=== PATIENT | female | born 1950 | race Caucasian/White ===

== ENCOUNTER → 2018-09-06 10:42 | Outpatient (CLI) | payer MEDICARE, SELFPAY ==
--- NOTE | 2018-09-06 10:50 | BI_ITS ---
MAMMOGRAPHY - BILATERAL SCREENING REASON FOR EXAM: Female, 67 years old. Routine annual screening examination. PERTINENT HISTORY: Aunt with breast cancer. TECHNIQUE: Digital bilateral breast jacoby (3D mammographic acquisition) in the CC and MLO projections. 2-D mediolateral oblique (MLO) and craniocaudad (CC) views of both breasts were obtained. CAD: Full Field Digital Mammography with Computer Added Detection was performed. COMPARISON: Comparison is made with prior study dated June 30, 2017 and June 26, 2016. FINDINGS: Breast Composition: There are scattered areas of fibroglandular density. There are no dominant masses or suspicious calcifications. Stable small bilateral axillary lymph nodes. No other significant abnormalities are identified. There has been no significant change since the prior study. BI/SCREENING MAMM (CAD), BILAT IMPRESSION: Stable bilateral screening mammogram. Yearly follow-up mammogram recommended. (A) ASSESSMENT CATEGORY: BIRADS Category 2: Benign. A letter regarding these results will be sent to the patient by the facility within 30 days. Approximately 10% of breast cancers are not detected by mammography. A normal mammogram should not delay biopsy of a clinically suspicious abnormality. [id number] Electronically Signed: Niko Gama MD at 12:34 EST , Service support ,
--- NOTE | 2018-09-06 10:50 | BD_ITS ---
STUDY: DUAL ENERGY X-RAY ABSORPTIOMETRY / DXA REASON FOR EXAM: Female, 67 years old. The patient is postmenopausal. Loss of height. TECHNIQUE: Bone Mineral Density (BMD) measurements of lumbar spine and bilateral hips were obtained. COMPARISON: Comparison is made with prior study dated December 10, 2010. FINDINGS: Lumbar Spine (L1-L4): g/cm2 (0.979) / T-score (-1.7) / Z-score (0.0) Findings are suggestive of osteopenia with a moderate fracture risk. Increased thoracic kyphosis. Left Femur Total: g/cm2 (0.788) / T-score (-1.7) / Z-score (-0.4) Left Femoral Neck: g/cm2 (0.745) / T-score (-2.1) / Z-score (-0.5) Right Femur Total: g/cm2 (0.762) / T-score (-1.9) / Z-score (-0.6) Right Femoral Neck: g/cm2 (0.963) / T-score (0.5) / Z-score (1.0) The T-Scores on the most recent prior examination were: Lumbar Spine (L1-L4): There has been improvement of bone density since the previous examination. Left Femur Total: which represents a worsening of 0.5%. Right Femur Total: which represents an improvement of 2.7%. BD/Dexa Bone Density Study IMPRESSION: The patient is considered osteopenic as outlined below according to World Lex Organization (WHO) criteria with a moderate fracture risk. There has been improvement of bone density since the previous examination. Reference Information: The T-score is the number of standard deviations above or below the standard which is normal for young adults at their peak bone mineral density. The World Health Organization (WHO) interprets the T-scores as follows: Above -1 Normal bone density Between -1 and -2.5 Osteopenia Equal to / or below -2.5 Osteoporosis As a practical clinical guideline, osteopenia may be graded as follows: Mild -1 through -1.5 Moderate -1.6 through -2.0 Severe -2.1 through -2.4 The Z-score is the number of standard deviations above or below age-matched controls. A Z-score of less than -1.5 would be considered abnormal. References: 1. NIH Osteoporosis and Related Bone Diseases http://www.osteo.org 2. International Society for Clinical Densitometry http://www.iscd.org 3. National Osteoporosis Foundation http://www.nof.org Electronically Signed: Niko Gama MD at 11:00 EST , Service support ,
== END ==
PROVIDERS: Family Provider Family Medicine; PCP Family Medicine; Referring Provider Family Medicine; Visit Provider Family Medicine
DX: Z12.31 Encounter for screening mammogram for malignant neoplasm of breast (principal); M81.0 Age-related osteoporosis without current pathological fracture; M85.80 Other specified disorders of bone density and structure, unspecified site
CPT/HCPCS: 77063; 77067; 77080

== ENCOUNTER → 2019-09-17 10:48 | Outpatient (CLI) | payer MEDICARE, SELFPAY ==
--- NOTE | 2019-09-17 10:50 | US_ITS ---
STUDY: THYROID ULTRASOUND REASON FOR EXAM: Female, 68 years old. Goiter, partial left thyroidectomy. TECHNIQUE: Ultrasound evaluation of the thyroid was performed with real-time and static walker-scale imaging. COMPARISON: May 03, 2013. FINDINGS: RIGHT LOBE: The right lobe of the thyroid gland measures 5.6 x 2.2 x 2.5 cm. There is a homogeneous echotexture. 2 complex cystic nodules, midpole measuring 1.1 x 0.9 x 0.6 cm and inferior pole measuring 0.8 x 0.8 x 0.6 cm. LEFT LOBE: The left lobe of the thyroid gland measures 6.1 x 2.5 x 2.3 cm cm. There is a homogeneous echotexture. Multiple nodules, inferior pole complex solid nodule measuring 1.6 x 1.2 x 1.2 cm, pole complex solid measuring 1.1 x 0.8 x 0.7 cm and cystic mid pole measuring 0.6 x 0.6 x 0.4 cm. ISTHMUS: The isthmus measures 5 mm which is mildly enlarged. . The regional lymph nodes are normal. US/Thyroid IMPRESSION: Enlarged thyroid gland, with both lobes not significantly changed in size since the prior study. Multiple nodules right lobe not significantly changed in size. Multiple nodules left lobe the largest of which has slightly increased in size since prior study. Electronically Signed: Robert Julien MD at 5:12 EST , Service support ,
== END ==
PROVIDERS: PCP Student in an Organized Health Care Education/Training Program; Referring Provider Student in an Organized Health Care Education/Training Program; Visit Provider Student in an Organized Health Care Education/Training Program
DX: E04.9 Nontoxic goiter, unspecified (principal)
CPT/HCPCS: 76536

== ENCOUNTER → 2019-09-24 11:54 | Outpatient (CLI) | payer MEDICARE, SELFPAY ==
--- NOTE | 2019-09-24 11:56 | BI_ITS ---
MAMMOGRAPHY - BILATERAL SCREENING REASON FOR EXAM: Female, 68 years old. Routine annual screening examination. PERTINENT HISTORY: Aunt with breast cancer. TECHNIQUE: Digital bilateral breast josé luis (3D mammographic acquisition) in the CC and MLO projections. 2-D mediolateral oblique (MLO) and craniocaudad (CC) views of both breasts were obtained. CAD: Full Field Digital Mammography with Computer Added Detection was performed. COMPARISON: Comparison is made with prior examination dated September 06, 2018 and June 30, 2017. FINDINGS: Breast Composition: There are scattered areas of fibroglandular density. There are no dominant masses or suspicious calcifications. Stable benign-appearing bilateral axillary lymph nodes. No other significant abnormalities are identified. There has been no significant change since the prior study. BI/SCREEN MAMM (CAD) W/JOSÉ LUIS BILAT IMPRESSION: Stable bilateral screening mammogram. Yearly follow-up mammogram recommended. (A) ASSESSMENT CATEGORY: BIRADS Category 2: Benign. A letter regarding these results will be sent to the patient by the facility within 30 days. Approximately 10% of breast cancers are not detected by mammography. A normal mammogram should not delay biopsy of a clinically suspicious abnormality. [id number] Electronically Signed: Niko Gama, at 13:05 EST , Service support ,
== END ==
PROVIDERS: PCP Student in an Organized Health Care Education/Training Program; Referring Provider Student in an Organized Health Care Education/Training Program; Visit Provider Student in an Organized Health Care Education/Training Program
DX: Z12.31 Encounter for screening mammogram for malignant neoplasm of breast (principal); M85.80 Other specified disorders of bone density and structure, unspecified site; Z00.00 Encounter for general adult medical examination without abnormal findings; Z80.3 Family history of malignant neoplasm of breast
CPT/HCPCS: 77063; 77067

== ENCOUNTER → 2021-03-27 12:09 | Outpatient (CLI) | payer MEDICARE, SELFPAY ==
--- NOTE | 2021-03-27 12:12 | BI_ITS ---
MAMMOGRAPHY - BILATERAL SCREENING 3-D TOMOSYNTHESIS REASON FOR EXAM: Female, 70 years old. SCREENING PERTINENT HISTORY: No significant family history. TECHNIQUE: 2-D mammograms and 3-D Tomosynthesis of the breast (s) were performed. CAD was performed. COMPARISON: 09/24/2019 FINDINGS: The breast composition is composed of scattered fibroglandular density. Scattered benign calcifications are seen. No dense spiculated masses or suspicious microcalcifications are identified. No architectural distortion is identified. There is no skin thickening or retraction. There has been no significant change since the prior study. BI/SCRN MAMM (CAD)W/JOSÉ LUIS BILAT IMPRESSION: No mammographic signs of malignancy. Routine yearly mammograms recommended. ASSESSMENT CATEGORY: BIRADS Category 1: Negative. A letter regarding these results will be sent to the patient by the facility within 30 days. FOLLOW UP RECOMMENDATION: Yearly follow up mammogram recommended. (A) Approximately 10% of breast cancers are not detected by mammography. A normal mammogram should not delay biopsy of a clinically suspicious abnormality. Electronically Signed: Koko Perdomo MD at 13:35 EDT Tel , Service support ,
== END ==
PROVIDERS: PCP Student in an Organized Health Care Education/Training Program; Referring Provider Student in an Organized Health Care Education/Training Program; Visit Provider Student in an Organized Health Care Education/Training Program
DX: Z12.31 Encounter for screening mammogram for malignant neoplasm of breast (principal)
CPT/HCPCS: 77063; 77067

== ENCOUNTER → 2021-11-18 | Outpatient (CLI) | payer MEDICARE, SELFPAY ==
--- NOTE | 2021-11-18 15:10 | US_ITS ---
STUDY: THYROID ULTRASOUND REASON FOR EXAM: Female, 70 years old. NODULES TECHNIQUE: Ultrasound evaluation of the thyroid was performed with real-time and static walker-scale imaging. COMPARISON: 09/17/2019 FINDINGS: RIGHT LOBE: The right lobe of the thyroid gland measures 5.8 x 2.6 x 1.9 cm. There is a homogeneous echotexture. Mixed solid and cystic nodules (up to TiRads 3) of the right thyroid lobe measuring up to 11 x 8 x 8 mm (stable). No new or enlarging thyroid nodule. LEFT LOBE: The left lobe of the thyroid gland measures 6.2 x 2.7 x 2.2 cm. There is a homogeneous echotexture. Mixed solid and cystic nodules (up to TiRads 3) of the right thyroid lobe measuring up to 14 x 10 x 7 mm (slightly smaller, measured up to 16 mm previously). No new or enlarging thyroid nodule. ISTHMUS: The isthmus measures 5 mm. The regional lymph nodes are normal. US/Thyroid IMPRESSION: Stable to slightly smaller thyroid nodules (up to TiRads 3). No new or enlarging thyroid nodules. Electronically Signed: Dann Cisneros MD ([place]) at 8:22 EDT ,
== END | disposition home or self-care (01) ==
PROVIDERS: PCP Student in an Organized Health Care Education/Training Program; Referring Provider Student in an Organized Health Care Education/Training Program; Visit Provider Student in an Organized Health Care Education/Training Program
DX: E04.2 Nontoxic multinodular goiter (principal)
CPT/HCPCS: 76536

== ENCOUNTER → 2022-04-23 | Outpatient (CLI) | payer MEDICARE, SELFPAY ==
--- NOTE | 2022-04-23 08:09 | BI_ITS ---
MAMMOGRAPHY - BILATERAL SCREENING REASON FOR EXAM: Female, 71 years old. Routine annual screening examination. PERTINENT HISTORY: Aunt with breast cancer. TECHNIQUE: Digital bilateral breast josé luis (3D mammographic acquisition) in the CC and MLO projections. 2-D mediolateral oblique (MLO) and craniocaudad (CC) views of both breasts were obtained. CAD: Full Field Digital Mammography with Computer Added Detection was performed. COMPARISON: Comparison is made with prior study dated 03/27/2021 and 09/24/2019. FINDINGS: Breast Composition: There are scattered areas of fibroglandular density. There are no dominant masses or suspicious calcifications. Stable small benign-appearing bilateral axillary No other significant abnormalities are identified. There has been no significant change since the prior study. BI/SCRN MAMM (CAD)W/JOSÉ LUIS BILAT IMPRESSION: Stable bilateral screening mammogram. Yearly follow-up mammogram recommended. (A) ASSESSMENT CATEGORY: BIRADS Category 2: Benign. A letter regarding these results will be sent to the patient by the facility within 30 days. Approximately 10% of breast cancers are not detected by mammography. A normal mammogram should not delay biopsy of a clinically suspicious abnormality. [id number] Electronically Signed: Niok Gama MD at 10:01 EDT ,
== END | disposition home or self-care (01) ==
LOC: OPBI 08:08
PROVIDERS: PCP Student in an Organized Health Care Education/Training Program; Visit Provider Student in an Organized Health Care Education/Training Program
DX: Z12.31 Encounter for screening mammogram for malignant neoplasm of breast (principal)
CPT/HCPCS: 77063; 77067

== ENCOUNTER → 2022-06-23 | Outpatient (CLI) | payer MEDICARE, SELFPAY ==
--- NOTE | 2022-06-23 09:23 | BD_ITS ---
STUDY: DUAL ENERGY X-RAY ABSORPTIOMETRY / DXA REASON FOR EXAM: Female, 71 years old. Osteopenia TECHNIQUE: Bone Mineral Density (BMD) measurements of lumbar spine and right hip were obtained. COMPARISON: Comparison is made with prior study dated 09/06/2018. FINDINGS: Lumbar Spine (L1-L4): g/cm2 (0.866) / T-score (-1.6) / Z-score (0.6) Findings are suggestive of osteopenia with a moderate fracture risk. Right Femur Total: g/cm2 (0.703) / T-score (-2.0) / Z-score (-0.4) Right Femoral Neck: g/cm2 (0.835) / T-score (-0.1) / Z-score (1.8) The T-Scores on the most recent prior examination were: Lumbar Spine (L1-L4): There has been improvement of bone density since the previous examination. Right Femur Total: which represents a worsening of 0.1%. BD/Dexa Bone Density Study IMPRESSION: The patient is considered osteopenic as outlined below according to World Lex Organization (WHO) criteria with a moderate fracture risk. There has been improvement of bone density since the previous examination. Reference Information: The T-score is the number of standard deviations above or below the standard which is normal for young adults at their peak bone mineral density. The World Health Organization (WHO) interprets the T-scores as follows: Above -1 Normal bone density Between -1 and -2.5 Osteopenia Equal to / or below -2.5 Osteoporosis As a practical clinical guideline, osteopenia may be graded as follows: Mild -1 through -1.5 Moderate -1.6 through -2.0 Severe -2.1 through -2.4 The Z-score is the number of standard deviations above or below age-matched controls. A Z-score of less than -1.5 would be considered abnormal. References: 1. NIH Osteoporosis and Related Bone Diseases www osteo.org 2. International Society for Clinical Densitometry www iscd.org 3. National Osteoporosis Foundation www nof.org Electronically Signed: Niko Gama MD at 10:29 EST ,
== END | disposition home or self-care (01) ==
LOC: OPBD 09:14
PROVIDERS: PCP Student in an Organized Health Care Education/Training Program; Visit Provider Internal Medicine Endocrinology, Diabetes & Metabolism
DX: N95.9 Unspecified menopausal and perimenopausal disorder (principal); Z78.0 Asymptomatic menopausal state
CPT/HCPCS: 77080

== ENCOUNTER 2023-02-10 04:26 | Emergency (ER) | payer MEDICARE, SELFPAY ==
[2023-02-10 04:28] VITALS: BP 115/86; PULSE 170; RESP 16; TEMP 36.8; O2SAT 100; BMI 29.5
[2023-02-10] MEDS: Adenosine 6 MG/2 ML Syringe IV (04:34)
[2023-02-10] MEDS: Adenosine 6 MG/2 ML Syringe 12 MG IV (04:39)
--- NOTE | 2023-02-10 04:39 | EDS_ITS ---
HPI History of Present Illness Chief Complaint: Palpitations Informant: patient Narrative Narrative: Patient presents with racing heartbeat that woke her up about an hour ago at about 3 AM. Maybe she has had this once before but it was brief, she followed up with her doctor and was put on medication for high blood pressure, that was several months ago. No known history of heart problems otherwise. She denies any chest discomfort tonight, dyspnea, syncope or near syncope. No other systemic symptoms. No recent illness, no long travel or immobilization/hospitalization recently, no history of leg pain or swelling, no history of venous thromboembolic disease. States that she usually does not drink caffeine, yesterday she did have a couple caffeinated beverages. No ngjt-ibs-inpijpn medications recently. No drug use. [facility] Medical History Arthritis Atrophy of vagina Goiter History of blood clots History of blood transfusion History of bone fractures History of cyst of breast mitral valve prolaspe Osteopenia Weight loss Home Medications aspirin 81 mg tablet,delayed release 81 mg PO DAILY@0800 06/11/13 [History Last Taken Unknown] calcium carbonate 600 mg-vitamin D3 20 mcg (800 unit) tablet 1 tab PO DAILY@0800 06/11/13 [History Last Taken Unknown] crbpsbwq-ljd-twiua acid 0.4 mg-lycopene 300 mcg-lutein 250 mcg tablet 1 ea PO DAILY 06/11/13 [History Last Taken Unknown] lisinopril 10 mg tablet 10 mg PO DAILY 02/10/23 [History Last Taken Unknown] Allergy/AdvReac Type Severity Reaction Status Date / Time chlorhexidine [From Aaliyah-Hex] Allergy Intermediate Hives Verified 02/10/23 04:42 minocycline Allergy unknown Verified 02/10/23 04:42 pneumococcal vaccine Allergy unknown Verified 02/10/23 04:42 [From Prevnar 13 (PF)] loratadine [From Claritin] AdvReac Other Verified 02/10/23 04:42 Family History Father Heart disease Kidney disease Mother Heart disease Uncle Heart disease Sister Hypertension Surgical History H/O thyroidectomy Social History Smoking Status: Never smoker alcohol intake: current alcohol intake frequency: holidays/special occasions only Alcohol type: wine substance use type: does not use what type of physical activity do you participate in: walking frequency: 3-4 times per week ROS ROS ED Constitutional Constitutional ED: Denies chills or fever(s) Eyes Eyes: Denies change in vision or diplopia ENT ENT ED: Denies rhinorrhea or sore throat Cardiovascular Cardiovascular: Reports palpitations and racing heartbeat; Denies chest pain Respiratory/Chest Respiratory/Chest: Denies cough or dyspnea Gastrointestinal Gastrointestinal: Denies abdominal pain, diarrhea, nausea or vomiting Genitourinary Genitourinary ED: Denies dysuria or hematuria Musculoskeletal Musculoskeletal: Denies back pain or neck pain Integumentary Denies abscess or rash Neurologic Neurologic: Denies headache(s), paresthesias or weakness Psychiatric Psychiatric: Denies anxiety or suicidal thoughts EXAM Physical Exam Const Vital Signs: 02/10/23 04:28 02/10/23 04:30 02/10/23 04:39 Temperature 98.2 F Temperature Source Temporal Pulse Rate 170 H Respiratory Rate 16 Respiratory Effort Normal Blood Pressure 115/86 H Blood Pressure Mean 95 Pulse Ox 100 Oxygen Delivery Method Room Air Room Air 02/10/23 04:52 02/10/23 05:35 Temperature Temperature Source Pulse Rate 88 85 Respiratory Rate 18 15 Respiratory Effort Blood Pressure 117/68 119/75 Blood Pressure Mean 84 89 Pulse Ox 100 95 Oxygen Delivery Method Room Air Room Air Positive well nourished and well developed General Appearance ED: well developed and NAD HEENT Reports moist mucous membranes normocephalic and atraumatic Eyes PERRL and EOMs intact bilaterally Neck full ROM and supple Resp normal respiratory effort and clear to auscultation bilaterally Cardio regular rate, regular rhythm and no murmurs Rate: tachycardic GI non-tender and non-distended Auscultation: normoactive bowel sounds Palpation: soft Back/Spine no CVA tenderness General Back: other FROM Extremity normal to inspection General Extremety ED: Negative for edema, pulses abnormal or tenderness General Extremity: Negative for edema or pulses abnormal Neuro oriented x3, CN's II-XII intact bilaterally and no sensory deficits noted Sensorium / Orientation: awake and alert Motor Exam: strength 5/5 throughout Psych mental status grossly normal Mood & Affect: anxious Skin no rashes or lesions noted and no wounds MDM MDM MDM Narrative Medical decision making narrative: Patient appears to be in SVT. It is faster than a flutter typically is, so she was given adenosine 6 mg IV push, this did not result in any change in her rhythm or ectopy/pauses, so this was repeated with 12 mg which resulted in breaking the rhythm to sinus tachycardia, the patient did feel better with resolution of symptoms. She had no recurrence of SVT or other dysrhythmias while being monitored. Blood work unremarkable, including troponin. With 1 episode I do not think we need to change any of her medications right now, and I do not think we need any other emergent studies or admission since she had no symptoms of angina. I advised close outpatient follow-up with cardiology return to the ER if she has recurrent symptoms/episodes. She is comfortable with that plan. Lab Data Attestation: I reviewed the patient's lab results. Labs: Laboratory Results - last 24 hr 02/10/23 04:30 WBC 10.1 RBC 4.55 Hgb 12.7 Hct 40.5 MCV 89.0 MCH 27.9 MCHC 31.4 L RDW Std Deviation 46.1 H RDW Coeff of Stephenie 14.0 Plt Count 440 MPV 9.3 Immature Gran % (Auto) 0.300 Neut % (Auto) 40.5 L Lymph % (Auto) 43.6 H [place] % (Auto) 9.8 Eos % (Auto) 5.1 H Baso % (Auto) 0.7 Absolute Neuts (auto) 4.1 Absolute Lymphs (auto) 4.42 Nucleated RBC % 0 Sodium 140 Potassium 3.6 Chloride 104 Carbon Dioxide 29.0 Anion Gap 7 BUN 9 Creatinine 0.79 Estim Creat Clear Calc 36.53 Est GFR (MDRD) Af Amer 92 Est GFR (MDRD) Non-Af 76 BUN/Creatinine Ratio 11.3 Glucose 132 H Calcium 8.9 Troponin I High Sens 6 Rhythm Strip Rhythm Strip: SVT Rate: 175 Ectopy: None EKG Initial EKG: Attestation: I personally reviewed and interpreted this EKG as follows: Interpretation: No Acute Injury Pattern, Non-Specific ST Changes and - (Narrow complex supraventricular tachycardia) Prior: Changed (rhythm) Follow-up EKG: Attestation: I personally reviewed and interpreted this EKG as follows: Interpretation: Sinus Rhythm and No Acute Injury Pattern Prior EKG tracings: available for review (old, 101) Prior: Changed Procedures Other Procedures Procedure(s): Pharmacologic cardioversion with IV adenosine Critical Care Time Critical Care Time: Yes Critical care time (excluding procedures): 30-74 minutes (33 min, not including procedure time), Including time spent:, Discussing w/Patient &/or Family/Stereotype Molder, Discussing w/Consultants, Arranging Admission or Transfer and Performing Direct Patient Care at Bedside Discharge Plan Triage Chief Complaint: Palpitations ED Provider: Андрей Chang Dx/Rx/DC Orders Clinical Impression: Supraventricular tachycardia Instructions: ED Understanding Supraventricular Tachycardia (SVT) Prescriptions: No Action aspirin 81 MG tablet 81 mg PO DAILY@0800 cuuzpyja-aou-VW-lycopen-lutein 1 EACH tablet 1 ea PO DAILY calcium carbonate-vitamin D3 1 TAB tablet 1 tab PO DAILY@0800 lisinopril 10 mg tablet 10 mg PO DAILY Patient Comments: TAKE 1 TABLET BY MOUTH EVERY DAY Primary Care Provider: Yaakov Morris Referrals: Jaleel Wolfe MD [Med Staff - Active Staff] - As soon as possible Yaakov Morris DO [Primary Care Provider] - Disposition Disposition: Home, Self Care
[2023-02-10 04:45] LABS: Absolute Lymphocyte Count 4.42 X10^3/uL (0.83-4.51); Absolute Neutrophil Count 4.1 X10^3/uL (2.0-7.7); Basophil# 0.07 X10^3/uL; Basophil% 0.7 % (0-1); Eosinophil# 0.52 X10^3/uL; Eosinophils% 5.1 % (0-5); Hematocrit 40.5 % (37-47); Hemoglobin 12.7 g/dL (12.0-15.0); Lymphocyte # 4.42 X10^3/ul (0.83-4.51); Lymphocyte % 43.6 % (19-41); Mean Corp Hgb Conc 31.4 g/dL (32-36); Mean Corpuscular Hgb 27.9 pg (27.0-32.0); Mean Platelet Vol. 9.3 fl (6.2-12.0); Monocyte# 0.99 X10^3/uL; Monocyte% 9.8 % (0-10); NRBC Flagged by Analyzer 0 % (0-5); Neutrophil % 40.5 % (47-70); Platelet Count 440 K/mm3 (150-450); RBC Distribution Width SD 46.1 fl (35.1-43.9); Red Blood Count 4.55 M/mm3 (4.2-5.4); White Blood Count 10.1 K/mm3 (4.4-11.0)
[2023-02-10 04:52] VITALS: BP 117/68; PULSE 88; RESP 18; O2SAT 100
[2023-02-10 05:03] LABS: Anion Gap 7 (5-15); BUN 9 mg/dL (7-18); BUN/Creat Ratio 11.3 RATIO (10-20); Calcium,Total 8.9 mg/dL (8.5-10.1); Chloride 104 mmol/L (98-107); Creatinine, Serum 0.79 mg/dL (0.55-1.02); EST Glomerular Filtration Rate 76 mL/min (>60); Est Glom Filt Rate - Afr Amer 92 mL/min (>60); Estimated Creatinine Clearance 36.53 ml/min; Glucose 132 mg/dL (74-106); Potassium 3.6 mmol/L (3.5-5.1); Sodium Level 140 mmol/L (136-145); Troponin-I HS (w/2H Reflex) 6 pg/mL (3.0-54.0)
[2023-02-10 05:35] VITALS: BP 119/75; PULSE 85; RESP 15; O2SAT 95
[2023-02-10 05:57] VITALS: BP 120/75; PULSE 98; RESP 17; O2SAT 100
[2023-02-10 06:38] LABS: Reflex Troponin-HS? (from REC) Y
== END 2023-02-10 05:57 | disposition home or self-care (01) ==
PROVIDERS: Emergency Provider Emergency Medicine; PCP Student in an Organized Health Care Education/Training Program; Visit Provider Emergency Medicine
DX: I47.1 Supraventricular tachycardia (principal); I10 Essential (primary) hypertension; Z79.82 Long term (current) use of aspirin; Z79.899 Other long term (current) drug therapy
CPT/HCPCS: 80048; 84484; 85025; 93005; 96374; 99284; A4216; J0153

== ENCOUNTER 2023-02-25 10:45 | Emergency (ER) | payer MEDICARE, SELFPAY ==
[2023-02-25 10:46] VITALS: BP 185/100; PULSE 104; RESP 14; TEMP 36; O2SAT 99; BMI 28.3
--- NOTE | 2023-02-25 10:58 | EKG12_ITS ---
Test Reason : PALP Blood Pressure : / mmHG Vent. Rate : 084 BPM Atrial Rate : 084 BPM P-R Int : 162 ms QRS Dur : 076 ms QT Int : 362 ms P-R-T Axes : 074 003 047 degrees QTc Int : 427 ms Normal sinus rhythm Normal ECG Confirmed by ARTUR PEACOCK, VERENICE ([id number]), photograph editor RICKI LEPE ([id number]) on 02/28/2023 1:08:33 PM Referred By: Confirmed By:VERENICE SIDDIQUI MD
[2023-02-25] MEDS: Aspirin 81 MG TAB.CHEW 324 MG PO (11:10)
[2023-02-25 11:11] VITALS: BP 151/84; PULSE 81; RESP 21; O2SAT 100
[2023-02-25 11:19] LABS: Absolute Lymphocyte Count 1.76 X10^3/uL (0.83-4.51); Absolute Neutrophil Count 3.6 X10^3/uL (2.0-7.7); Basophil# 0.02 X10^3/uL; Basophil% 0.3 % (0-1); Eosinophil# 0.07 X10^3/uL; Eosinophils% 1.2 % (0-5); Hematocrit 38.9 % (37-47); Hemoglobin 12.9 g/dL (12.0-15.0); Lymphocyte # 1.76 X10^3/ul (0.83-4.51); Lymphocyte % 29.5 % (19-41); Mean Corp Hgb Conc 33.2 g/dL (32-36); Mean Corpuscular Hgb 28.2 pg (27.0-32.0); Mean Corpuscular Volume 85.1 fL (81-99); Mean Platelet Vol. 8.7 fl (6.2-12.0); Monocyte# 0.48 X10^3/uL; NRBC Flagged by Analyzer 0 % (0-5); Neutrophil # 3.63 X10^3/uL (2.7-7.7); Neutrophil % 60.8 % (47-70); Platelet Count 401 K/mm3 (150-450); RBC Distribution Width CV 13.7 % (11.6-14.6); RBC Distribution Width SD 42.5 fl (35.1-43.9); Red Blood Count 4.57 M/mm3 (4.2-5.4)
--- NOTE | 2023-02-25 11:25 | EX.ED.DYSGE1 ---
HPI History of Present Illness Chief Complaint: Palpitations Narrative Narrative: 72-year-old female presenting with palpitations. She states that last evening she started to worry about things and she felt her heart rate go up. Since he has a history of SVT she is concerned she might be in SVT. She states that she woke up this morning and was wearing again and started to have palpitations again. She states that she was driving after this. While she was sitting in a light she felt a moment of weakness and then she felt normal again. Patient has not had any chest pain and does not feel short of breath. No nausea or vomiting. No dizziness. Patient was seen recently for SVT and she is not on any rate control. She made a follow-up appoint with Dr. Reid later in February. [facility] Medical History Arthritis Atrophy of vagina Goiter History of blood clots History of blood transfusion History of bone fractures History of cyst of breast mitral valve prolaspe Osteopenia Weight loss Home Medications aspirin 81 mg tablet,delayed release 81 mg PO DAILY@0800 06/11/13 [History Last Taken Unknown] calcium carbonate 600 mg-vitamin D3 20 mcg (800 unit) tablet 1 tab PO DAILY@0800 06/11/13 [History Last Taken Unknown] gygkqdts-yvd-adxxe acid 0.4 mg-lycopene 300 mcg-lutein 250 mcg tablet 1 ea PO DAILY 06/11/13 [History Last Taken Unknown] lisinopril 10 mg tablet 10 mg PO DAILY 02/10/23 [History Last Taken Unknown] metoprolol tartrate 25 mg tablet 25 mg PO BID #60 tabs 02/25/23 [Rx Last Taken Unknown] Allergy/AdvReac Type Severity Reaction Status Date / Time chlorhexidine [From Aaliyah-Hex] Allergy Intermediate Hives Verified 02/25/23 10:45 minocycline Allergy unknown Verified 02/25/23 10:45 pneumococcal vaccine Allergy unknown Verified 02/25/23 10:45 [From Prevnar 13 (PF)] loratadine [From Claritin] AdvReac Other Verified 02/25/23 10:45 Family History Father Heart disease Kidney disease Mother Heart disease Uncle Heart disease Sister Hypertension Surgical History H/O thyroidectomy Social History Smoking Status: Never smoker alcohol intake: current alcohol intake frequency: holidays/special occasions only Alcohol type: wine substance use type: does not use what type of physical activity do you participate in: walking frequency: 3-4 times per week ROS ROS ED Constitutional Constitutional ED: Denies chills, fever(s) or sweats Eyes Eyes: Denies blurry vision or change in vision ENT ENT ED: Denies ear pain or sore throat Cardiovascular Cardiovascular: Reports palpitations and racing heartbeat; Denies chest pain Respiratory/Chest Respiratory/Chest: Denies cough, dyspnea or sputum Gastrointestinal Gastrointestinal: Denies abdominal pain, constipation, diarrhea, nausea or vomiting Genitourinary Genitourinary ED: Denies dysuria, hematuria or urinary frequency Musculoskeletal Musculoskeletal: Denies arthralgias, myalgias or neck pain Integumentary Denies abscess, Abrasions or rash Neurologic Neurologic: Denies headache(s), paresthesias or weakness Psychiatric Psychiatric: Reports anxiety; Denies depression, suicidal ideation or suicidal thoughts Endocrine Endocrinology: Denies polydipsia or polyuria EXAM Physical Exam Const Vital Signs: 02/25/23 10:46 02/25/23 11:11 02/25/23 11:11 Temperature 96.8 F L Temperature Source Temporal Pulse Rate 104 H 81 Respiratory Rate 14 21 H Respiratory Effort Blood Pressure 185/100 H 151/84 H Blood Pressure Mean 128 106 Pulse Ox 99 100 Oxygen Delivery Method Room Air Room Air Room Air 02/25/23 11:11 02/25/23 13:10 Temperature Temperature Source Pulse Rate 77 Respiratory Rate 17 Respiratory Effort Normal Non-Labored Blood Pressure 160/107 H Blood Pressure Mean 124 Pulse Ox Oxygen Delivery Method Positive well nourished General Appearance ED: NAD HEENT Reports moist mucous membranes Eyes PERRL and EOMs intact bilaterally Resp normal respiratory effort and clear to auscultation bilaterally Cardio regular rate and regular rhythm Neuro oriented x3 and CN's II-XII intact bilaterally Skin no rashes or lesions noted MDM MDM MDM Narrative Medical decision making narrative: Patient presenting with palpitations. She is concerned she was in SVT. It does sound as if she converted while she was sitting at the stoplight. She is not reporting any chest pain. Her EKG was a normal sinus rhythm with a ventricular rate of 84 bpm without sign of ischemic change or ectopy. I did obtain a CBC and CMP to check her white blood cell count, hemoglobin, electrolytes, renal function, liver function. These were all within normal limits. High-sensitivity troponin and EKG were checked for transfer ischemia. High-sensitivity troponin is 4. Since she had the symptoms since last night I do not believe she needs a delta troponin. Chest x-ray my interpretation shows no acute process. Radiologist services and agrees. Discussed the case with Dr. Troncoso he has the patient is supposed to follow-up with Dr. Reid this month. We will start her on metoprolol tartrate 25 mg p.o. twice daily to keep her out of SVT. She is amenable to this. She is discharged home in stable condition. Impression: 1. Palpitations 2. History of SVT Lab Data Attestation: I reviewed the patient's lab results. Labs: Laboratory Results - last 24 hr 02/25/23 11:00 WBC 6.0 RBC 4.57 Hgb 12.9 Hct 38.9 MCV 85.1 MCH 28.2 MCHC 33.2 RDW Std Deviation 42.5 RDW Coeff of Stephenie 13.7 Plt Count 401 MPV 8.7 Immature Gran % (Auto) 0.200 Neut % (Auto) 60.8 Lymph % (Auto) 29.5 Robertson % (Auto) 8.0 Eos % (Auto) 1.2 Baso % (Auto) 0.3 Absolute Neuts (auto) 3.6 Absolute Lymphs (auto) 1.76 Nucleated RBC % 0 Sodium 140 Potassium 3.7 Chloride 106 Carbon Dioxide 29.0 Anion Gap 5 BUN 9 Creatinine 0.69 Estim Creat Clear Calc 36.53 Est GFR (MDRD) Af Amer 107 Est GFR (MDRD) Non-Af 89 BUN/Creatinine Ratio 13.0 Glucose 107 H Calcium 9.0 Total Bilirubin 0.40 AST 19 ALT 24 Alkaline Phosphatase 101 Troponin I High Sens 4 Total Protein 7.6 Albumin 3.7 Globulin 3.9 Albumin/Globulin Ratio 0.9 Radiography Diagnostic Testing: Clinical Impression(s) from Imaging Studies Chest X-Ray 02/25/23 11:54 IMPRESSION: No acute abnormality is seen. Electronically Signed: Niko Gama MD at 12:36 EDT , Discharge Plan Triage Chief Complaint: Palpitations ED Provider: Tevin Vargas Dx/Rx/DC Orders Instructions: ED Understanding Supraventricular Tachycardia (SVT) Prescriptions: New metoprolol tartrate 25 mg tablet 25 mg PO BID Qty: 60 0RF No Action aspirin 81 MG tablet 81 mg PO DAILY@0800 pzajzcas-pkr-DM-lycopen-lutein 1 EACH tablet 1 ea PO DAILY calcium carbonate-vitamin D3 1 TAB tablet 1 tab PO DAILY@0800 lisinopril 10 mg tablet 10 mg PO DAILY Patient Comments: TAKE 1 TABLET BY MOUTH EVERY DAY Primary Care Provider: Yaakov Morris Referrals: Jorgito Reid MD [Med Staff - Active Staff] - 3-5 Days Yaakov Mroris DO [Primary Care Provider] - Disposition Disposition: Home, Self Care Discharge Date/Time: 02/25/23 13:17
[2023-02-25 11:37] LABS: ALB/GLOB Ratio 0.9 RATIO (0.9-2.4); AST(SGOT) 19 U/L (15-37); Alanine Aminotransfer ALT/SGPT 24 U/L (13-56); Albumin, Serum 3.7 g/dL (3.2-5.0); Alkaline Phosphatase 101 U/L (45-117); Anion Gap 5 (5-15); BUN 9 mg/dL (7-18); Chloride 106 mmol/L (98-107); Creatinine, Serum 0.69 mg/dL (0.55-1.02); EST Glomerular Filtration Rate 89 mL/min (>60); Est Glom Filt Rate - Afr Amer 107 mL/min (>60); Estimated Creatinine Clearance 36.53 ml/min; Globulin 3.9 g/dL (2.2-4.2); Glucose 107 mg/dL (74-106); Potassium 3.7 mmol/L (3.5-5.1); Protein, Total 7.6 g/dL (6.4-8.2); Sodium Level 140 mmol/L (136-145); Troponin-I HS 4 pg/mL (3.0-54.0)
--- NOTE | 2023-02-25 11:54 | RAD_ITS ---
STUDY: X-RAY CHEST REASON FOR EXAM: Female, 72 years old. chest pain TECHNIQUE: Single AP portable view of the chest. COMPARISON: None. FINDINGS: EKG electrodes are seen. Scattered calcified granulomas. Lungs are clear. There is no demonstrated pleural abnormality. Normal size heart. Calcified right hilar lymph nodes. Normal visualized pulmonary arteries. There is atherosclerotic calcification of the aortic arch with tortuosity. Normal visualized thoracic spine. Normal visualized ribs, clavicles, and shoulders. There is no demonstrated abnormality of the visualized soft tissue structures of the upper abdomen. RAD/Chest 1 View (Portable) IMPRESSION: No acute abnormality is seen. Electronically Signed: Niko Gama MD at 12:36 EDT ,
[2023-02-25 13:10] VITALS: BP 160/107; PULSE 77; RESP 17
== END 2023-02-25 13:17 | disposition home or self-care (01) ==
PROVIDERS: Emergency Provider Student in an Organized Health Care Education/Training Program; PCP Student in an Organized Health Care Education/Training Program; Visit Provider Student in an Organized Health Care Education/Training Program
DX: R00.2 Palpitations (principal); E89.0 Postprocedural hypothyroidism; Z79.82 Long term (current) use of aspirin; Z79.899 Other long term (current) drug therapy
CPT/HCPCS: 71045; 80053; 84484; 85025; 93005; 99283

== ENCOUNTER → 2023-03-09 | Outpatient (CLI) | payer MEDICARE, SELFPAY ==
[2023-03-09 12:02] LABS: Thyroid Stim Hormone (TSH) 0.19 uIU/mL (0.358-3.74)
== END | disposition home or self-care (01) ==
LOC: LAB 10:59
PROVIDERS: PCP Student in an Organized Health Care Education/Training Program; Referring Provider Internal Medicine Cardiovascular Disease; Visit Provider Internal Medicine Cardiovascular Disease
DX: E04.2 Nontoxic multinodular goiter (principal); I10 Essential (primary) hypertension; R00.2 Palpitations; Z86.79 Personal history of other diseases of the circulatory system
CPT/HCPCS: 36415; 84443

== ENCOUNTER → 2023-04-06 | Outpatient (CLI) | payer MEDICARE, SELFPAY ==
--- NOTE | 2023-04-06 06:57 | ECHOD_ITS ---
Reason For Study: Chest Pain Procedure This was a 2D Doppler, Color Flow transthoracic echocardiogram. Exam performed in department. Left Ventricle Normal size and thickness. The left ventricular ejection fraction is 65 %. Normal diastology for age. Right Ventricle Normal right ventricle. Atria The left and right atria are normal. Mitral Valve Mild (1+) mitral valve insufficiency. Tricuspid Valve Mild tricuspid valve insufficiency. Normal pulmonary artery pressure. Aortic Valve Normal aortic valve. Pulmonic Valve Mild (1+) pulmonic valve insufficiency. Great Vessels Normal sized aortic root. Pericardium/Pleural No pericardial effusion. MMode/2D Measurements & Calculations LVIDd: 4.4 cm IVSd: 0.97 cm Ao root diam: 3.1 cm LVIDs: 2.2 cm LVPWd: 1.0 cm RVDd: 3.0 cm FS: 50.1 % LAV(MOD-bp): 33.8 ml LVAd ap4: 19.3 cm2 SV(MOD-sp4): 28.9 ml LAV(MOD-bp) Indexed: 20.9 ml/m2 LVLd ap4: 6.8 cm LAV(MOD-sp2): 33.9 ml EDV(MOD-sp4): 45.0 ml LAV(MOD-sp4): 29.9 ml EDV(sp4-el): 46.5 ml LVAs ap4: 9.7 cm2 LVLs ap4: 5.1 cm ESV(MOD-sp4): 16.0 ml ESV(sp4-el): 15.8 ml EF(MOD-sp4): 64.3 % EF(sp4-el): 66.1 % SV(sp4-el): 30.8 ml LA A4 area: 13.8 cm2 LA dimension(2D): 3.8 cm RA A4 area: 10.9 cm2 TAPSE: 2.5 cm Time Measurements MV dec time: 0.21 sec Doppler Measurements & Calculations MV E max zaheer: 96.1 cm/sec Lat Peak E' Zaheer: 9.1 cm/sec Med Peak E' Zaheer: 7.9 cm/sec MV A max zaheer: 107.9 cm/sec E/E' lat: 10.6 E/E' med: 12.2 MV E/A: 0.89 Ao V2 max: 147.2 cm/sec LV V1 max: 128.0 cm/sec MV dec slope: 447.6 cm/sec2 Ao max P.7 mmHg LV V1 max P.6 mmHg Ao V2 mean: 111.4 cm/sec LV V1 mean P.3 mmHg Ao mean P.3 mmHg LV V1 mean: 84.1 cm/sec Ao V2 VTI: 31.0 cm LV V1 VTI: 26.7 cm AV (velocity ratio): 0.86 PA V2 max: 104.0 cm/sec PI end-d zaheer: 110.5 cm/sec TR max zaheer: 257.2 cm/sec TR max P.5 mmHg ECHO/Echo Complete Interpretation Summary The left ventricular ejection fraction is 65 %. Mild (1+) mitral valve insufficiency. Mild tricuspid valve insufficiency. Mild (1+) pulmonic valve insufficiency. Ordering Physician: Jorgito Reid Referring Physician: Yaakov Morris Performed By: Amaya Garcia, RDCS, RVT
--- NOTE | 2023-04-06 13:04 | STRESSREP ---
Stress Test Report Date: 04/06/2023 Procedure: Pharmacologic stress nuclear imaging study Indications: Arrhythmia Consent: Per the patient Procedure: The patient underwent pharmacologic (Regadenoson 0.4mg ) evaluation with a peak heart rate of 106 beats per minute (71%predicted maximal heart rate) and a peak blood pressure of 136/70 mmHg. The baseline ECG demonstrated sinus rhythm. The peak pharmacologic ECG demonstrated no ischemic changes. There were no cardiac dysrhythmias pretest, during pharmacologic infusion, or recovery. There was no complaint of chest discomfort during pharmacologic infusion or recovery. The patient was injected with 11.1 millicuries of technetium 99m Cardiolite and subsequently rest SPECT Cardiolite nuclear imaging was obtained in the horizontal long, vertical long, and short axis views. The patient underwent pharmacologic (Regadenoson) evaluation. The patient was injected with 33.2 millicuries of technetium 99m Cardiolite and subsequently stress SPECT Cardiolite nuclear imaging was obtained in the horizontal long, vertical long, and short axis views. A gated Cardiolite study at peak stress was obtained. The examination was stopped secondary to completion of protocol. Rest and stress SPECT Cardiolite nuclear imaging status post realignment, normalization, and attenuation correction demonstrate no fixed or reversible perfusion defects. There is end systolic thickening and brightening. The gated Cardiolite study demonstrates myocardial thickening and inward wall motion. The reported LVEF is 79%. Impression: 1. Pharmacologic (Regadenoson) evaluation 2. Peak pharmacologic ECG with with no ischemic changes. 3. There were no cardiac dysrhythmias pretest, during pharmacologic infusion, or recovery. 5. Rest and stress SPECT Cardiolite nuclear imaging demonstrate relative uniform tracer uptake and myocardial perfusion appearing within normal limits. 6. The gated Cardiolite study reports an LVEF of 79%. This note was generated with [email or web address] software. It may contain incorrect words, spelling, and punctuation that were not noted in checking the note before signing.
== END | disposition home or self-care (01) ==
LOC: CVS 06:53
PROVIDERS: PCP Student in an Organized Health Care Education/Training Program; Referring Provider Internal Medicine Cardiovascular Disease; Visit Provider Internal Medicine Cardiovascular Disease
DX: R00.2 Palpitations (principal); I10 Essential (primary) hypertension; Z86.79 Personal history of other diseases of the circulatory system; R07.9 Chest pain, unspecified
CPT/HCPCS: 78452; 93017; 93306; A9500; A4216; J2785

== ENCOUNTER → 2023-05-12 | Outpatient (CLI) | payer MEDICARE, SELFPAY ==
--- NOTE | 2023-05-12 13:42 | BI_ITS ---
MAMMOGRAPHY - BILATERAL SCREENING REASON FOR EXAM: Female, 72 years old. Routine annual screening examination. PERTINENT HISTORY: Aunt with breast cancer. TECHNIQUE: Digital bilateral breast josé luis (3D mammographic acquisition) in the CC and MLO projections. 2-D mediolateral oblique (MLO) and craniocaudad (CC) views of both breasts were obtained. CAD: Full Field Digital Mammography with Computer Added Detection was performed. COMPARISON: Comparison is made with prior study April 23, 2022 and March 27, 2021. FINDINGS: Breast Composition: There are scattered areas of fibroglandular density. There are no dominant masses or suspicious calcifications. Stable small benign-appearing bilateral axillary lymph nodes. No other significant abnormalities are identified. There has been no significant change since the prior study. BI/SCRN MAMM (CAD)W/JOSÉ LUIS BILAT IMPRESSION: Stable bilateral screening mammogram. Yearly follow-up mammogram recommended. (A) ASSESSMENT CATEGORY: BIRADS Category 2: Benign. A letter regarding these results will be sent to the patient by the facility within 30 days. Approximately 10% of breast cancers are not detected by mammography. A normal mammogram should not delay biopsy of a clinically suspicious abnormality. [id number] Electronically Signed: Niko Gama MD at 15:23 EDT ,
== END | disposition home or self-care (01) ==
LOC: OPBI 13:41
PROVIDERS: PCP Student in an Organized Health Care Education/Training Program; Referring Provider Student in an Organized Health Care Education/Training Program; Visit Provider Student in an Organized Health Care Education/Training Program
DX: Z12.31 Encounter for screening mammogram for malignant neoplasm of breast (principal)
CPT/HCPCS: 77063; 77067

== ENCOUNTER 2023-06-25 03:02 | Emergency (ER) | payer MEDICARE, SELFPAY ==
[2023-06-25 03:03] VITALS: BP 168/94; PULSE 93; RESP 13; TEMP 36.6; O2SAT 95; BMI 29.3
--- NOTE | 2023-06-25 03:29 | EKG12_ITS ---
Test Reason : PALPITATIONS Blood Pressure : / mmHG Vent. Rate : 086 BPM Atrial Rate : 086 BPM P-R Int : 214 ms QRS Dur : 082 ms QT Int : 364 ms P-R-T Axes : 053 008 025 degrees QTc Int : 435 ms Sinus rhythm with 1st degree A-V block Otherwise normal ECG Confirmed by ARTUR PEACOCK, VERENICE ([id number]), material expeditor MONICA MORENO ([id number]) on 06/27/2023 10:51:07 AM Referred By: MUNA Confirmed By:VERENICE SIDDIQUI MD
--- NOTE | 2023-06-25 03:29 | EX.ED.DYSGE1 ---
HPI History of Present Illness Chief Complaint: Palpitations Informant: patient Narrative Narrative: Patient presents by EMS after waking up suddenly with racing heartbeat. She felt like she was in SVT, given prior episodes of this. She has had to come to the ED to be cardioverted from it in the past. Patient states maybe this lasted between 30 and 45 minutes today, by the time EMS arrived her symptoms were gone and she felt better. Their EKG was normal, and her heart rate was 90. She states she clocked her heart rate at home prior to them arriving and it was 180, and her blood pressure was high. She denies any chest pain, dyspnea, lightheadedness, syncope, or any other symptoms. Now she is asymptomatic except for the diarrhea she has been having. She states she has had diarrhea for about 2-1/2 weeks. She has been following with her doctor for this, it is for the most part between 5 and 10 bouts of watery nonbloody diarrhea per day. No abdominal pain. No nausea or vomiting. She thinks it may be related to sertraline she started 2 months ago. She has had stool studies that were negative, no recent antibiotics. [facility] Medical History Arthritis Atrophy of vagina Axillary lymphadenopathy Essential hypertension Family history of ischemic heart disease Goiter History of blood clots History of blood transfusion History of bone fractures History of cyst of breast History of paroxysmal supraventricular tachycardia Hyperlipidemia Hypertriglyceridemia Inguinal lymphadenopathy Iron deficiency anemia Low TSH level Mild mitral valve prolapse mitral valve prolaspe Multinodular goiter (nontoxic) Multiple thyroid nodules Osteopenia Osteopenia determined by x-ray Osteoporosis Palpitations Thrombocytosis Toxic nodular goiter Vitamin D deficiency Weight loss Home Medications aspirin 81 mg tablet,delayed release 81 mg PO DAILY@0800 06/11/13 [History Last Taken Unknown] lisinopril 10 mg tablet 10 mg PO DAILY 02/10/23 [History Last Taken Unknown] calcium carbonate 600 mg-vitamin D3 20 mcg (800 unit) tablet 1 tab PO DAILY 03/09/23 [History Last Taken Unknown] ferrous sulfate 325 mg (65 mg iron) tablet 325 mg PO .TT 03/09/23 [History Last Taken Unknown] wgetkuaj-sbw-svzjs acid 0.4 mg-lycopene 300 mcg-lutein 250 mcg tablet 1 tab PO DAILY 03/09/23 [History Last Taken Unknown] acetaminophen 325 mg tablet (Tylenol) 325 mg PO Q6H PRN pain 06/06/23 [History Last Taken Unknown] melatonin 10 mg tablet 10 mg PO HS 06/06/23 [History Last Taken Unknown] methimazole 5 mg tablet 2.5 mg (1/2 x 5 mg) PO .Mon,Wed,Fri only #20 tabs 06/06/23 [Rx Last Taken Unknown] sertraline 25 mg tablet 25 mg PO DAILY 06/06/23 [History Last Taken Unknown] metoprolol tartrate 50 mg tablet 50 mg PO BID #180 tabs 06/07/23 [Rx Last Taken Unknown] diphenoxylate-atropine 2.5 mg-0.025 mg tablet (Lomotil) 1 tab PO Q6H PRN PRN diarrhea #12 tabs 06/25/23 [Rx Last Taken Unknown] Allergy/AdvReac Type Severity Reaction Status Date / Time chlorhexidine [From Aaliyah-Hex] Allergy Intermediate Hives Verified 06/07/23 13:34 minocycline Allergy unknown Verified 06/07/23 13:34 pneumococcal vaccine Allergy unknown Verified 06/07/23 13:34 [From Prevnar 13 (PF)] loratadine [From Claritin] AdvReac Other Verified 06/07/23 13:34 Family History Father Heart disease Kidney disease Myocardial infarction Mother Heart disease Uncle Heart disease Sister Hypertension CAD (coronary artery disease) Brother CAD (coronary artery disease) Hypertension Surgical History H/O thyroidectomy Hx of dilation and curettage Hx of fracture of femur S/P multiple system trauma surgery Social History Smoking Status: Never smoker alcohol intake: current alcohol intake frequency: holidays/special occasions only Alcohol type: wine substance use type: does not use caffeine: No what type of physical activity do you participate in: walking frequency: 3-4 times per week ROS ROS ED Constitutional Constitutional ED: Denies chills or fever(s) Eyes Eyes: Denies change in vision or diplopia ENT ENT ED: Denies rhinorrhea or sore throat Cardiovascular Cardiovascular: Reports palpitations and racing heartbeat; Denies chest pain Respiratory/Chest Respiratory/Chest: Denies cough or dyspnea Gastrointestinal Gastrointestinal: Reports diarrhea; Denies abdominal pain, nausea or vomiting Genitourinary Genitourinary ED: Denies dysuria or hematuria Musculoskeletal Musculoskeletal: Denies back pain or neck pain Integumentary Denies abscess or rash Neurologic Neurologic: Denies headache(s), paresthesias or weakness Psychiatric Psychiatric: Denies anxiety or suicidal thoughts EXAM Physical Exam Const Vital Signs: 06/25/23 03:03 06/25/23 03:07 06/25/23 06:04 Temperature 98 F 98 F Temperature Source Oral Pulse Rate 93 89 Respiratory Rate 13 16 Respiratory Pattern Normal Blood Pressure 168/94 H Blood Pressure Mean 118 Pulse Ox 95 98 Oxygen Delivery Method Room Air Positive well nourished and well developed General Appearance ED: well developed and NAD HEENT Reports moist mucous membranes normocephalic and atraumatic Eyes PERRL and EOMs intact bilaterally Neck full ROM and supple Resp normal respiratory effort and clear to auscultation bilaterally Cardio regular rate, regular rhythm and no murmurs GI non-tender and non-distended Auscultation: normoactive bowel sounds Palpation: soft Back/Spine no CVA tenderness General Back: other FROM Extremity normal to inspection General Extremety ED: Negative for edema, pulses abnormal or tenderness General Extremity: Negative for edema or pulses abnormal Neuro oriented x3, CN's II-XII intact bilaterally and no sensory deficits noted Sensorium / Orientation: awake and alert Motor Exam: strength 5/5 throughout Skin no rashes or lesions noted and no wounds MDM MDM MDM Narrative Medical decision making narrative: Given her diarrhea, labs ordered to evaluate for electrolyte disturbance, it shows hypokalemia at 3.3, her calcium is a little low as well but not much and we did not check her albumin to see if when corrected it is in the normal range but I do not think we need to because it is 8.3. She was given IV and oral potassium replacement, plan will be to observe her until those are complete and allow her to go home assuming she does not go into SVT again. At the current time her vital signs are stable her blood pressure has been coming down gradually with observation, she was given some fluids as well to hydrate her, and her heart rate has been stable around 90. Will have her follow-up with her doctor. She would like something for the diarrhea, we discussed Imodium but she is concerned about the QT prolongation risk and her history of dysrhythmias. Given this, I gave her a short prescription for diphenoxylate/atropine to use as needed. She did not have stool here for us to send, she has no risk factors for C. difficile here and states she had negative stool studies when tested before. Lab Data Attestation: I reviewed the patient's lab results. Labs: Laboratory Results - last 24 hr 06/25/23 03:45 WBC 7.9 RBC 4.14 L Hgb 11.2 L Hct 37.0 MCV 89.4 MCH 27.1 MCHC 30.3 L RDW Std Deviation 45.3 H RDW Coeff of Stephenie 13.8 Plt Count 379 MPV 9.7 Immature Gran % (Auto) 0.400 Neut % (Auto) 55.6 Lymph % (Auto) 30.1 Dickenson % (Auto) 9.5 Eos % (Auto) 3.9 Baso % (Auto) 0.5 Absolute Neuts (auto) 4.4 Absolute Lymphs (auto) 2.39 Nucleated RBC % 0 Sodium 142 Potassium 3.3 L Chloride 106 Carbon Dioxide 27.0 Anion Gap 9 BUN 8 Creatinine 0.81 Estim Creat Clear Calc 45.09 Est GFR (MDRD) Af Amer 90 Est GFR (MDRD) Non-Af 74 BUN/Creatinine Ratio 9.9 L Glucose 105 Calcium 8.3 L Rhythm Strip Rhythm Strip: Sinus Rhythm Rate: 90 Ectopy: None EKG Initial EKG: Attestation: I personally reviewed and interpreted this EKG as follows: Interpretation: Sinus Rhythm, No Acute Injury Pattern and AV Block (1st deg) Prior EKG tracings: available for review Prior: Unchanged Discharge Plan Triage Chief Complaint: Palpitations ED Provider: Андрей Chang Dx/Rx/DC Orders Clinical Impression: Rapid palpitations, Acute diarrhea, Acute hypokalemia Instructions: Hypokalemia Dc Prescriptions: New diphenoxylate-atropine [Lomotil] 2.5-0.025 mg tablet 1 tab PO Q6H PRN PRN (Reason: diarrhea) Qty: 12 0RF Rx Instructions: max 8 tabs/day No Action ferrous sulfate 325 mg (65 mg iron) tablet 325 mg PO .TTHS acetaminophen [Tylenol] 325 mg tablet 325 mg PO Q6H PRN (Reason: pain) melatonin 10 mg tablet 10 mg PO HS sertraline 25 mg tablet 25 mg PO DAILY Patient Comments: TAKE 1 TABLET BY MOUTH EVERY DAY X60 DAYS methimazole 5 mg tablet 2.5 mg PO .Mon,Wed,Fri only Qty: 20 3RF metoprolol tartrate 50 mg tablet 50 mg PO BID Qty: 180 3RF aspirin 81 MG tablet 81 mg PO DAILY@0800 calcium carbonate-vitamin D3 600 mg-20 mcg (800 unit) tablet 1 tab PO DAILY tkgqhprq-ztb-OK-lycopen-lutein 0.4 mg-300 mcg- 250 mcg tablet 1 tab PO DAILY lisinopril 10 mg tablet 10 mg PO DAILY Patient Comments: TAKE 1 TABLET BY MOUTH EVERY DAY Primary Care Provider: Yaakov Morris Referrals: Yaakov Morris DO [Primary Care Provider] - As soon as possible Disposition Disposition: Home, Self Care Discharge Date/Time: 06/25/23 06:05
[2023-06-25] MEDS: 0.9% Normal Saline (500mL Bag) 500 ML 999 ML IV (04:04)
[2023-06-25 04:16] LABS: Anion Gap 9 (5-15); BUN 8 mg/dL (7-18); BUN/Creat Ratio 9.9 RATIO (10-20); Calcium,Total 8.3 mg/dL (8.5-10.1); Chloride 106 mmol/L (98-107); Creatinine, Serum 0.81 mg/dL (0.55-1.02); EST Glomerular Filtration Rate 74 mL/min (>60); Est Glom Filt Rate - Afr Amer 90 mL/min (>60); Estimated Creatinine Clearance 45.09 ml/min; Glucose 105 mg/dL (74-106); Potassium 3.3 mmol/L (3.5-5.1); Sodium Level 142 mmol/L (136-145)
[2023-06-25 04:18] LABS: Absolute Lymphocyte Count 2.39 X10^3/uL (0.83-4.51); Absolute Neutrophil Count 4.4 X10^3/uL (2.0-7.7); Basophil# 0.04 X10^3/uL; Basophil% 0.5 % (0-1); Eosinophil# 0.31 X10^3/uL; Eosinophils% 3.9 % (0-5); Hemoglobin 11.2 g/dL (12.0-15.0); Lymphocyte # 2.39 X10^3/ul (0.83-4.51); Lymphocyte % 30.1 % (19-41); Mean Corp Hgb Conc 30.3 g/dL (32-36); Mean Corpuscular Hgb 27.1 pg (27.0-32.0); Mean Corpuscular Volume 89.4 fL (81-99); Mean Platelet Vol. 9.7 fl (6.2-12.0); Monocyte# 0.75 X10^3/uL; Monocyte% 9.5 % (0-10); NRBC Flagged by Analyzer 0 % (0-5); Neutrophil # 4.41 X10^3/uL (2.7-7.7); Neutrophil % 55.6 % (47-70); Platelet Count 379 K/mm3 (150-450); RBC Distribution Width CV 13.8 % (11.6-14.6); RBC Distribution Width SD 45.3 fl (35.1-43.9); Red Blood Count 4.14 M/mm3 (4.2-5.4); White Blood Count 7.9 K/mm3 (4.4-11.0)
[2023-06-25] MEDS: Potassium Chloride Oral Tablet 20 MEQ PO (04:38)
[2023-06-25] MEDS: Potassium Chloride 10mEq/100mL 10 MEQ/100 ML IV.SOLN. 100 MEQ IV BOLUS (05:01)
[2023-06-25 06:04] VITALS: PULSE 89; RESP 16; TEMP 36.6; O2SAT 98
== END 2023-06-25 06:05 | disposition home or self-care (01) ==
PROVIDERS: Emergency Provider Emergency Medicine; PCP Student in an Organized Health Care Education/Training Program; Visit Provider Emergency Medicine
DX: R00.2 Palpitations (principal); E87.6 Hypokalemia; I10 Essential (primary) hypertension; R19.7 Diarrhea, unspecified; E78.5 Hyperlipidemia, unspecified; Z79.82 Long term (current) use of aspirin; Z79.899 Other long term (current) drug therapy
CPT/HCPCS: 80048; 85025; 93005; 96361; 96365; 99285; J7030

== ENCOUNTER → 2023-10-19 | Outpatient (CLI) | payer MEDICARE, SELFPAY ==
[2023-10-19 10:53] LABS: Free T3 2.3 pg/mL (2.18-3.98); T4 Free Direct 1.04 ng/dL (0.76-1.46); Thyroid Stim Hormone (TSH) 0.65 uIU/mL (0.358-3.74)
== END | disposition home or self-care (01) ==
PROVIDERS: PCP Student in an Organized Health Care Education/Training Program; Referring Provider Internal Medicine Endocrinology, Diabetes & Metabolism; Visit Provider Internal Medicine Endocrinology, Diabetes & Metabolism
DX: R00.2 Palpitations (principal); E05.20 Thyrotoxicosis with toxic multinodular goiter without thyrotoxic crisis or storm
CPT/HCPCS: 36415; 84439; 84443; 84481

== ENCOUNTER → 2023-12-13 | Outpatient (CLI) | payer MEDICARE, SELFPAY ==
--- NOTE | 2023-12-13 12:39 | US_ITS ---
STUDY: THYROID ULTRASOUND REASON FOR EXAM: Female, 73 years old. compare sizes TECHNIQUE: Ultrasound evaluation of the thyroid was performed with real-time and static walker-scale imaging. COMPARISON: 11/18/2021 FINDINGS: RIGHT LOBE: The right lobe of the thyroid gland measures 5.9 x 2.6 x 3.0 cm. There is a heterogeneous echotexture. Nodule 1: No change in the 10 x 7 x 8 mm mixed cystic and solid hypoechoic wider than tall ill-defined margin nodule with punctate echogenic foci (TR 4) in the mid right lobe and follow-up ultrasound is recommended in one year. Nodule 2: No change in the 11 x 6 x 8 mm solid hypoechoic wider than tall ill-defined margin nodule with no echogenic foci (TR 4) in the lateral right lobe and follow-up ultrasound is recommended in one year. LEFT LOBE: The left lobe of the thyroid gland measures 5.6 x 2.3 x 2.7 cm. There is a heterogeneous echotexture. Nodule 3: Enlarging (15 x 9 x 12 mm from 14 x 7 x 10 mm) mixed cystic and solid hypoechoic wider than tall smoothly marginated nodule with no echogenic foci (TR 3) in the medial left lobe near the isthmus and follow-up ultrasound is recommended in one year. Nodule 4: No change in the 13 x 13 x 13 mm solid hypoechoic wider than tall smoothly marginated nodule with no echogenic foci (TR 4) in the posterior left lobe and follow-up ultrasound is recommended in one year. ISTHMUS: The isthmus measures 3 mm thick. . The regional lymph nodes are normal. US/Thyroid IMPRESSION: No change in multiple nodules and follow-up ultrasound is recommended in one year. Electronically Signed: Koko Perdomo MD at 0:13 EDT ,
== END | disposition home or self-care (01) ==
LOC: US 12:38
PROVIDERS: PCP Student in an Organized Health Care Education/Training Program; Referring Provider Internal Medicine Endocrinology, Diabetes & Metabolism; Visit Provider Internal Medicine Endocrinology, Diabetes & Metabolism
DX: E05.20 Thyrotoxicosis with toxic multinodular goiter without thyrotoxic crisis or storm (principal)
CPT/HCPCS: 76536

== ENCOUNTER → 2024-01-31 | Outpatient (CLI) | payer MEDICARE, SELFPAY ==
[2024-01-31 11:33] LABS: Vitamin D,25 Hydroxy 28.9 ng/mL
[2024-01-31 11:44] LABS: ALB/GLOB Ratio 0.9 RATIO (0.9-2.4); AST(SGOT) 24 U/L (15-37); Alanine Aminotransfer ALT/SGPT 29 U/L (13-56); Albumin, Serum 3.5 g/dL (3.2-5.0); Alkaline Phosphatase 99 U/L (45-117); Anion Gap 2 (5-15); BUN 10 mg/dL (7-18); BUN/Creat Ratio 16.2 RATIO (10-20); Calcium,Total 9.2 mg/dL (8.5-10.1); Chloride 107 mmol/L (98-107); Creatinine, Serum 0.62 mg/dL (0.55-1.02); EST Glomerular Filtration Rate 100 mL/min (>60); Est Glom Filt Rate - Afr Amer 122 mL/min (>60); Free T3 2.5 pg/mL (2.18-3.98); Globulin 3.8 g/dL (2.2-4.2); Glucose 85 mg/dL (74-106); Potassium 4.7 mmol/L (3.5-5.1); Protein, Total 7.3 g/dL (6.4-8.2); Sodium Level 140 mmol/L (136-145); T4 Free Direct 0.78 ng/dL (0.76-1.46); Thyroid Stim Hormone (TSH) 0.49 uIU/mL (0.358-3.74)
== END | disposition home or self-care (01) ==
LOC: LAB 09:43
PROVIDERS: PCP Student in an Organized Health Care Education/Training Program; Referring Provider Internal Medicine Endocrinology, Diabetes & Metabolism; Visit Provider Internal Medicine Endocrinology, Diabetes & Metabolism
DX: R00.2 Palpitations (principal); E05.20 Thyrotoxicosis with toxic multinodular goiter without thyrotoxic crisis or storm; E55.9 Vitamin D deficiency, unspecified; M85.80 Other specified disorders of bone density and structure, unspecified site
CPT/HCPCS: 36415; 80053; 82306; 84439; 84443; 84481

== ENCOUNTER → 2024-05-10 | Outpatient (CLI) | payer MEDICARE, SELFPAY ==
[2024-05-10 10:05] LABS: T4 Free Direct 0.72 ng/dL (0.76-1.46)
== END | disposition home or self-care (01) ==
LOC: LAB 08:46
PROVIDERS: PCP Student in an Organized Health Care Education/Training Program; Referring Provider Internal Medicine Endocrinology, Diabetes & Metabolism; Visit Provider Internal Medicine Endocrinology, Diabetes & Metabolism
DX: E05.20 Thyrotoxicosis with toxic multinodular goiter without thyrotoxic crisis or storm (principal); R00.2 Palpitations
CPT/HCPCS: 36415; 84439

== ENCOUNTER → 2024-05-16 | Outpatient (CLI) | payer MEDICARE, SELFPAY ==
--- NOTE | 2024-05-16 08:20 | BI_ITS ---
MAMMOGRAPHY - BILATERAL SCREENING REASON FOR EXAM: Female, 73 years old. Routine annual screening examination. PERTINENT HISTORY: Aunt with breast cancer. History of prior right breast aspiration. TECHNIQUE: Digital bilateral breast josé luis (3D mammographic acquisition) in the CC and MLO projections. 2-D mediolateral oblique (MLO) and craniocaudad (CC) views of both breasts were obtained. CAD: Full Field Digital Mammography with Computer Added Detection was performed. COMPARISON: Comparison is made with prior examination dated May 12, 2023 and April 23, 2022. FINDINGS: Breast Composition: There are scattered areas of fibroglandular density. There are no dominant masses or suspicious calcifications. Stable bilateral small axillary lymph nodes. No other significant abnormalities are identified. There has been no significant change since the prior study. BI/SCRN MAMM (CAD)W/JOSÉ LUIS BILAT IMPRESSION: Stable bilateral screening mammogram. Yearly follow-up mammogram recommended. (A) ASSESSMENT CATEGORY: BIRADS Category 2: Benign. A letter regarding these results will be sent to the patient by the facility within 30 days. Approximately 10% of breast cancers are not detected by mammography. A normal mammogram should not delay biopsy of a clinically suspicious abnormality. [id number] Electronically Signed: Niko Gama MD at 10:29 EDT ,
== END | disposition home or self-care (01) ==
LOC: OPBI 08:18
PROVIDERS: PCP Student in an Organized Health Care Education/Training Program; Referring Provider Student in an Organized Health Care Education/Training Program; Visit Provider Student in an Organized Health Care Education/Training Program
DX: Z12.31 Encounter for screening mammogram for malignant neoplasm of breast (principal)
CPT/HCPCS: 77063; 77067

== ENCOUNTER → 2024-08-02 | Outpatient (CLI) | payer MEDICARE, SELFPAY ==
--- NOTE | 2024-08-02 08:02 | BD_ITS ---
STUDY: DUAL ENERGY X-RAY ABSORPTIOMETRY / DXA REASON FOR EXAM: Female, 73 years old. Compare 2021 TECHNIQUE: Bone Mineral Density (BMD) measurements of lumbar spine and right hip were obtained. COMPARISON: Comparison is made with prior study June 23, 2022. FINDINGS: Lumbar Spine (L1-L4): g/cm2 (0.905) / T-score (-1.3) / Z-score (1.0) Findings are suggestive of osteopenia with a low fracture risk. Right Femur Total: g/cm2 (0.671) / T-score (-2.2) / Z-score (-0.5) Right Femoral Neck: g/cm2 (0.693) / T-score (-1.4) / Z-score (0.6) The T-Scores on the most recent prior examination were: Lumbar Spine (L1-L4): There has been improvement of bone density since the previous examination. Right Femur Total: which represents a worsening of 4.5%. BD/Dexa Bone Density Study IMPRESSION: The patient is considered osteopenic as outlined below according to World Lex Organization (WHO) criteria with a moderate fracture risk. There has been worsening of bone density since the previous examination. Reference Information: The T-score is the number of standard deviations above or below the standard which is normal for young adults at their peak bone mineral density. The World Health Organization (WHO) interprets the T-scores as follows: Above -1 Normal bone density Between -1 and -2.5 Osteopenia Equal to / or below -2.5 Osteoporosis As a practical clinical guideline, osteopenia may be graded as follows: Mild -1 through -1.5 Moderate -1.6 through -2.0 Severe -2.1 through -2.4 The Z-score is the number of standard deviations above or below age-matched controls. A Z-score of less than -1.5 would be considered abnormal. References: 1. NIH Osteoporosis and Related Bone Diseases www osteo.org 2. International Society for Clinical Densitometry www iscd.org 3. National Osteoporosis Foundation www nof.org Electronically Signed: Niko Gama MD at 9:28 EST ,
== END | disposition home or self-care (01) ==
PROVIDERS: PCP Student in an Organized Health Care Education/Training Program; Referring Provider Internal Medicine Endocrinology, Diabetes & Metabolism; Visit Provider Internal Medicine Endocrinology, Diabetes & Metabolism
DX: M81.0 Age-related osteoporosis without current pathological fracture (principal); M85.80 Other specified disorders of bone density and structure, unspecified site; E05.20 Thyrotoxicosis with toxic multinodular goiter without thyrotoxic crisis or storm; I10 Essential (primary) hypertension
CPT/HCPCS: 77080

== ENCOUNTER → 2024-09-13 | Outpatient (CLI) | payer MEDICARE, SELFPAY ==
[2024-09-13 09:56] LABS: Free T3 2.8 pg/mL (2.18-3.98); T4 Free Direct 0.85 ng/dL (0.76-1.46); Thyroid Stim Hormone (TSH) 0.833 uIU/mL (0.358-3.740)
== END | disposition home or self-care (01) ==
LOC: LAB 08:36
PROVIDERS: PCP Student in an Organized Health Care Education/Training Program; Referring Provider Internal Medicine Endocrinology, Diabetes & Metabolism; Visit Provider Internal Medicine Endocrinology, Diabetes & Metabolism
DX: I10 Essential (primary) hypertension (principal); E05.20 Thyrotoxicosis with toxic multinodular goiter without thyrotoxic crisis or storm; M85.80 Other specified disorders of bone density and structure, unspecified site
CPT/HCPCS: 36415; 84439; 84443; 84481

== ENCOUNTER → 2024-12-10 | Outpatient (CLI) | payer MEDICARE, SELFPAY ==
[2024-12-10 16:24] LABS: Free T3 2.7 pg/mL (2.18-3.98); Thyroid Stim Hormone (TSH) 0.528 uIU/mL (0.300-4.200); Vitamin D,25 Hydroxy 25.1 ng/mL (30-100)
[2024-12-10 16:30] LABS: ALB/GLOB Ratio 1.4 RATIO (0.9-2.4); AST(SGOT) 24 U/L (<=31); Alanine Aminotransfer ALT/SGPT 18 U/L (<=34); Albumin, Serum 4.1 g/dL (3.4-4.8); Alkaline Phosphatase 108 U/L (35-104); Anion Gap 10 (5-15); BUN 13 mg/dL (4-19); BUN/Creat Ratio 19.3 RATIO (10-20); Calcium,Total 9.7 mg/dL (7.6-11.0); Chloride 104 mmol/L (98-108); Creatinine, Serum 0.68 mg/dL (0.70-1.20); EST Glomerular Filtration Rate 91 (>60); Globulin 2.9 g/dL (2.2-4.2); Glucose 93 mg/dL (70-99); Potassium 4.3 mmol/L (3.3-5.1); Sodium Level 141 mmol/L (133-145); Total Bilirubin < 0.15 mg/dL (0.00-1.30)
== END | disposition home or self-care (01) ==
LOC: BIMLAB 14:13
PROVIDERS: PCP Student in an Organized Health Care Education/Training Program; Referring Provider Internal Medicine Endocrinology, Diabetes & Metabolism; Visit Provider Internal Medicine Endocrinology, Diabetes & Metabolism
DX: E05.20 Thyrotoxicosis with toxic multinodular goiter without thyrotoxic crisis or storm (principal); M85.80 Other specified disorders of bone density and structure, unspecified site; E55.9 Vitamin D deficiency, unspecified; E03.9 Hypothyroidism, unspecified
CPT/HCPCS: 36415; 80053; 82306; 84439; 84443; 84481

== ENCOUNTER → 2025-01-23 | Outpatient (CLI) | payer MEDICARE, SELFPAY ==
--- NOTE | 2025-01-23 10:48 | VDLE_ITS ---
Reason For Study Reason For Study: Bilateral leg edema RIGHT LEFT GSV is normal. GSV is normal. CFV is compressible, spontaneous, phasic, competent CFV is compressible, spontaneous, phasic, competent, and demonstrates normal augmentation. and demonstrates normal augmentation. FV is compressible, spontaneous, phasic, competent FV is compressible, spontaneous, phasic, competent and demonstrates normal augmentation. and demonstrates normal augmentation. POP V is compressible, spontaneous, phasic, competent POP V is compressible, spontaneous, phasic, competent and demonstrates normal augmentation. and demonstrates normal augmentation. T/P Trunk is compressible. T/P Trunk is compressible. PTV is compressible. PTV is compressible. RT PerV is compressible. LT PerV is compressible. Procedure This is a venous duplex using B-mode, color flow and spectral Doppler. Exam performed in department. A preliminary report was called and/or faxed to Dr. Morris. VL/Venous Duplex US - [place] Extrem Interpretation Summary Deep veins of the lower extremities are bilaterally patent and compressible seg mentally. There is no evidence of deep vein thrombosis on either side. Valvular competence appears intact within the p roximal deep venous systems bilaterally. The great saphenous veins appear bilaterally patent and compressible segmentall y. Ordering Physician: Yaakov Morris Referring Physician: Yaakov Morris Performed By: Deanne Milian RVT
== END | disposition home or self-care (01) ==
PROVIDERS: PCP Student in an Organized Health Care Education/Training Program; Referring Provider Student in an Organized Health Care Education/Training Program; Visit Provider Student in an Organized Health Care Education/Training Program
DX: R60.0 Localized edema (principal)
CPT/HCPCS: 93970

== ENCOUNTER 2025-03-21 12:30 | Outpatient (RCR) | payer MEDICARE, SELFPAY ==
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
--- NOTE | 2025-04-30 11:26 | HP.PT.NRP ---
Patient Information Patient Information: LEXUS CONTRERAS was seen in my office for initial evaluation on 03/06/25. The following Plan of Care was established for this patient: POC Established Initial Frequency: 1x/Week Initial Duration: 2 Weeks Anticipated Interventions Patient/Client Instruction: Educate patient on: Condition and Plan of Care For the Purpose of:: To improve self management Therapeutic Exercise to Include: Strength training, Endurance training, Active ROM and Dynamic Lumbar Stabilization For the Purpose of:: To decrease pain, To improve muscle performance and motor function and To increase tolerance to activity/condition/position Last Seen Last Seen: This patient was last seen in our office . Pertinent comments regarding their Physical therapy will appear below: Pt phoned the clinic to report she is doing well and doesnt need any further PT. At this point I will be discontinuing this patient from physical therapy. I would be happy to see this patient again in the future if found appropriate by the physician. Thank you! Imtiaz Hammond, PT, ATC Balance/Gait/Functional tests Balance/Special Test Scores Lower Extremity Functional Score: 48
== END 2025-03-21 19:00 | disposition home or self-care (01) ==
LOC: PT 12:30
PROVIDERS: PCP Student in an Organized Health Care Education/Training Program; Referring Provider Student in an Organized Health Care Education/Training Program; Visit Provider Student in an Organized Health Care Education/Training Program
DX: M25.551 Pain in right hip (principal); M16.11 Unilateral primary osteoarthritis, right hip
CPT/HCPCS: 97110; 97161

== ENCOUNTER → 2025-04-09 | Outpatient (CLI) | payer MEDICARE, SELFPAY ==
[2025-04-09 10:06] LABS: Free T3 2.6 pg/mL (2.18-3.98)
== END | disposition home or self-care (01) ==
LOC: LAB 08:53
PROVIDERS: PCP Student in an Organized Health Care Education/Training Program; Referring Provider Nurse Practitioner Family; Visit Provider Nurse Practitioner Family
DX: E05.90 Thyrotoxicosis, unspecified without thyrotoxic crisis or storm (principal)
CPT/HCPCS: 36415; 84439; 84443; 84481

== ENCOUNTER → 2025-05-24 | Outpatient (CLI) | payer MEDICARE, SELFPAY ==
--- NOTE | 2025-05-24 09:47 | BI_ITS ---
EXAM: BI/SCRN MAMM (CAD)W/JOSÉ LUIS BILAT
== END | disposition home or self-care (01) ==
LOC: OPBI 09:45
PROVIDERS: PCP Student in an Organized Health Care Education/Training Program; Referring Provider Student in an Organized Health Care Education/Training Program; Visit Provider Student in an Organized Health Care Education/Training Program
DX: Z12.31 Encounter for screening mammogram for malignant neoplasm of breast (principal)
CPT/HCPCS: 77063; 77067

== ENCOUNTER → 2025-06-12 | Outpatient (CLI) | payer MEDICARE, SELFPAY ==
--- NOTE | 2025-06-12 12:37 | US_ITS ---
PROCEDURE: THYROID 06/12/2025 REASON FOR EXAM: COMPARE SIZE OF NODULES TECHNIQUE: Procedure Code: USTHY Modality: US Procedure: THYROID COMPARISON: November 2023 and extending back to August 2019 FINDINGS: Right thyroid lobe size: 6.6 x 2.7 x 2.7 cm Left thyroid lobe size: 6.4 x 2.7 x 2.6 cm Isthmus: 0.4 cm Background parenchymal echotexture is homogeneous. Nodules: Initially for right-sided nodules in 2 left-sided nodules were evaluated. Only the 4 most concerning nodules will be reported. 1 recorded as right nodule 2.. Lobe: Right, Location: Mid, Size: 1.0 x 0.9 x 0.8 cm, Stability: Stable Composition: Mixed cystic and solid (+1) Echogenicity: Hypoechoic (+2) Margin: Smooth (+0) Shape: Echogenic Foci: None (+0) TI-RADS: 3 2 recorded as nodule 3.. Lobe: Right, Location: Mid lateral, Size: 1.3 x 0.9 x 0.6 cm, Stability: Stable Composition: Solid or almost completely solid (+2) Echogenicity: Hypoechoic (+2) Margin: Smooth (+0) Shape: Wider than tall (+0) Echogenic Foci: None (+0) TI-RADS: 4 3 recorded as left nodule 1.. Lobe: Left, Location: Mid, Size: 1.2 x 1.1 x 0.8 cm, Stability: Stable Composition: Solid or almost completely solid (+2) Echogenicity: Hypoechoic (+2) Margin: Smooth (+0) Shape: Wider than tall (+0) Echogenic Foci: None (+0) TI-RADS: 4 4 recorded as left nodule 2.. Lobe: Left, Location: , Size: 1.2 x 1.3 x 1.4 cm, Stability: Stable Composition: Solid or almost completely solid (+2) Echogenicity: Hypoechoic (+2) Margin: Shape: Taller than wide (+3) Echogenic Foci: None (+0) TI-RADS: 5 US/Thyroid IMPRESSION: Multiple bilateral thyroid nodules all stable. Nodule 4 recorded as left nodule 2. Is TI rads 5 and therefore if not previous ly performed fine-needle aspiration recommended. Other nodules or now stable for 5 years and require no further evaluation. RECOMMENDATION: TR 1 benign (0 points): No fine-needle aspirate or ultrasound follow-up require d. TR 2 not suspicious (1-2 points): No fine-needle aspirate or ultrasound follow up required. TR 3 mildly suspicious (3 points): 1.5 centimeter or greater requires ultrasoun d follow up at 1, 3 and 5 years. 2.5 centimeters or greater requires fine-needle aspirate. TR 4: Moderately suspicious (4-6 points): 1 centimeter greater requires ultraso und follow-up in 1, 2, 3 and 5 years. 1.5 centimeters or greater requires fine-needle aspirate. TR 5 highly suspicious (greater than or equal to 7 points,): 0.5 centimeters or greater requires annual follow up up to 5 years. 1.0 centimeters or greater requires fine-needle aspirate. Fine-needle aspirate no more than 2 nodules. Biopsy up to two highest TI-RADS s cores. Follow-up no more than 4 nodules with highest TI-RADS points score. Based on most suspicious nodule. Nodule size = largest diameter Only evaluate nodule if =>5 mm. Growth > 20% in 2 dimensions = worsening. Reading Location: [place] [id number]
--- OUTSIDE RECORDS SUMMARY | 2025-06-12 14:16 | XMS RPT_ITS | CCD ---
Author Organization [facility] Care Team Providers Care Business Analytics Manager Name Role Phone DR YAAKOV MORRIS DO Primary Care Physician [phone] Dr. Yaakov Morris Primary Care Provider 1([facility])2014 Dr. Yaakov Morris Referring Provider 1([facility]) Dr. Bruce Castro Attending Provider 1([facility])[phone] Yaakov Morris Primary Care Provider 1([facility])2014 Dr. Yaakov Morris Referring Provider 1([facility]) 5 [place], Dr. Bull Attending Provider 1([facility])- 700 [place], Dr. Bull Referring Provider 1([facility])- [address] [place], Dr. Bull Other Provider RANDAL Osman NP Attending Provider Dr. Yaakov Morris Primary Care Provider 1([facility])2014 Dr. Yaakov Morris Referring Provider 1([facility])- 5 [place], Dr. Bull Attending Provider 1([facility])- [address] [place], Dr. Bull Referring Provider 1([facility])- [address] [place], Dr. Bull Other Provider RANDAL Osman NP Attending Provider Dr. Bruce Castro Attending Provider 1([facility])[phone] LAWRENCE INMAN, DR OLIVER Attending Unavailable ROMAR DO, DR OLIVER Primary Care Unavailable ROMAR , DR OLIVER Attending Unavailable ROMAR DO, DR OLIVER Primary Care Unavailable ROMAR DO, DR OLIVER Attending Unavailable ROMAR DO, DR OLIVER Primary Care Unavailable ROMAR DO, DR OLIVER Attending Unavailable ROMAR DO, DR OLIVER Primary Care Unavailable ROMAR DO, DR OLIVER Attending Unavailable ROMAR DO, DR OLIVER Primary Care Unavailable MAST STOCK ASSOCIATE-CONTENT PRODUCTION SPECIALIST, YUMIKO Attending Unavailabl e ROMAR DO, DR OLIVER Primary Care Unavailable MAST STOCK ASSOCIATE-CONTENT PRODUCTION SPECIALIST, YUMIKO Attending Unavailabl e ROMAR DO, DR OLIVER Primary Care Unavailable TREV DO, DR MCLEOD Attending Unavailable ROMAR DO, DR OLIVER Primary Care Unavailable MAST STOCK ASSOCIATE-CONTENT PRODUCTION SPECIALIST, YUMIKO Attending Unavailabl e ROMAR DO, DR OLIVER Primary Care Unavailable ROMAR DO, DR OLIVER Attending Unavailable ROMAR DO, DR OLIVER Primary Care Unavailable ROMAR DO, DR OLIVER Attending Unavailable ROMAR DO, DR OLIVER Primary Care Unavailable ROMAR DO, DR OLIVER Attending Unavailable ROMAR DO, DR OLIVER Primary Care Unavailable Romar DO, Dr. Oliver Primary Care Provider [phone] King AYUSH, Dr. Barrera Attending Provider King AYUSH, Dr. Barrera Referring Provider [phone] Lawrence DO, Dr. Oliver Referring Provider [phone] [place] PEACOCK, Dr. Bull Attending Provider Romar DO, Dr. Oliver Primary Care Provider [phone] King AYUSH, Dr. Barrera Attending Provider King AYUSH, Dr. Barrera Referring Provider Romar DO, Dr. Oliver Attending Provider [phone] Lawrence INMAN, Dr. Oliver Primary Care Physician Lawrence INMAN, Dr. Oliver Attending Physician [phone] Romirma DO, Dr. Oliver Referring Provider [phone] Gideon PEACOCK, Dr. Tony Martinez Attending Physician David RESIDENTIAL SALES REPRESENTATIVE-CMegan Attending Physician David RESIDENTIAL SALES REPRESENTATIVE-CMegan Referring Provider YAAKOV MORRIS Primary Care Unavailable YAAKOV MORRIS Attending Unavailable YAAKOV MORRIS Attending Unavailable YAAKOV MORRIS Primary Care Unavailable YAAKOV MORRIS Primary Care Unavailable YAAKOV MORRIS Attending Unavailable YAAKOV MORRIS Primary Care Unavailable YAAKOV MORRIS Attending Unavailable Matthew, Bruce Referring Unavailable Romar, Yaakov Primary Care Unavailable Matthew, Bruce Attending Unavailable Romar, Yaakov Attending Unavailable Romar, Yaakov Referring Unavailable Romar, Yaakov Primary Care Unavailable David, Attending Unavailable David, Referring Unavailable Romar, Yaakov Primary Care Unavailable Romar, Yaakov Attending Unavailable Romar, Yaakov Referring Unavailable Romar, Yaakov Primary Care Unavailable Romar, Yaakov Primary Care Unavailable Romar, Yaakov Attending Unavailable Romar, Yaakov Referring Unavailable Romar, Yaakov Primary Care Unavailable Matthew, Bruce Referring Unavailable Matthew, Bruce Attending Unavailable Romar, Yaakov Primary Care Unavailable Matthew, Bruce Attending Unavailable Romar, Yaakov Referring Unavailable Romar, Yaakov Primary Care Unavailable Franklin, Jorgito Attending Unavailable Romar, Yaakov Referring Unavailable Romar, Yaakov Primary Care Unavailable Franklin, Jorgito Attending Unavailable Romar, Yaakov Referring Unavailable Romar, Yaakov Primary Care Unavailable Franklin, Jorgito Attending Unavailable Romar, Yaakov Referring Unavailable Matthew, Bruce Attending Unavailable Romar, Yaakov Primary Care Unavailable Romar, Yaakov Referring Unavailable Matthew, Bruce Referring Unavailable Romar, Yaakov Primary Care Unavailable Matthew, Bruce Attending Unavailable Allergies Allergy Classification Reported Allergen(s) Allergy Type Date of Onset Reaction(s) Facility (20 sources) Loratadine; Translations: [loratadine] Drug Allergy 3 Visual disturbance (disorder) [facility] (20 sources) Minocycline; Translations: [minocycline] Drug Allergy 0 Unknown [facility] (13 sources) Streptococcus pneumoniae serotype 1 capsular antigen diphtheria [id number] protein conjugate vaccine / Streptococcus pneumoniae serotype 14 capsular antigen diphtheria [id number] protein conjugate vaccine / Streptococcus pneumoniae serotype 18C capsular antigen diphtheria [id number] protein conjugate vaccine / Streptococcus pneumoniae serotype 19A capsular antigen diphtheria HYD496 protein conjugate vaccine / Streptococcus pneumoniae serotype 19F capsular antigen diphtheria [id number] protein conjugate vaccine / Streptococcus pneumoniae serotype 23F capsular antigen diphtheria JMC104 protein conjugate vaccine / Streptococcus pneumoniae serotype 3 capsular antigen diphtheria [id number] protein conjugate vaccine / Streptococcus pneumoniae serotype 4 capsular antigen diphtheria ESZ171 protein conjugate vaccine / Streptococcus pneumoniae serotype 5 capsular antigen diphtheria BCV242 protein conjugate vaccine / Streptococcus pneumoniae serotype 6A capsular antigen diphtheria YQN388 protein conjugate vaccine / Streptococcus pneumoniae serotype 6B capsular antigen diphtheria [id number] protein conjugate vaccine / Streptococcus pneumoniae serotype 7F capsular antigen diphtheria RCF562 protein conjugate vaccine / Streptococcus pneumoniae serotype 9V capsular antigen diphtheria KRY009 protein conjugate vaccine; Translations: [pneumococcal 13-valent vaccine] Drug Allergy Nausea (finding), Fever (finding) [facility] (12 sources) Chlorhexidine Drug Allergy 0 Hives [facility] (12 sources) Pneumococcal vaccine Drug Allergy 0 unknown [facility] (11 sources) FLUoxetine; Translations: [fluoxetine] Drug Allergy Insomnia (disorder) [facility] (4 sources) Doxycycline Drug Allergy 5 Lightheadedness , near syncope [facility] (1 source) Chlorhexidine Drug Allergy 5 [facility] (1 source) Doxycycline Drug Allergy 5 [facility] (1 source) Loratadine Drug Allergy 5 [facility] (1 source) Minocycline Drug Allergy 5 [facility] (1 source) Pneumococcal vaccine Drug Allergy 5 [facility] Medications Current Medications Medication Drug Class(es) Dates Sig (Normalized) Sig (Original) acetaminophen 325 mg oral tablet (20 sources) Start: 06-06-2023 take 1 tablet by mouth every six hours as needed for pain Start: 12-08-2022 Tylenol Oral, 0 Refill(s) Start Date: 12/08/22 Status: Ordered Medication Dispense Status: Completed Total Allowed Fills: 1 Fills Dispensed: 0 Start: 12-08-2022 Tylenol Oral, 0 Refill(s) Start Date: 12/08/22 Status: Ordered Repeat number: 1 Start: 12-08-2022 Tylenol Oral, 0 Refill(s) Start Date: 12/08/22 Status: Ordered aspirin 81 mg delayed release oral tablet (20 sources) Platelet Aggregation Inhibitor, Nonsteroidal Anti-inflammatory Drug Start: 06-11-2013 aspirin 81 mg oral delayed release tablet Dose : 81 mg = 1 tab(s), Oral, qDay, 0 Refill(s) Start Date: 09/05/19 Status: Ordered Medication Dispense Status: Completed Total Allowed Fills: 1 Fills Dispensed: 0 calcium carbonate 1500 mg / cholecalciferol 800 unt oral tablet (20 sources) Vitamin D Start: 03-09-2023 Start: 03-09-2023 take 1 tablet by david th once daily Calcium Carbonate-Vitamin D3 Active 1 TABLET PO DAILY March 09, 2023 10:05am Start: 03-03-2023 End: 03-09-2023 take 1 tablet by mouth twice daily Calcium Carbonate-Vitamin D3 Discontinued 1 TABLET PO TWICE A DAY March 03, 2023 3:04pm March 09, 2023 10:06am Start: 09-05-2019 End: 03-09-2023 Calcium Carbonate-Vitamin D3 600 mg-20 mcg (800 unit) tablet Discontinued 1 {tbl} PO TWICE A DAY March 03, 2023 3:04pm March 09, 2023 10:06am Start: 06-11-2013 take 1 tablet by david th once daily Calcium Carbonate-Vitamin D3 Active 1 TABLET PO DAILY@799June 11, 2013 2:58pm Start: 06-11-2013 End: 03-03-2023 Calcium Carbonate-Vitamin D3 1 TAB tablet Discontinued 1 {tbl} PO DAILY@799June 11, 2013 1:00am March 03, 2023 3:05pm Start: 06-11-2013 End: 03-03-2023 take 1 tablet by mouth once daily Calcium Carbonate-Vitamin D3 Discontinued 1 TABLET PO DAILY@799June 11, 2013 1:00am March 03, 2023 3:05pm DME MISCellaneous (2 sources) Start: 12-08-2022 DME MISCellaneous See Instructions, BP cuff and machine, Dx: I10, # 1 EA, 0 Refill(s), Pharmacy: [facility]/pharmacy #[id number], 154, cm, 12/08/22 14:33:00 EDT, Height, 68.2 Start Date: 12/08/22 Status: Ordered ibuprofen 200 mg oral capsule (3 sources) Nonsteroidal Anti-inflammatory Drug Start: 09-05-2019 take 1 mg by mouth every six hours ibuprofen 200 mg oral capsule mg = cap(s), Oral, q6hr, 0 Refill(s) Start Date: 09/05/19 Status: Ordered lisinopril 5 mg oral tablet (20 sources) Angiotensin Converting Enzyme Inhibitor Start: 11-22-2024 lisinopril 5 mg oral tablet Dose : 5 mg = 1 tab(s), Oral, Daily, 0 Refill(s) Start Date: 01/11/25 Status: Ordered Medication Dispense Status: Completed Total Allowed Fills: 1 Fills Dispensed: 0 Start: 10-20-2022 End: 11-22-2024 take 1 tablet by mouth once daily Lisinopril 10 mg tablet Discontinued 10 mg PO DAILY February 10, 2023 12:00am November 22, 2024 4:47pm methIMAzole 5 mg oral tablet (20 sources) Thyroid Hormone Synthesis Inhibitor Start: 01-11-2025 methIMAzole 5 mg ora l tablet See Instructions, 0 Refill(s) Start Date: 01/11/25 Status: Ordered Medication Dispense Status: Completed Total Allowed Fills: 1 Fills Dispensed: 0 Start: 06-04-2024 End: 06-04-2024 Methimazole 5 mg tablet Disc ontinued 5 mg PO .Tue,Tue,Tue only June 04, 2024 10:59am June 04, 2024 11:08am Start: 12-05-2023 End: 12-05-2023 Methimazole 5 mg tablet Disc ontinued 5 mg PO .Tue,Tue,Tue only December 05, 2023 9:55am December 05, 2023 10:04am Start: 03-25-2023 methIMAzole 5 mg oral tablet 1/2 tab, Tue/Tue/Tue, 0 Refill(s) Start Date: 03/25/23 Status: Ordered Start: 03-15-2023 End: 06-04-2024 Methimazole 5 mg tablet Disc ontinued 2.5 mg PO .Tue,Tue,Tue only 11 12December 05, 2023 10:04am June 04, 2024 11:01am Start: 03-15-2023 End: 06-06-2023 Methimazole Active 2.5 MG PO .Tue,Tue,Tue only June 06, 2023 11:39am metoprolol tartrate 100 mg oral tablet (20 sources) beta-Adrenergic [place] Start: 11-22-2024 Metopr olol Tartrate 100 mg oral tablet Dose : 100 mg = 1 tab(s), BID, 0 Refill(s) Start Date: 01/11/25 Status: Ordered Medication Dispense Status: Completed Total Allowed Fills: 1 Fills Dispensed: 0 Start: 07-06-2024 End: 11-22-2024 Metoprolol Tartrate 50 mg ta blet Discontinued 75 mg PO TWICE A DAY 270 3 July 06, 2024 4:32pm November 22, 2024 4:47pm Start: 03-09-2023 End: 07-06-2024 take 1 tablet by mouth twice daily Metoprolol Tartrate 50 mg tablet Discontinued 50 mg PO TWICE A DAY 180 June 07, 2023 3:14pm July 06, 2024 4:32pm Start: 02-25-2023 End: 03-09-2023 take 1 tablet by mouth twice daily Metoprolol Tartrate 25 mg tablet Discontinued 25 mg PO TWICE A DAY 60 0 February 25, 2023 12:00am March 09, 2023 10:42am Jifhztob-Gge-Ar-Lycopen-Lute in (13 sources) Start: 03-09-2023 take 1 tablet by mouth once daily Tklhfzgg-For-Yx-Lycopen-Lutein Active 1 TABLET PO DAILY March 09, 2023 9:05am Start: 03-09-2023 take 1 tablet by david th once daily Xhgxnhmq-Ojh-Xu-Lycopen-Lutein Active 1 TABLET PO DAILY March 09, 2023 10:05am Start: 06-11-2013 Pgrdvwqy-Mop-I p-Aulsouj-Iftpde Active 1 EACH PO June 11, 2013 2:58pm Start: 06-11-2013 End: 03-09-2023 Dcriyvgu-Xlc-Tm-Lycopen-Lute in Discontinued 1 EACH PO DAILY June 11, 2013 12:00am March 09, 2023 9:06am Start: 06-11-2013 End: 03-09-2023 Bcypuxlq-Aoa-Ap-Lycopen-Lute in Discontinued 1 EACH PO DAILY June 11, 2013 1:00am March 09, 2023 10:06am Start: 06-11-2013 Qwebrkrh-Tnx-I c-Ptnzokv-Fanoan Active 1 EACH PO DAILY June 11, 2013 1:00am Start: 06-11-2013 Upzakuaf-Yyn-I l-Mlbrimg-Zzxjie Active 1 EACH PO June 11, 2013 12:00am Ygahfcvq-Cul-Ga-Lycopen-Lute in 0.4 mg-300 mcg- 250 mcg tablet (4 sources) Start: 03-09-2023 Start: 03-09-2023 Vkaatisn-Mts-V j-Nenvqfv-Prpeft 0.4 mg-300 mcg- 250 mcg tablet Active 1 {tbl} PO DAILY March 09, 2023 10:05am Multivitamin preparation (17 sources) Start: 01-21-2021 take 1 tablet by mouth once daily Multivitamin Dose = 1 tab(s), Oral, Daily, 0 Refill(s) Start Date: 01/21/21 Status: Ordered Medication Dispense Status: Completed Total Allowed Fills: 1 Fills Dispensed: 0 Start: 01-21-2021 take 1 tablet by david th once daily Multivitamin Dose = 1 tab(s), Oral, Daily, 0 Refill(s) Start Date: 01/21/21 Status: Ordered Repeat number: 1 Start: 01-21-2021 take 1 tablet by david th once daily Multivitamin Dose = 1 tab(s), Oral, Daily, 0 Refill(s) Start Date: 01/21/21 Status: Ordered sertraline 25 mg oral tablet (17 sources) Serotonin Reuptake Inhibitor Start: 06-24-2025 End: 12-21-2025 sertraline 25 mg oral tablet Dose : 25 mg = 1 tab(s), Oral, qDay, # 90 tab(s), 1 Refill(s), Pharmacy: [facility]/pharmacy #[id number], 154, cm, 05/07/25 9:46:00 EDT, Height, kg, 05/07/25 9:46:00 EDT, Dosing Weight Start Date: 06/24/25 Stop Date: 12/21/25 Status: Ordered Medication Dispense Status: Completed Quantity: 90.0 Unit: tab(s) Total Allowed Fills: 2 Fills Dispensed: 0 Start: 04-22-2023 End: 04-03-2025 take 1 tablet by mouth once daily Completed/Discontinued Medications Medication Drug Class(es) Dates Sig (Normalized) Sig (Original) acetaminophen 325 mg / oxyCODONE hydrochloride 5 mg oral tablet (12 sources) Opioid Agonist Start: 06-19-2013 End: 02-10-2023 Oxycodone-Acetamino phen 1 TABLET tablet Discontinued 1 {tbl} PO EVERY 4 HOURS NEEDED as needed for Pain 30 0 June 19, 2013 1:00am February 10, 2023 4:43am Start: 06-19-2013 End: 02-10-2023 take 1 tablet by mouth every four hours as needed Oxycodone-Acetaminophen Discontinued 1 TABLET PO EVERY 4 HOURS NEEDED June 19, 2013 1:00am February 10, 2023 4:43am atropine sulfate 0.025 mg / diphenoxylate hydrochloride 2.5 mg oral tablet (6 sources) Anticholinergic, Cholinergic Muscarinic Antagonist, Antidiarrheal Start: 06-25-2023 End: 12-05-2023 take 8 tablets by mouth every six hours as needed for diarrhea Diphenoxylate-Atropine (Lomotil) 2.5-0.025 mg tablet Discontinued 1 {tbl} PO EVERY 6 HOURS NEEDED as needed for diarrhea 12 0 June 25, 2023 5:41am December 05, 2023 9:55am max 8 tabs/day estradiol 0.01 mg vaginal insert (12 sources) Estrogen Start: 06-11-2013 End: 02-10-2023 Estradiol 10 MCG tablet Discontinued 10 ug VG June 11, 2013 1:00am February 10, 2023 4:43am Start: 06-11-2013 End: 02-10-2023 Estradiol Discontinued 10 MC G VG June 11, 2013 1:00am February 10, 2023 4:43am ferrous sulfate 325 mg oral tablet (20 sources) Start: 02-04-2023 End: 12-05-2023 Ferrous Sulfate 325 mg (65 mg iron) tablet Discontinued 325 mg PO .[facility] March 09, 2023 10:05am December 05, 2023 9:55am ibandronic acid 150 mg oral tablet (12 sources) Bisphosphonate Start: 06-11-2013 End: 12-07-2019 take 1 tablet by mouth every 30 days Ibandronate 150 MG tablet Discontinued 150 mg PO Q30D June 11, 2013 1:00am December 07, 2019 8:45am melatonin 10 mg oral tablet (14 sources) Start: 06-06-2023 End: 06-04-2024 take 1 tablet by mouth at bedtime Melatonin 10 mg tablet Discontinued 10 mg PO BEDTIME June 06, 2023 1:00am June 04, 2024 11:00am Start: 03-25-2023 take 1 dose by mouth once daily at bedtime melatonin Dose : 10 mg =, Oral, qHS, 0 Refill(s) Start Date: 03/25/23 Status: Ordered Start: 03-25-2023 melatonin 0 Re fill(s) Start Date: 03/25/23 Status: Ordered Akcjwqlp-Hly-Co-Lycopen-Lute in 1 EACH tablet (4 sources) Start: 06-11-2013 End: 03-09-2023 Utxhoymm-Sby-Mi-Lycopen-Lute in 1 EACH tablet Discontinued 1 NMA PO DAILY June 11, 2013 1:00am March 09, 2023 10:06am Problems Active Problems Problem Classification Problem Date Documented Da te Episodic/Chronic Anxiety disorders (14 sources) Anxiety; Translations: [Generalized anxiety disorder] Onset: 4 03-25-2023 Chronic Cardiac dysrhythmias (10 sources) Supraventricular tachycardia; Translations: [Supraventricular tachycardia] 02-10-2023 Chronic Deficiency and other anemia (2 sources) Normocytic anemia 01-31-2023 Episodic Deficiency and other anemia (11 sources) Anemia; Translations: [Anemia, unspecified] Episodic Deficiency and other anemia (13 sources) Iron deficiency anemia; Translations: [Iron deficiency anemia, unspecified] Episodic Deficiency and other anemia (2 sources) Iron deficiency anemia, unspecified; Translations: [Iron deficiency anemia, unspecified] Onset: Episodic Disorders of lipid metabolism (20 sources) Mixed hyperlipidemia; Translations: [Mixed hyperlipidemia] Chronic Comment on above: 12/14 ascvd risk 17.7 % 04/16 ascvd risk 15.3 % 05/17 ASCVD risk 16. 5% Essential hypertension (20 sources) Hypertensive disorder; Translations: [Essential hypertension] Onset: 3 10-20-2022 Chronic Fluid and electrolyte disorders (13 sources) Acute hypokalemia; Translations: [Hypokalemia] Onset: 3 06-25-2023 Episodic Heart valve disorders (20 sources) Mitral valve disorder; Translations: [Mitral valve prolapse] Onset: 5 08-24-2019 Chronic Lymphadenitis (20 sources) Axillary lymphadenopathy; Translations: [Inguinal lymphadenopathy] 09-24-2019 Episodic Comment on above: Benign stable per ma mmogram 09/13 Menopausal disorders (17 sources) Atrophic vaginitis 09-05-2019 Chronic Neoplasms of unspecified nature or uncertain behavior (12 sources) Thrombocytosis 04-18-2023 Chronic Nonspecific chest pain (17 sources) Chest discomfort 12-18-2020 Episodic Nutritional deficiencies (18 sources) Vitamin D deficiency; Translations: [Vitamin D deficiency, unspecified] Onset: 5 09-20-2019 Chronic Nutritional deficiencies (11 sources) Cobalamin deficiency; Translations: [Deficiency of other specified B group vitamins] Onset: 3 06-24-2023 Episodic Osteoarthritis (1 source) Osteoarthritis of right hip joint 02-12-2025 Chronic Osteoporosis (18 sources) Osteoporosis; Translations: [Age-related osteoporosis without current pathological fracture] Onset: 5 12-11-2019 Chronic Comment on above: Endocrinology stoppe d ibandronate, recommends repeat DEXA 2020, if worse consider Prolia Other bone disease and musculoskeletal deformities (1 source) Avascular necrosis of the head of femur 02-12-2025 Chronic Other bone disease and musculoskeletal deformities (20 sources) Osteopenia; Translations: [Other specified disorders of bone density and structure, unspecified site] 09-05-2019 Episodic Other bone disease and musculoskeletal deformities (5 sources) X-ray evidence of poor mineralization; Translations: [Other specified disorders of bone density and structure, unspecified site] 12-07-2019 Episodic Other circulatory disease (11 sources) History of paroxysmal supraventricular tachycardia; Translations: [Personal history of other diseases of the circulatory system] 02-28-2023 Episodic Other gastrointestinal disorders (6 sources) Diarrhea 06-20-2023 Episodic Other gastrointestinal disorders (6 sources) Acute diarrhea; Translations: [Diarrhea, unspecified] 06-25-2023 Episodic Other hematologic conditions (2 sources) Thrombocytosis; Translations: [Thrombocytosis, unspecified] Onset: 3 Episodic Other non-traumatic joint disorders (3 sources) Hip pain 01-11-2025 Episodic Other nutritional; endocrine; and metabolic disorders (1 source) Body mass index 30+ - obesity 05-07-2025 Chronic Other nutritional; endocrine; and metabolic disorders (17 sources) Weight loss 09-05-2019 Episodic Other screening for suspected conditions (not mental disorders or infectious disease) (19 sources) Blood chemistry abnormal; Translations: [Other specified abnormal findings of blood chemistry] Onset: Episodic Other upper respiratory disease (17 sources) Polyp of nasal cavity and/or nasal sinus 10-21-2020 Episodic Residual codes; unclassified (17 sources) FH: premature coronary heart disease 12-17-2020 Episodic Residual codes; unclassified (8 sources) Family history of ischemic heart disease; Translations: [Family history of ischemic heart disease and other diseases of the circulatory system] 04-04-2023 Episodic Residual codes; unclassified (1 source) Peripheral edema 02-21-2025 Episodic Thyroid disorders (20 sources) Goiter; Translations: [Multinodular goiter] Onset: 5 08-24-2019 Chronic Unclassified (17 sources) Patient encounter status 09-20-2019 Comment on above: 09/13 ASCVD risk 8.3% 04/16 ascvd risk 15.3 % Unclassified (14 sources) Mild mitral valve regurgitation 12-08-2022 Unclassified (6 sources) Vaccination needed 05-02-2023 Unclassified (1 source) Thrombocytosis, unspecified; Translations: [Thrombocytosis, unspecified] Onset: 3 Unclassified (4 sources) For resuscitation 05-01-2024 Past or Other Problems Problem Classification Problem Date Documented Da te Episodic/Chronic Cardiac dysrhythmias (20 sources) Palpitations; Translations: [Palpitations] Onset: 11-22-2024 02-28-2023 Episodic Other bone disease and musculoskeletal deformities (2 sources) Other specified disorders of bone density and structure, unspecified site; Translations: [Disorder of bone and cartilage, unspecified] Onset: 12-06-2024 Episodic Other circulatory disease (6 sources) Personal history of other diseases of the circulatory system; Translations: [Personal history of other diseases of circulatory system] Onset: 11-22-2024 03-09-2023 Episodic Other gastrointestinal disorders (2 sources) Diarrhea, unspecified; Translations: [Diarrhea, unspecified] Onset: 06-22-2023 Episodic Other non-traumatic joint disorders (2 sources) Pain in right hip; Translations: [Pain in right hip] Onset: 01-11-2025 Episodic Residual codes; unclassified (3 sources) Localized edema; Translations: [Localized edema] Onset: 01-11-2025 Episodic Unclassified (11 sources) History of bone fractures 02-11-2022 Unclassified (11 sources) mitral valve prolaspe 02-11-2022 Unclassified (1 source) Thrombocytosis, unspecified; Translations: [Thrombocytosis, unspecified] Onset: 05-31-2023 Results Test Name Value Interpretation Reference Range Facility SCRN MAMM (CAD)W/BRIGIDO BILATo n 05-24-2025 SCRN MAMM (CAD)W/BRIGIDO BILAT [facility] [address] [place] [address] SCRN MAMM (CAD)W/BRIGIDO BILAT MR#: [id number] Acct: [id number] Name: LEXUS CONTRERAS Rep #: [id number] : 1950 F 74 From: Sunita Deshpande MD PCP: Dr. Yaakov Morris DO Status: [facility] CLI Study: SCRN MAMM (CAD)W/BRIGIDO BILAT Date of Exam: 04/26 08/18 Exam# [id number] Ordering Dr: Yaakvo Morris DO EXAM: SCRN MAMM (CAD)W/BRIGIDO BILAT DATE: 05/24/2025 CLINICAL HISTORY: F, Age 74 y/o , SCREENING TECHNIQUE: Procedure Code: [id number] Modality: MG Procedure: SCRN MAMM (CAD)W/BRIGIDO BILAT COMPARISON: Prior exam(s) dated 05/16/2024, 05/12/2023. FINDINGS: TISSUE DENSITY: There are scattered areas of fibroglandular density. Bilateral Breast Mammographic Findings: No significant masses, calcifications or other abnormalities are identified. BI/SCRN MAMM (CAD)W/BRIGIDO BILAT IMPRESSION: There is no mammographic evidence of malignancy. OVERALL FINAL ASSESSMENT BI-RADS 1: NEGATIVE. RECOMMENDATION: Routine annual follow-up in 1 Year Additional Recommendation none A letter with findings and recommendations will be mailed to the patient. Reading Location: [facility] CC: Dr. Yaakov Morris DO Renal Medicine Physician: Signed Normal [facility] .Auto Diffon 05-16-2025 Basophil, Absolute 0.1 10 3/mcL Normal 0.0-0.3 [facility] Comment on above: Performed By: #### A JIMMY, ADIFF, CBC, PBNP, LIPID #### [address] [address] #### HCV1 #### [address] [address] Basophils/100 WBC (Bld) 0.8 % Normal 0.0-2.5 [facility] Comment on above: Performed By: #### A JIMMY, ADIFF, CBC, PBNP,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 measurement (mass/volume)Ordered By: Bruce Castro on 12-10-2024 Creatinine [Mass/Vol] 0.68 mg/dL Low 0.70-1.20 [facility] Serum globulin measurementOr dered By: Bruce Castro on 12-10-2024 Globulin (S) [Mass/Vol] 2.9 g/dL 2.2-4.2 [facility] Serum glucose measurement (m ass/volume)Ordered By: Bruce Castro on 12-10-2024 Glucose [Mass/Vol] 93 mg/dL 70-99 [facility] Serum or plasma alanine lynch otransferase (ALT) measurementOrdered By: Bruce Castro on 12-10-2024 ALT [Catalytic activity/Vol] 18 U/L <35 [facility] Serum or plasma albumin zac urement (mass/volume)Ordered By: Bruce Castro on 12-10-2024 Albumin [Mass/Vol] 4.1 g/dL 3.4-4.8 [facility] Serum or plasma albumin/glob ulin mass ratioOrdered By: Bruce Castro on 12-10-2024 Albumin/Globulin [Mass ratio] 1.4 {ratio} 0.9-2.4 [facility] Serum or plasma alkaline morro sphatase measurementOrdered By: Bruce Castro on 12-10-2024 ALP [Catalytic activity/Vol] 108 U/L High 35-104 [facility] Serum or plasma calcium zac urement (mass/volume)Ordered By: Bruce Castro on 12-10-2024 Calcium [Mass/Vol] 9.7 mg/dL 7.6-11.0 [facility] Serum or plasma urea nitroge n measurement (mass/volume)Ordered By: Bruce Castro on 12-10-2024 Urea nitrogen [Mass/Vol] 13 mg/dL - [facility] Sodium levelOrdered By: Bruce Castro on 12-10-2024 Sodium [Moles/Vol] 141 mmol/L 133-145 [facility] T4 Free Directon 12-10-2024 T4 FREE DIRECT 1.00 ng/dL Normal 0.76-1.46 [facility] Comment on above: Performed By: #### L 501.9520, L506.0400, L500.4050, L506.1001, L501.51787 #### [facility] [address] [place], [place], [id number] T4 freeOrdered By: Bruce Castro on 12-10-2024 Free T4 [Mass/Vol] 1.00 ng/dL 0.76-1.46 [facility] TSH DL <= 0.005 mIU/L QnOrde red By: Bruce Castro on 12-10-2024 TSH Qn 0.528 uIU/mL 0.300-4.200 [facility] Thyroid Stim Hormone (TSH)on 12-10-2024 TSH 0.528 uIU/mL Normal 0.300-4.200 [facility] Comment on above: Performed By: #### L 501.9520, L506.0400, L500.4050, L506.1001, L501.85501 #### [facility] [address] [place], [place], [address] Total proteinOrdered By: Jacoby Castro on 12-10-2024 Protein [Mass/Vol] 7.0 g/dL 5.9-8.4 [facility] Vitamin D,25 Hydroxyon 12-10 Vitamin D 25-OH 25.1 ng/mL Low 30-100 [facility] Comment on above: Result Comment: Kristine min D Status Deficiency: <20 ng/mL (50nmol/L) Insufficiency: 20-30 ng/mL (50-75 nmol/L) Sufficiency: 30-100 ng/mL (75-250 nmol/L) Toxicity: >100 ng/mL (>250 nmol/L) Performed By: #### L 501.9520, L506.0400, L500.4050, L506.1001, L501.46797 #### [facility] [address] [place], [address] Endocrinology Visit Reporton 12-06-2024 Endocrinology Visit Report [facility] [address] [place] [address] OFFICE VISIT Date of Service: 12/06/24 MR#: [id number] Acct: [id number] Name: LEXUS CONTRERAS Rep #: [id number] : 1950 Provider: Alicia Chaney Age/Sex: 74/F Location: [facility] Status: Signed Intake Vital Signs 06/04/24 09:57 11/22/24 08:19 12/06/24 09:21 Height 5 ft 5 ft 5 ft Weight: 173 lb 6 oz BMI 33.8 BP 126/76 H Blood Pressure Location Lt brachial Position Sitting Pulse 61 Pulse Source Monitor Pulse Oximetry (%) 96 Oxygen Delivery Method room air Intake Visit Reasons: 6 M FU Chief Complaint: Thyroid Is patient in pain?: No Allergies chlorhexidine (From Aaliyah-Hex) Allergy (Intermediate, Verified 12/06/24 09:26) Hives minocycline Allergy (Verified 12/06/24 09:26) unknown pneumococcal vaccine (From Prevnar 13 (PF)) Allergy (Verified 12/06/24 09:26) unknown doxycycline Adverse Reaction (Verified 12/06/24 09:26) Lightheadedness, near syncope loratadine (From Claritin) Adverse Reaction (Verified 12/06/24 09:26) Other Medications ???Medication ???Instructions ???Recorded ???Confirmed ???Type aspirin 81 mg tablet,delayed 81 mg PO DAILY@0800 06/11/1312/06 History release calcium 600 mg (as 1 tab PO DAILY 03/09/23 12/06/24 H istory carbonate)-vitamin D3 20 mcg (800 unit) tablet venaidxa-dnz-klquh acid 0.4 1 tab PO DAILY 08/16/23 05/15/25 H istory mg-lycopene 300 mcg-lutein 250 mcg tablet acetaminophen 325 mg tablet 325 mg PO Q6H PRN pain 06/06/23 History (Tylenol) sertraline 25 mg tablet 25 mg PO DAILY 06/06/23 12/06/24 H istory methimazole 5 mg tablet 2.5 mg (1/2 x 5 mg) PO .Mon and 12/06/24 Rx Fri only #24 tabs lisinopril 5 mg tablet 5 mg PO QDAY #90 tabs 11/22/24 Rx metoprolol tartrate 100 mg tablet 100 mg PO BID #180 tabs 11/22/24 12/06/24 Rx Have you fallen in the past year?: No PFSH Medical History Toxic nodular goiter Family history of ischemic heart disease Thrombocytosis Vitamin D deficiency Osteoporosis Multiple thyroid nodules Mild mitral valve prolapse Low TSH level Inguinal lymphadenopathy Hypertriglyceridemia Axillary lymphadenopathy Iron deficiency anemia Hyperlipidemia Essential hypertension History of paroxysmal supraventricular tachycardia Palpitations Osteopenia determined by x-ray History of cyst of breast History of blood transfusion History of blood clots History of bone fractures Arthritis Weight loss Osteopenia mitral valve prolaspe Goiter Atrophy of vagina Multinodular goiter (nontoxic) Surgical History S/P multiple system trauma surgery Hx of fracture of femur Hx of dilation and curettage H/O thyroidectomy Family History Father Heart disease Kidney disease Myocardial infarction Mother Heart disease Uncle Heart disease Sister Hypertension CAD (coronary artery disease) Brother CAD (coronary artery disease) Hypertension Social History Smoking Status: Never smoker alcohol intake: current alcohol intake frequency: holidays/special occasions only Alcohol type: wine substance use type: does not use caffeine: No what type of physical activity do you participate in: walking frequency: 3-4 times per week HPI HPI Chief Complaint: Thyroid Details: LEXUS CONTRERAS, is a 74 F who presents to the office today for follow up. Ultrasound Nov, 2023: RIGHT LOBE: The right lobe of the thyroid gland measures 5.9 x 2.6 x 3.0 cm. There is a heterogeneous echotexture. Nodule 1: No change in the 10 x 7 x 8 mm mixed cystic and solid hypoechoic wider than tall ill-defined margin nodule with punctate echogenic foci (TR 4) in the mid right lobe and follow-up ultrasound is recommended in one year. Nodule 2: No change in the 11 x 6 x 8 mm solid hypoechoic wider than tall ill-defined margin nodule with no echogenic foci (TR 4) in the lateral right lobe and follow-up ultrasound is recommended in one year. LEFT LOBE: The left lobe of the thyroid gland measures 5.6 x 2.3 x 2.7 cm. There is a heterogeneous echotexture. Nodule 3: Enlarging (15 x 9 x 12 mm from 14 x 7 x 10 mm) mixed cystic and solid hypoechoic wider than tall smoothly marginated nodule with no echogenic foci (TR 3) in the medial left lobe near the isthmus and follow-up ultrasound is recommended in one year. Nodule 4: No change in the 13 x 13 x 13 mm solid hypoechoic wider than tall smoothly marginated nodule with no echogenic foci (TR 4) in the posterior left lobe and follow-up u (more content not included)... Normal [facility] Office Visit Reporton 2024 Office Visit Report [facility] [address] [place] [address] OFFICE VISIT Date of Service: 12/03/24 MR#: [id number] Acct: [id number] Patient: LEXUS CONTRERAS Rep #: [id number] : 1950 Provider: Dr. Jorgito Reid MD Age/Sex: 74/F Location: [facility] Status: Signed Intake Vital Signs 11/22/24 08:19 12/03/24 14:21 Height 5 ft Weight: 172 lb BMI 33.5 BP 125/75 H 137/75 H Blood Pressure Location Lt brachial Rt brachial Position Sitting Sitting Respiration 18 18 Pulse 66 67 Pulse Source NIBP NIBP Comment Pt reports 7/10 hip pain Intake Visit Reasons: BP CHECK Chief Complaint: Thyroid Allergies chlorhexidine (From Aaliyah-Hex) Allergy (Intermediate, Verified 12/06/24 09:26) Hives minocycline Allergy (Verified 12/06/24 09:26) unknown pneumococcal vaccine (From Prevnar 13 (PF)) Allergy (Verified 12/06/24 09:26) unknown doxycycline Adverse Reaction (Verified 12/06/24 09:26) Lightheadedness, near syncope loratadine (From Claritin) Adverse Reaction (Verified 12/06/24 09:26) Other Have you fallen in the past year?: No Nursing Note Pt presents for follow up blood pressure check after medication changes. BP/HR as follows: BP: 152/76 HR: 70 2nd: Right Brachial BP: 137/75 HR: 67 Pt reported 7/10 hip pain x1 week following a chiropractic appointment. Pt stated that it could be contributing to elevated BP as well. Clinical Quality Measures Falls Risk Screening/Assistive Devices Have you fallen in the past year?: No 12/24/24 1432 Date Jorgito Reid MD Cosigner Signature: Date (if applicable) CC: Normal [facility] Cardiology Visit Reporton Cardiology Visit Report [facility] [address] [place] [address]. [address] [place] [address] OFFICE VISIT Date of Service: 11/22/24 MR#: [id number] Acct: [id number] Name: LEXUS CONTRERAS Rep #: [id number] : 1950 Provider: Dr. Jorgito Reid MD Age/Sex: 73/F Location: [facility] Status: Signed HPI HPI History of Present Illness Details: This lady with history of paroxysmal supraventricular tachycardia is here for follow-up visit. She has had 1 more episode of palpitations since she last saw us. Since then, her metoprolol has been increased to 75 mg twice daily. Today reports being very well. Denies any complaints. No chest pains. No shortness of breath. No palpitations. No orthopnea PND. No ankle edema. Intake Vital Signs 06/14/24 08:45 11/22/24 08:19 Height 5 ft 5 ft Weight: 162 lb 172 lb BMI 31.6 33.5 BP 132/78 H 125/75 H Blood Pressure Location Lt brachial Lt brachial Position Sitting Sitting Respiration 16 18 Pulse 63 66 Pulse Source NIBP NIBP Intake Visit Reasons: 6 M FU Allergies chlorhexidine (From Aaliyah-Hex) Allergy (Intermediate, Verified 06/14/24 13:26) Hives minocycline Allergy (Verified 06/14/24 13:26) unknown pneumococcal vaccine (From Prevnar 13 (PF)) Allergy (Verified 06/14/24 13:26) unknown doxycycline Adverse Reaction (Verified 06/14/24 13:) Lightheadedness, near syncope loratadine (From Claritin) Adverse Reaction (Verified 06/14/24 13:26) Other Medications ???Medication ???Instructions ???Recorded ???Confirmed ???Type aspirin 81 mg tablet,delayed 81 mg PO DAILY@0800 06/11/1311/22 History release lisinopril 10 mg tablet 10 mg PO DAILY 02/10/23 11/22/24 H istory calcium 600 mg (as 1 tab PO DAILY 03/09/23 11/22/24 H istory carbonate)-vitamin D3 20 mcg (800 unit) tablet htvxkqnv-ppd-sedex acid 0.4 1 tab PO DAILY 03/09/23 11/22/24 H istory mg-lycopene 300 mcg-lutein 250 mcg tablet acetaminophen 325 mg tablet 325 mg PO Q6H PRN pain 06/06/23 History (Tylenol) sertraline 25 mg tablet 25 mg PO DAILY 06/06/23 11/22/24 H istory methimazole 5 mg tablet 2.5 mg (1/2 x 5 mg) PO .Mon and 11/22/24 Rx Fri only #24 tabs metoprolol tartrate 50 mg tablet 75 mg (1.5 x 50 mg) PO BID #270 11/22/24 Rx tabs Ejection fraction %: 65 Have you fallen in the past year?: No PFSH Medical History Arthritis Atrophy of vagina Axillary lymphadenopathy Essential hypertension Family history of ischemic heart disease Goiter History of blood clots History of blood transfusion History of bone fractures History of cyst of breast History of paroxysmal supraventricular tachycardia Hyperlipidemia Hypertriglyceridemia Inguinal lymphadenopathy Iron deficiency anemia Low TSH level Mild mitral valve prolapse mitral valve prolaspe Multinodular goiter (nontoxic) Multiple thyroid nodules Osteopenia Osteopenia determined by x-ray Osteoporosis Palpitations Thrombocytosis Toxic nodular goiter Vitamin D deficiency Weight loss Surgical History H/O thyroidectomy Hx of dilation and curettage Hx of fracture of femur S/P multiple system trauma surgery Family History Father Heart disease Kidney disease Myocardial infarction Mother Heart disease Uncle Heart disease Sister Hypertension CAD (coronary artery disease) Brother CAD (coronary artery disease) Hypertension Social History Smoking Status: Never smoker alcohol intake: current alcohol intake frequency: holidays/special occasions only Alcohol type: wine substance use type: does not use caffeine: No what type of physical activity do you participate in: walking frequency: 3-4 times per week ROS Const Const: Negative for fatigue, weakness, headache(s) or weight gain ENT ENT: Negative for headache(s), dizziness, Nosebleed/epistaxis or balance problems Cardio Chest Pain: No Palpitations: No Edema: None Muscle aches with walking: None Resp Respiratory: Negative for SOB with activity, SOB at rest or SOB orthopnea SOB lying down GI GI: Negative nausea, vomiting or heartburn Musc Musc: Negative for muscle aches/ myalgia, muscle weakness, joint pain or balance problems Neuro Neuro: Negative for dizziness, lightheadedness, near syncope, syncope, headache(s) or weakness Endo Endo: Negative for fatigue Cardiology Exam Const Appearance: comfortable and no acute distress Nutritional Appearance: well nourished Neck Neck: no JVD Carotids: Negative bruit Chest Auscultation: Bilateral: Clear to Auscultation Cardio Rate: (more content not included)... Normal [facility] Direct serum free thyroxine (FT4) measurementOrdered By: Bruce Castro on 09-13-2024 Free T4 [Mass/Vol] 0.85 ng/dL 0.76-1.46 [facility] Free T3on 09-13-2024 Free T3 [Mass/Vol] 2.8 pg/mL Normal 2.18-3.98 [facility] Comment on above: Performed By: #### L 501.69809, L506.0400, L501.9520 #### [facility] [address] [place], [address] Free [id number] By: Bruce Castro on 09-13-2024 Free T3 [Mass/Vol] 2.8 pg/mL 2.18-3.98 [facility] Serum or plasma thyroid stim ulating hormone (TSH) measurement (units/volume)Ordered By: Bruce Castro on 09-13-2024 TSH Qn 0.833 uIU/mL 0.358-3.740 [facility] T4 Free Directon 09-13-2024 T4 FREE DIRECT 0.85 ng/dL Normal 0.76-1.46 [facility] Comment on above: Performed By: #### L 501.08203, L506.0400, L501.9520 ####[facility] [id number] [place], [place], [id number] Thyroid Stim Hormone (TSH)on 09-13-2024 TSH 0.833 uIU/mL Normal 0.358-3.740 [facility] Comment on above: Performed By: #### L 501.21454, L506.0400, L501.9520 ####[facility] [id number] [facility] [place], [address] Dexa Bone Density Studyon Dexa Bone Density Study [facility] [address] [place], [place] [address] Dexa Bone Density Study MR#: [id number] Acct: [id number] Name: LEXUS CONTRERAS Rep #: [id number] : 1950 F 73 From: Niko persaud MD PCP: Dr. aYakov Morris, DO Status: REG CLI Study: Dexa Bone Density Study Date of Exam: 08/02/24 Exam# [id number] Ordering Dr: Bruce Castro MD [id number] STUDY: DUAL ENERGY X-RAY ABSORPTIOMETRY / DXA REASON FOR EXAM: Female, 73 years old. Compare 2021 TECHNIQUE: Bone Mineral Density (BMD) measurements of lumbar spine and right hip were obtained. COMPARISON: Comparison is made with prior study June 23, 2022. FINDINGS: Lumbar Spine (L1-L4): g/cm2 (0.905) / T-score (-1.3) / Z-score (1.0) Findings are suggestive of osteopenia with a low fracture risk. Right Femur Total: g/cm2 (0.671) / T-score (-2.2) / Z-score (-0.5) Right Femoral Neck: g/cm2 (0.693) / T-score (-1.4) / Z-score (0.6) The T-Scores on the most recent prior examination were: Lumbar Spine (L1-L4): There has been improvement of bone density since the previous examination. Right Femur Total: which represents a worsening of 4.5%. BD/Dexa Bone Density Study IMPRESSION: The patient is considered osteopenic as outlined below according to World Lex Organization (WHO) criteria with a moderate fracture risk. There has been worsening of bone density since the previous examination. Reference Information: The T-score is the number of standard deviations above or below the standard which is normal for young adults at their peak bone mineral density. The World Health Organization (WHO) interprets the T-scores as follows: Above -1 Normal bone density Between -1 and -2.5 Osteopenia Equal to / or below -2.5 Osteoporosis As a practical clinical guideline, osteopenia may be graded as follows: Mild -1 through -1.5 Moderate -1.6 through -2.0 Severe -2.1 through -2.4 The Z-score is the number of standard deviations above or below age-matched controls. A Z-score of less than -1.5 would be considered abnormal. References: 1. NIH Osteoporosis and Related Bone Diseases www osteo.org 2. International Society for Clinical Densitometry www iscd.org 3. National Osteoporosis Foundation www nof.org Electronically Signed: Niko Gama MD at 9:28 EST , CC: Dr. Yaakov Morris DO; Dr. Bruce Castro MD Renal Medicine Physician: Signed Normal [facility] Cardiology Visit Reporton Cardiology Visit Report [facility] [address] [place] [address] OFFICE VISIT Date of Service: 06/14/24 MR#: [id number] Acct: [id number] Name: LEXUS CONTRERAS Rep #: [id number] : 1950 Provider: Dr. Jorgito Reid MD Age/Sex: 73/F Location: [facility] Status: Signed HPI HPI History of Present Illness Details: Pleasant lady with past medical history significant for paroxysmal supraventricular tachycardia and toxic nodular goiter is here for follow-up visit. Denies any complaints. No chest pains or shortness of breath. No orthopnea or PND. No ankle edema. According to her, she has had just 1 episode of palpitations. Per her, she has had some caffeinated beverages and then had a fast heartbeat which resolved on its own. Intake Vital Signs 06/04/24 09:57 06/14/24 08:45 Height 5 ft 5 ft Weight: 164 lb 2 oz 162 lb BMI 32.0 31.6 BP 138/78 H 132/78 H Blood Pressure Location Rt brachial Lt brachial Position Sitting Sitting Respiration 16 Pulse 60 63 Pulse Source Monitor NIBP Pulse Oximetry (%) 94 Oxygen Delivery Method room air Intake Visit Reasons: 6 M FU Director Of Human Resources Required: No Accompanied by: Self Is patient in pain?: No Allergies chlorhexidine (From Aaliyah-Hex) Allergy (Intermediate, Verified 06/14/24 13:26) Hives minocycline Allergy (Verified 06/14/24 13:26) unknown pneumococcal vaccine (From Prevnar 13 (PF)) Allergy (Verified 06/14/24 13:26) unknown doxycycline Adverse Reaction (Verified 06/14/24 13:26) Lightheadedness, near syncope loratadine (From Claritin) Adverse Reaction (Verified 06/14/24 13:26) Other Medications ???Medication ???Instructions ???Recorded ???Confirmed ???Type aspirin 81 mg tablet,delayed 81 mg PO DAILY@0800 06/11/13 06/14/24 History release lisinopril 10 mg tablet 10 mg PO DAILY 02/10/23 06/14/24 History calcium 600 mg (as 1 tab PO DAILY 03/09/23 06/14/24 History carbonate)-vitamin D3 20 mcg (800 unit) tablet zpppjvod-qva-qpynp acid 0.4 1 tab PO DAILY 03/09/23 06/14/24 History mg-lycopene 300 mcg-lutein 250 mcg tablet acetaminophen 325 mg tablet 325 mg PO Q6H PRN pain 06/06/23 06/14/24 History (Tylenol) sertraline 25 mg tablet 25 mg PO DAILY 06/06/23 06/14/24 History metoprolol tartrate 50 mg tablet 50 mg PO BID #180 tabs 06/07/23 06/14/24 Rx methimazole 5 mg tablet 2.5 mg (1/2 x 5 mg) PO .Mon and 06/04/24 06/14/24 Rx Fri only #24 tabs Ejection fraction %: 65 Have you fallen in the past year?: No PFSH Medical History Arthritis Atrophy of vagina Axillary lymphadenopathy Essential hypertension Family history of ischemic heart disease Goiter History of blood clots History of blood transfusion History of bone fractures History of cyst of breast History of paroxysmal supraventricular tachycardia Hyperlipidemia Hypertriglyceridemia Inguinal lymphadenopathy Iron deficiency anemia Low TSH level Mild mitral valve prolapse mitral valve prolaspe Multinodular goiter (nontoxic) Multiple thyroid nodules Osteopenia Osteopenia determined by x-ray Osteoporosis Palpitations Thrombocytosis Toxic nodular goiter Vitamin D deficiency Weight loss Surgical History H/O thyroidectomy Hx of dilation and curettage Hx of fracture of femur S/P multiple system trauma surgery Family History Father Heart disease Kidney disease Myocardial infarction Mother Heart disease Uncle Heart disease Sister Hypertension CAD (coronary artery disease) Brother CAD (coronary artery disease) Hypertension Social History Smoking Status: Never smoker alcohol intake: current alcohol intake frequency: holidays/special occasions only Alcohol type: wine substance use type: does not use caffeine: No what type of physical activity do you participate in: walking frequency: 3-4 times per week ROS Const Const: Negative for fatigue, weakness, headache(s) or weight gain ENT ENT: Negative for headache(s), dizziness, Nosebleed/epistaxis or balance problems Cardio Chest Pain: No Palpitations: No Edema: None Muscle aches with walking: None Resp Respiratory: Negative for SOB with activity, SOB at rest or SOB orthopnea SOB lying down GI GI: Negative nausea, vomiting or heartburn Musc Musc: Negative for muscle aches/ myalgia, muscle weakness, joint pain or balance problems Neuro Neuro: Negative for dizziness, lightheadedness, near syncope, syncope, headache(s) or weakness Endo Endo: Negative for fatigue Cardiology Exam Const Appearance: comfortable and no acute distress Nutritional Appearan (more content not included)... Normal [facility] Endocrinology Visit Reporton 06-04-2024 Endocrinology Visit Report [facility] [address] [place] [address] OFFICE VISIT Date of Service: 06/04/24 MR#: [id number] Acct: [id number] Name: LEXUS CONTRERAS Juan Rep #: [id number] : 1950 Provider: Alicia Chaney Age/Sex: 73/F Location: [facility] Status: Signed Intake Vital Signs 12/05/23 09:56 01/10/24 10:25 06/04/24 09:57 Height 5 ft 5 ft 5 ft Weight: 150 lb 164 lb 2 oz BMI 29.2 32.0 BP 114/70 138/78 H Blood Pressure Location Lt brachial Rt brachial Position Sitting Sitting Respiration 16 Pulse 56 L 60 Pulse Source Monitor Monitor Pulse Oximetry (%) 94 Oxygen Delivery Method room air Intake Visit Reasons: 6 M FU Chief Complaint: Thyroid Is patient in pain?: No Allergies chlorhexidine (From Aaliyah-Hex) Allergy (Intermediate, Verified 01/10/24 10:29) Hives minocycline Allergy (Verified 01/10/24 10:29) unknown pneumococcal vaccine (From Prevnar 13 (PF)) Allergy (Verified 01/10/24 10:29) unknown doxycycline Adverse Reaction (Verified 01/10/24 10:29) Lightheadedness, near syncope loratadine (From Claritin) Adverse Reaction (Verified 01/10/24 10:29) Other Medications ???Medication ???Instructions ???Recorded ???Confirmed ???Type aspirin 81 mg tablet,delayed 81 mg PO DAILY@0800 06/11/13 06/04/24 History release lisinopril 10 mg tablet 10 mg PO DAILY 02/10/23 06/04/24 History calcium 600 mg (as 1 tab PO DAILY 03/09/23 06/04/24 History carbonate)-vitamin D3 20 mcg (800 unit) tablet jeugilgs-kyq-rgxcz acid 0.4 1 tab PO DAILY 03/09/23 06/04/24 History mg-lycopene 300 mcg-lutein 250 mcg tablet acetaminophen 325 mg tablet 325 mg PO Q6H PRN pain 06/06/23 06/04/24 History (Tylenol) sertraline 25 mg tablet 25 mg PO DAILY 06/06/23 06/04/24 History metoprolol tartrate 50 mg tablet 50 mg PO BID #180 tabs 06/07/23 06/04/24 Rx methimazole 5 mg tablet 2.5 mg (1/2 x 5 mg) PO .Mon and 06/04/24 Rx Fri only #24 tabs Have you fallen in the past year?: No PFSH Medical History Toxic nodular goiter Family history of ischemic heart disease Thrombocytosis Vitamin D deficiency Osteoporosis Multiple thyroid nodules Mild mitral valve prolapse Low TSH level Inguinal lymphadenopathy Hypertriglyceridemia Axillary lymphadenopathy Iron deficiency anemia Hyperlipidemia Essential hypertension History of paroxysmal supraventricular tachycardia Palpitations Osteopenia determined by x-ray History of cyst of breast History of blood transfusion History of blood clots History of bone fractures Arthritis Weight loss Osteopenia mitral valve prolaspe Goiter Atrophy of vagina Multinodular goiter (nontoxic) Surgical History S/P multiple system trauma surgery Hx of fracture of femur Hx of dilation and curettage H/O thyroidectomy Family History Father Heart disease Kidney disease Myocardial infarction Mother Heart disease Uncle Heart disease Sister Hypertension CAD (coronary artery disease) Brother CAD (coronary artery disease) Hypertension Social History Smoking Status: Never smoker alcohol intake: current alcohol intake frequency: holidays/special occasions only Alcohol type: wine substance use type: does not use caffeine: No what type of physical activity do you participate in: walking frequency: 3-4 times per week HPI HPI Chief Complaint: Thyroid Details: LEXUS CONTRERAS, is a 73 F who presents to the office today for follow up. Ultrasound Nov, 2023: RIGHT LOBE: The right lobe of the thyroid gland measures 5.9 x 2.6 x 3.0 cm. There is a heterogeneous echotexture. Nodule 1: No change in the 10 x 7 x 8 mm mixed cystic and solid hypoechoic wider than tall ill-defined margin nodule with punctate echogenic foci (TR 4) in the mid right lobe and follow-up ultrasound is recommended in one year. Nodule 2: No change in the 11 x 6 x 8 mm solid hypoechoic wider than tall ill-defined margin nodule with no echogenic foci (TR 4) in the lateral right lobe and follow-up ultrasound is recommended in one year. LEFT LOBE: The left lobe of the thyroid gland measures 5.6 x 2.3 x 2.7 cm. There is a heterogeneous echotexture. Nodule 3: Enlarging (15 x 9 x 12 mm from 14 x 7 x 10 mm) mixed cystic and solid hypoechoic wider than tall smoothly marginated nodule with no echogenic foci (TR 3) in the medial left lobe near the isthmus and follow-up ultrasound is recommended in one year. Nodule 4: No change in the 13 x 13 x 13 mm solid hypoechoic wider than tall smoothly marginated nodule with no echogenic foci (TR 4) in the p (more content not included)... Normal [facility] .Auto Diffon 05-21-2024 Basophil, Absolute 0.0 10 3/mcL Normal 0.0-0.2 [facility] Comment on above: Performed By: #### L IPID, CBC, ANEU, ADIFF #### [place] [address] #### B12 #### [address] [address] Basophils/100 WBC (Bld) 0.7 % Normal 0.0-2.5 [facility] Comment on above: Performed By: #### L IPID, CBC, ANEU, ADIFF #### [place] [address] #### B12 #### [address] [address] Eosinophil, Absolute 0.5 10 3/mcL Normal 0.0-0.7 [facility] Comment on above: Performed By: #### L IPID, CBC, ANEU, ADIFF #### [place] [address] #### B12 #### [address] [address] Eosinophils/100 WBC (Bld) 7.1 % High 0.0-7.0 [facility] Comment on above: Performed By: #### L IPID, CBC, ANEU, ADIFF #### [place] [address] #### B12 #### [address] [address] Lymphocyte, Absolute 2.2 10 3/mcL Normal 0.9-4.3 [facility] Comment on above: Performed By: #### L IPID, CBC, ANEU, ADIFF #### [place] [address] #### B12 #### [address] [address] Lymphocytes/100 WBC (Bld) 32.2 % Normal 20.0-40.0 [facility] Comment on above: Performed By: #### L IPID, CBC, ANEU, ADIFF #### [address] [address] #### B12 #### [address] [address] Monocyte, Absolute 0.5 10 3/mcL Normal 0.1-1.4 [facility] Comment on above: Performed By: #### L IPID, CBC, ANEU, ADIFF #### [address] [address] #### B12 #### [address] [address] Monocytes/100 WBC (Bld) 7.5 % Normal 2.0-13.0 [facility] Comment on above: Performed By: #### L IPID, CBC, ANEU, ADIFF #### [address] [address] #### B12 #### [address] [address] Neutrophils/100 WBC (Bld) 52.5 % Normal 50.0-75.0 [facility] Comment on above: Performed By: #### L IPID, CBC, ANEU, ADIFF #### [address] [address] #### B12 #### [address] [address] .NEUABSon 05-21-2024 Neutrophil, Absolute 3.5 10 3/mcL Normal 2.3-8.1 [facility] Comment on above: Performed By: #### L IPID, CBC, ANEU, ADIFF #### [address] [address] #### B12 #### [address] [address] B12on 10-28-2024 Cobalamin (Vitamin B12) [Mass/Vol] 410 pg/mL Normal 211-911 [facility] Comment on above: Performed By: #### L IPID, CBC, ANEU, ADIFF #### [address] [address] #### B12 #### [address] [address] CBCon 05-21-2024 Erythrocyte distribution width (RBC) [Ratio] 14.3 % Normal 11.5-15.5 [facility] Comment on above: Performed By: #### L IPID, CBC, ANEU, ADIFF #### [address] [address] #### B12 #### [place] [address] Hematocrit (Bld) [Volume fraction] 38.1 % Normal 34.0-46.0 [facility] Comment on above: Performed By: #### L IPID, CBC, ANEU, ADIFF #### [place] [address] #### B12 #### [place] [address] Hgb 12.5 G/dL Normal 12.0-16.0 [facility] Comment on above: Performed By: #### L IPID, CBC, ANEU, ADIFF #### [place] [address] #### B12 #### [place] [address] MCH (RBC) [Entitic mass] 28.6 pg Normal 27.0-33.0 [facility] Comment on above: Performed By: #### L IPID, CBC, ANEU, ADIFF #### [place] [address] #### B12 #### [place] [address] MCHC 32.8 G/dL Normal 32.0-36.0 [facility] Comment on above: Performed By: #### L IPID, CBC, ANEU, ADIFF #### [place] [address] #### B12 #### [place] [address] MCV (RBC) [Entitic vol] 87.1 fL Normal 80.0-99.0 [facility] Comment on above: Performed By: #### L IPID, CBC, ANEU, ADIFF #### [place] [address] #### B12 #### [place] [address] Platelet 384 10 3/mcL Normal 150-450 [facility] Comment on above: Performed By: #### L IPID, CBC, ANEU, ADIFF #### [place] [address] #### B12 #### [place] [address] Platelet mean volume (Bld) [Entitic vol] 7.4 fL Normal 6.6-10.5 [facility] Comment on above: Performed By: #### L IPID, CBC, ANEU, ADIFF #### [place] [address] #### B12 #### [place] [address] RBC 4.37 10 6/mcL Normal 4.10-5.30 [facility] Comment on above: Performed By: #### L IPID, CBC, ANEU, ADIFF #### [place] [address] #### B12 #### [place] [address] WBC 6.7 10 3/mcL Normal 4.5-10.8 [facility] Comment on above: Performed By: #### L IPID, CBC, ANEU, ADIFF #### [place] [address] #### B12 #### [place] [address] LABORATORYOrdered By: SYSTEM SYSTEM on 05-21-2024 Basophils (Bld) [#/Vol] 0.0 103/mcL Normal 0.0 - 0.2 10^3/mcL AO Workflow SS Basophils/100 WBC (Bld) 0.7 % Normal 0.0 - 2.5 % AO Workflow SS Cobalamin (Vitamin B12) [Mass/Vol] 410 pg/mL Normal 211 - 911 pg/mL AH ADM SS Eosinophil, Absolute 0.5 103/mcL Normal 0.0 - 0 .7 10^3/mcL AO Workflow SS Eosinophils/100 WBC (Bld) 7.1 % High 0.0 - 7.0 % AO Workflow SS Erythrocyte distribution width (RBC) [Ratio] 14.3 % Normal 11.5 - 15.5 % AO Workflow SS Hematocrit (Bld) [Volume fraction] 38.1 % Normal 34.0 - 46.0 % AO Workflow SS Hemoglobin (Bld) [Mass/Vol] 12.5 G/dL Normal 12.0 - 16.0 G/dL AO Workflow SS Lymphocytes (Bld) [#/Vol] 2.2 103/mcL Normal 0.9 - 4.3 10^3/mcL AO Workflow SS Lymphocytes/100 WBC (Bld) 32.2 % Normal 20.0 - 40.0 % AO Workflow SS MCH (RBC) [Entitic mass] 28.6 pg Normal 27.0 - 33.0 pg AO Workflow SS MCHC 32.8 G/dL Normal 32.0 - 36.0 G/dL AO Workflow SS MCV (RBC) [Entitic vol] 87.1 fL Normal 80.0 - 99.0 fL AO Workflow SS Monocytes (Bld) [#/Vol] 0.5 103/mcL Normal 0.1 - 1.4 10^3/mcL AO Workflow SS Monocytes/100 WBC (Bld) 7.5 % Normal 2.0 - 13.0 % AO Workflow SS Neutrophils (Bld) [#/Vol] 3.5 103/mcL Normal 2.3 - 8.1 10^3/mcL AO Workflow SS Neutrophils/100 WBC (Bld) 52.5 % Normal 50.0 - 75.0 % AO Workflow SS Platelet mean volume (Bld) [Entitic vol] 7.4 fL Normal 6.6 - 10.5 fL AO Workflow SS Platelets (Bld) [#/Vol] 384 103/mcL Normal 150 - 450 10^3/mcL AO Workflow SS RBC (Bld) [#/Vol] 4.37 106/mcL Normal 4.10 - 5.3 0 10^6/mcL AO Workflow SS WBC (Bld) [#/Vol] 6.7 103/mcL Normal 4.5 - 10.8 10^3/mcL AO Workflow SS LABORATORYOrdered By: Xin Moody on 05-21-2024 Cholesterol [Mass/Vol] 211 mg/dL High 0 - 200 mg/dL AO ADM SS Comment on above: Interpretive Data: C holesterol Reference Interval: Less than 200 Desirable 200-239 Borderline high risk 240 and above High risk Cholesterol in HDL [Mass/Vol] 73 mg/dL High 40 - 60 mg/dL AO ADM SS Cholesterol in LDL [Mass/Vol] 127 mg/dL Normal 0 - 130 mg/dL AO ADM SS Triglyceride [Mass/Vol] 54 mg/dL Normal 0 - 150 mg/dL AO ADM SS Comment on above: Interpretive Data: T riglyceride Reference Interval: Less than 150 Normal 150-199 Borderline high risk 200-499 High risk 500 or higher Very high risk LIPIDon 05-21-2024 Cholesterol [Mass/Vol] 211 mg/dL High 0-200 [facility] Comment on above: Result Comment: Chol esterol Reference Interval: Less than 200 Desirable 200-239 Borderline high risk 240 and above High risk Performed By: #### L IPID, CBC, ANEU, ADIFF #### [address] [address] #### B12 #### [address] [address] Cholesterol in HDL [Mass/Vol] 73 mg/dL High 40-60 [facility] Comment on above: Performed By: #### L IPID, CBC, ANEU, ADIFF #### [address] [address] #### B12 #### [address] [address] Cholesterol in LDL [Mass/Vol] 127 mg/dL Normal 0-130 [facility] Comment on above: Performed By: #### L IPID, CBC, ANEU, ADIFF #### [address] [address] #### B12 #### [address] [address] Triglyceride [Mass/Vol] 54 mg/dL Normal 0-150 [facility] Comment on above: Result Comment: Trig lyceride Reference Interval: Less than 150 Normal 150-199 Borderline high risk 200-499 High risk 500 or higher Very high risk Performed By: #### L IPID, CBC, ANEU, ADIFF #### [address] [address] #### B12 #### [place] [address] Jagruti 12-05-2023 Gastrin <10 Normal 0-115 [facility] ([place]) Comment on above: Result Comment: [facility] Immulite 2000 Immunochemiluminometric assay (ICMA) Values obtained with different assay methods or kits cannot be used interchangeably. Results cannot be interpreted as absolute evidence of the presence or absence of malignant disease. Performed At: [facility] [id number] Stan Gray MD Ph:[phone] Performed By: #### B 12, FOL #### [place] [address] #### IBC, FERR #### [address] [address] INTABon 12-02-2023 Intrinsic Factor Abs 1.0 Au/mL Normal 0.0-1.1 [facility] ([place]) Comment on above: Result Comment: Perf ormed At: [facility] [id number] Stan Gray MD Ph:[phone] Performed By: #### B 12, FOL #### [place] [address] #### IBC, FERR #### [address] [address] .Auto DiffOrdered By: SYSTEM SYSTEM on 2023 Basophil, Absolute 0.1 103/mcL Normal 0.0-0.2 AO Wo rkflow SS Comment on above: Performed By: #### B 12, FOL #### [place] [address] #### IBC, FERR #### [address] [address] Basophils/100 WBC (Bld) 0.7 % Normal 0.0-2.5 AO Workflow SS Comment on above: Performed By: #### B 12, FOL #### [place] [address] #### IBC, FERR #### [address] [address] Eosinophil, Absolute 0.3 103/mcL Normal 0.0-0.4 AO Workflow SS Comment on above: Performed By: #### B 12, FOL #### [place] [address] #### IBC, FERR #### [address] [address] Eosinophils/100 WBC (Bld) 4.3 % Normal 0.0-7.0 AO Workflow SS Comment on above: Performed By: #### B 12, FOL #### [place] [address] #### IBC, FERR #### [address] [address] Lymphocyte, Absolute 1.8 103/mcL Normal 0.8-3.9 AO Workflow SS Comment on above: Performed By: #### B 12, FOL #### [place] [address] #### IBC, FERR #### [address] [address] Lymphocytes/100 WBC (Bld) 24.4 % Normal 10.0-50.0 AO Workflow SS Comment on above: Performed By: #### B 12, FOL #### [place] [address] #### IBC, FERR #### [address] [address] Monocyte, Absolute 0.6 103/mcL Normal 0.2-1.0 AO Wo rkflow SS Comment on above: Performed By: #### B 12, FOL #### [place] [address] #### IBC, FERR #### [address] [address] Monocytes/100 WBC (Bld) 7.4 % Normal 1.7-13.0 AO Workflow SS Comment on above: Performed By: #### B 12, FOL #### [place] [address] #### IBC, FERR #### [address] [address] Neutrophils/100 WBC (Bld) 63.2 % Normal 37.0-80.0 AO Workflow SS Comment on above: Performed By: #### B 12, FOL #### [place] [address] #### IBC, FERR #### [address] [address] .GFRon 2023 GFR Non- 90 ml/min/1.73sqm Normal [facility] ([place]) Comment on above: Result Comment: GFR Population mean for , Non- Americans Ages 20-29 = 116 mL/min/1.73 sq.m. Ages 30-39 = 107 mL/min/1.73 sq.m. Ages 40-49 = 99 mL/min/1.73 sq.m. Ages 50-59 = 93 mL/min/1.73 sq.m. Ages 60-69 = 85 mL/min/1.73 sq.m. Ages 70+ = 75 mL/min/1.73 sq.m. Chronic Kidney Disease: Less than 60 mL/min/1.73 square meters End Stage Renal Disease: Less than 15 mL/min/1.73 square meters Performed By: #### B 12, FOL #### [place] [address] #### IBC, FERR #### [address] [address] GFR 109 ml/min/1.73sqm Normal [facility] ([place]) Comment on above: Result Comment: GFR Population mean for , Non- Americans Ages 20-29 = 116 mL/min/1.73 sq.m. Ages 30-39 = 107 mL/min/1.73 sq.m. Ages 40-49 = 99 mL/min/1.73 sq.m. Ages 50-59 = 93 mL/min/1.73 sq.m. Ages 60-69 = 85 mL/min/1.73 sq.m. Ages 70+ = 75 mL/min/1.73 sq.m. Chronic Kidney Disease: Less than 60 mL/min/1.73 square meters End Stage Renal Disease: Less than 15 mL/min/1.73 square meters Performed By: #### Sidney 12, FOL #### [place] [address] #### IBC, FERR #### [place] [address] .NEUABSOrdered By: SYSTEM SY STEM on 2023 Neutrophil, Absolute 4.7 103/mcL Normal 2.9-6.2 AO Workflow SS Comment on above: Performed By: #### Sidney 12, FOL #### [place] [address] #### IBC, FERR #### [place] [address] BMPon 2023 BUN/Creatinine Ratio 17 ratio Normal 7-27 [facility] ([place]) Comment on above: Performed By: #### Sidney 12, FOL #### [place] [address] #### IBC, FERR #### [place] [address] BMPOrdered By: SYSTEM SYSTEM on 2023 Calcium [Mass/Vol] 8.8 mg/dL Normal 8.4-10.2 AO ADM SS Comment on above: Performed By: #### Sidney 12, FOL #### [place] [address] #### IBC, FERR #### [address] [address] Chloride [Moles/Vol] 104 mmol/L Normal 98-107 AO A DM SS Comment on above: Performed By: #### Sidney 12, FOL #### [place] [address] #### IBC, FERR #### [address] [address] CO2 [Moles/Vol] 30 mmol/L Normal 23-31 AO ADM SS Comment on above: Performed By: #### Sidney 12, FOL #### [place] [address] #### IBC, FERR #### [address] [address] Creatinine [Mass/Vol] 0.65 mg/dL Normal 0.55-1.02 AO ADM SS Comment on above: Performed By: #### Sidney 12, FOL #### [place] [address] #### IBC, FERR #### [address] [address] Electrolyte Balance 7.0 mEq/L Normal 4.0-15.0 AO AD M SS Comment on above: Performed By: #### Sidney 12, FOL #### [place] [address] #### IBC, FERR #### [address] [address] Glucose [Mass/Vol] 78 mg/dL Low 83-110 AO ADM SS Comment on above: Performed By: #### Sidney 12, FOL #### [place] [address] #### IBC, FERR #### [address] [address] Potassium [Moles/Vol] 4.6 mmol/L Normal 3.5-5.1 AO ADM SS Comment on above: Performed By: #### Sidney 12, FOL #### [place] [address] #### IBC, FERR #### [place] [address] Sodium [Moles/Vol] 141 mmol/L Normal 136-145 AO ADM SS Comment on above: Performed By: #### B 12, FOL #### [place] [address] #### IBC, FERR #### [address] [address] Urea nitrogen [Mass/Vol] 11 mg/dL Normal 7-18 AO ADM SS Comment on above: Performed By: #### B 12, FOL #### [place] [address] #### IBC, FERR #### [place] [address] CBCOrdered By: SYSTEM SYSTEM on 2023 Erythrocyte distribution width (RBC) [Ratio] 14.2 % Normal 11.5-14.5 AO Workflow SS Comment on above: Performed By: #### Sidney 12, FOL #### [place] [address] #### IBC, FERR #### [place] [address] Hematocrit (Bld) [Volume fraction] 35.5 % Low 37.0-47.0 AO Workflow SS Comment on above: Performed By: #### B 12, FOL #### [place] [address] #### IBC, FERR #### [place] [address] MCH (RBC) [Entitic mass] 28.6 pg Normal 27.0-31.2 AO Workflow SS Comment on above: Performed By: #### B 12, FOL #### [place] [address] #### IBC, FERR #### [place] [address] MCHC 33.4 G/dL Normal 33.0-37.0 AO Workflow SS Comment on above: Performed By: #### B 12, FOL #### [place] [address] #### IBC, FERR #### [address] [address] MCV (RBC) [Entitic vol] 85.8 fL Normal 80.0-94.0 AO Workflow SS Comment on above: Performed By: #### B 12, FOL #### [place] [address] #### IBC, FERR #### [address] [address] Platelet mean volume (Bld) [Entitic vol] 7.9 fL Normal 7.4-10.4 AO Workflow SS Comment on above: Performed By: #### B 12, FOL #### [place] [address] #### IBC, FERR #### [address] [address] CBCon 2023 Hgb 11.8 G/dL Low 12.0-16.0 [facility] ([place]) Comment on above: Performed By: #### B 12, FOL #### [place] [address] #### IBC, FERR #### [address] [address] Platelet 388 10 3/mcL Normal 130-400 [facility] ([place]) Comment on above: Performed By: #### B 12, FOL #### [place] [address] #### IBC, FERR #### [address] [address] RBC 4.13 10 6/mcL Low 4.20-5.40 [facility] ([place]) Comment on above: Performed By: #### B 12, FOL #### [place] [address] #### IBC, FERR #### [address] [address] WBC 7.5 10 3/mcL Normal 4.6-10.8 [facility] ([place]) Comment on above: Performed By: #### B 12, FOL #### [address] [address] #### IBC, FERR #### [place] [address] FEOrdered By: SYSTEM SYSTEM on 2023 Iron [Mass/Vol] 75 ug/dL Normal 50-170 AO ADM SS Comment on above: Performed By: #### B 12, FOL #### [address] [address] #### IBC, FERR #### [address] [address] Jagruti 2023 Fasting N No Normal [facility] ([place]) Comment on above: Performed By: #### B 12, FOL #### [place] [address] #### IBC, FERR #### [place] [address] LABORATORYOrdered By: Alliso n Arnold on 2023 Fasting (LC) N No (11/29/23 12:00 PM) Normal AO Sendouts SS LABORATORYOrdered By: SYSTEM SYSTEM on 2023 GFR/1.73 sq M.predicted among blacks MDRD (S/P/Bld) [Vol rate/Area] 109 ml/min/1.73sqm Invalid Interpretation Code AO Chemistry S Comment on above: Interpretive Data: GFR Population mean for , Non- Americans Ages 20-29 = 116 mL/min/1.73 sq.m. Ages 30-39 = 107 mL/min/1.73 sq.m. Ages 40-49 = 99 mL/min/1.73 sq.m. Ages 50-59 = 93 mL/min/1.73 sq.m. Ages 60-69 = 85 mL/min/1.73 sq.m. Ages 70+ = 75 mL/min/1.73 sq.m. Chronic Kidney Disease: Less than 60 mL/min/1.73 square meters End Stage Renal Disease: Less than 15 mL/min/1.73 square meters GFR/1.73 sq M.predicted among non-blacks MDRD (S/P/Bld) [Vol rate/Area] 90 ml/min/1.73sqm Invalid Interpretation Code AO Chemistry S Comment on above: Interpretive Data: GFR Population mean for , Non- Americans Ages 20-29 = 116 mL/min/1.73 sq.m. Ages 30-39 = 107 mL/min/1.73 sq.m. Ages 40-49 = 99 mL/min/1.73 sq.m. Ages 50-59 = 93 mL/min/1.73 sq.m. Ages 60-69 = 85 mL/min/1.73 sq.m. Ages 70+ = 75 mL/min/1.73 sq.m. Chronic Kidney Disease: Less than 60 mL/min/1.73 square meters End Stage Renal Disease: Less than 15 mL/min/1.73 square meters Hemoglobin (Bld) [Mass/Vol] 11.8 G/dL Low 12.0 - 16.0 G/dL AO Workflow SS Platelets (Bld) [#/Vol] 388 103/mcL Normal 130 - 400 10^3/mcL AO Workflow SS RBC (Bld) [#/Vol] 4.13 106/mcL Low 4.20 - 5.4 0 10^6/mcL AO Workflow SS Urea nitrogen/Creatinine [Mass ratio] 17 ratio Normal 7 - 27 ratio AO ADM SS WBC (Bld) [#/Vol] 7.5 103/mcL Normal 4.6 - 10.8 10^3/mcL AO Workflow SS LABORATORYOrdered By: LABCOR P CONTRIBUTOR_SYSTEM on 2023 Intrinsic Factor Abs (LC) 1.0 Au/mL Invalid Interpretation Code AO Sendouts SS Comment on above: Result Comment: Perf ormed At: [facility] [address] [id number] Stan Gray MD Ph:[phone] No Panel InformationOrdered By: Bruce Castro on 10-19-2023 Free Triiodothyronine (T3) pg/dL 2.3 pg/mL 2.18-3.98 [facility] Serum or plasma thyroid stim ulating hormone (TSH) measurement (units/volume)Ordered By: Bruce Castro on 10-19-2023 TSH Qn 0.65 uIU/mL 0.358-3.74 [facility] Thin prep Papanicolaou smear with manual screeningOrdered By: Bruce Castro on 10-19-2023 Thin prep Papanicolaou smear with manual screening 1.04 ng/dL 0.76-1.46 [facility] Darwin 07-05-2023 Potassium [Moles/Vol] 4.3 mmol/L Normal 3.5-5.1 [facility] ([place]) Comment on above: Performed By: #### B 12, FOL #### [address] [address] #### IBC, FERR #### [place] [address] [place], [place] [address] METon 07-01-2023 Methylmalonic Acid 133 nmol/L Normal 0-378 [facility] ([place]) Comment on above: Result Comment: This test was developed and its performance characteristics determined by [facility]. It has not been cleared or approved by the Food and Drug Administration. Performed At: [facility] [id number] Stan Gray MD Ph:[phone] Performed By: #### Sidney 12, FOL #### [address] [address] #### IBC, FERR #### [address] [address] Absolute lymphocyte countOrd ered By: Андрей Chang on 06-25-2023 Lymphocytes Auto (Unsp spec) [#/Vol] 2.39 10*3/uL 0.83-4.51 [facility] Basophil percentageOrdered B y: Андрей Chang on 06-25-2023 Basophils/100 WBC (Bld) 0.5 % 0-1 [facility] Chloride [Moles/Vol] 106 mmol/L 98-107 [facility] Eosinophils/100 WBC (Bld) 3.9 % 0-5 [facility] Glucose [Mass/Vol] 105 mg/dL 74-106 [facility] Comment on above: Fasting Glucose resu lt from 100 to 125 mg/dL suggests IMPAIRED HOMEOSTASIS per A.D.A. criteria. Neutrophils (Bld) [#/Vol] 4.4 10*3/uL 2.0-7.7 [facility] Neutrophils/100 WBC (Bld) 55.6 % 47-70 [facility] Potassium [Moles/Vol] 3.3 mmol/L 3.5-5.1 [facility] Sodium [Moles/Vol] 142 mmol/L 136-145 [facility] WBC (Bld) [#/Vol] 7.9 10*3/uL 4.4-11.0 [facility] Blood erythrocytes count (nu mber/volume)Ordered By: Андрей Chang on 06-25-2023 RBC (Bld) [#/Vol] 4.14 10*6/uL 4.2-5.4 [facility] Blood hemoglobin measurement (mass/volume)Ordered By: Андрей Chang on 06-25-2023 Hemoglobin (Bld) [Mass/Vol] 11.2 g/dL 12.0-15.0 [facility] Blood lymphocytes/100 leukoc ytesOrdered By: Андрей Chang on 06-25-2023 Lymphocytes/100 WBC (Bld) 30.1 % 19-41 [facility] Blood monocytes/100 leukocyt esOrdered By: Андрей Chang on 06-25-2023 Monocytes/100 WBC (Bld) 9.5 % 0-10 [facility] Blood platelet mean volumeOr dered By: Андрей Chang on 06-25-2023 Platelet mean volume (Bld) [Entitic vol] 9.7 fL 6.2-12.0 [facility] CDIFFAOon 06-25-2023 Clostridium difficile toxin A/B PCR Negative Normal Negative [facility] ([place]) Comment on above: Performed By: #### B 12, FOL #### [facility] [address] [place] [address] #### IB, [facility] #### [address] [address] Clostridium difficile toxin A/B PCR Int Normal [facility] ([place]) Comment on above: Result Comment: Dominic lion C. difficile Negative result does not rule out the possibility of infection with toxigenic C. difficile. Alphonse C. difficile Assay results should not be used as the sole basis for diagnosis, treatment, or patient management decisions and should be interpreted in conjunction with other clinical and laboratory findings. See Below Performed By: #### B 12, FOL #### [facility] [address] [place] [address] #### IBC, FERR #### [facility] [address] [place], [place] [address] Determination of erythrocyte mean corpuscular volume (MCV)Ordered By: Андрей Chang on 06-25-2023 MCV (RBC) [Entitic vol] 89.4 fL 81-99 [facility] Hematocrit Auto (Bld) [Volum e fraction]Ordered By: Андрей Chang on 06-25-2023 Hematocrit (Bld) [Volume fraction] 37.0 % 37-47 [facility] LABORATORYOrdered By: Valeriy Campbell on 06-25-2023 C. difficile toxin A+B tcdA+tcdB genes ELVIA+probe Ql (Stl) Negative *NA* (06/25/23 10:09 AM) Invalid Interpretation Code Negative AO Auto Urine SS Clostridium difficile toxin A/B PCR Int Alphonse C. difficile Negative result does not rule out the possibility of infection with toxigenic C. difficile. Alphonse C. difficile Assay results should not be used as the sole basis for diagnosis, treatment, or patient management decisions and should be interpreted in conjunction with other clinical and laboratory findings. Invalid Interpretation Code AO Auto Urine SS Laboratory - Chemistry and C hemistry - challengeOrdered By: Андрей Chang on 06-25-2023 CO2 [Moles/Vol] 27.0 mmol/L 21.0-32.0 [facility] Urea nitrogen/Creatinine [Mass ratio] 9.9 mg/mg 10-20 [facility] Laboratory - Hematology and Cell countsOrdered By: Андрей Chang on 06-25-2023 Erythrocyte distribution width (RBC) [Entitic vol] 45.3 fL 35.1-43.9 [facility] Erythrocyte distribution width (RBC) [Ratio] 13.8 % 11.6-14.6 [facility] Immature granulocytes/100 WBC (Bld) 0.400 % 0.0-0.9 [facility] Comment on above: IG% - Immature Granu locytes (promyelocytes, myelocytes and metamyelocytes) > 1% indicates that a LEFT SHIFT is Present. MCH (RBC) [Entitic mass] 27.1 pg 27.0-32.0 [facility] Nucleated RBC/100 WBC (Bld) [Ratio] 0 % 0-5 [facility] MCHC Auto (RBC) [Mass/Vol]Or dered By: Андрей Chang on 06-25-2023 MCHC (RBC) [Mass/Vol] 30.3 g/dL 32-36 [facility] No Panel InformationOrdered By: Андрей Chang on 06-25-2023 Estimated Creatinine Clearance Calc 45.09 ml/min [facility] Estimated GFR (MDRD) Amer 90 mL/min >60 [facility] Comment on above: GFR Calc Estimated GFR (MDRD) Non-Af Amer 74 mL/min >60 [facility] Comment on above: Non- GFR Calc Platelets bldOrdered By: Maria Esther Chang on 06-25-2023 Platelets (Bld) [#/Vol] 379 10*3/uL 150-450 [facility] Serum or plasma calcium zac urement (mass/volume)Ordered By: Андрей Chang on 06-25-2023 Calcium [Mass/Vol] 8.3 mg/dL 8.5-10.1 [facility] Serum or plasma creatinine m easurement (mass/volume)Ordered By: Андрей Chang on 06-25-2023 Creatinine [Mass/Vol] 0.81 mg/dL 0.55-1.02 [facility] Comment on above: The validity of the calculated GFR & GFRAA in patients over 70 years has not been determined. Clinical correlation is essential. Serum or plasma urea nitroge n measurement (mass/volume)Ordered By: Андрей Chang on 06-25-2023 Urea nitrogen [Mass/Vol] 8 mg/dL 7-18 [facility] Thin prep Papanicolaou smear with manual screeningOrdered By: Андрей Chang on 06-25-2023 Thin prep Papanicolaou smear with manual screening 9 5-15 [facility] B12on 06-22-2023 Cobalamin (Vitamin B12) [Mass/Vol] 388 pg/mL Normal 211-911 [facility] ([place]) Comment on above: Performed By: #### B 12, FOL #### [place] [address] #### IBC, FERR #### [address] [address] Tressa 06-22-2023 Ferritin [Mass/Vol] 43.0 ng/mL Normal 8.0-252.0 [facility] ([place]) Comment on above: Performed By: #### B 12, FOL #### [place] [address] #### IBC, FERR #### [place] [address] FOLon 06-22-2023 Folate 39.27 ng/mL High 5.38-24.00 [facility] ([place]) Comment on above: Performed By: #### B 12, FOL #### [place] [address] #### IBC, FERR #### [place] [address] IBCon 06-22-2023 TIBC 347 mcg/dL Normal 250-450 [facility] ([place]) Comment on above: Performed By: #### B 12, FOL #### [place] [address] #### IBC, FERR #### [address] [address] LABORATORYOrdered By: SYSTEM SYSTEM on 06-22-2023 Cobalamin (Vitamin B12) [Mass/Vol] 388 pg/mL Normal 211 - 911 pg/mL ADM SS Ferritin [Mass/Vol] 43.0 ng/mL Normal 8.0 - 25 2.0 ng/mL AO ADM SS Folate [Mass/Vol] 39.27 ng/mL High 5.38 - 24.00 ng/mL ADM SS Iron binding capacity [Mass/Vol] 347 mcg/dL Normal 250 - 450 mcg/dL AO ADM SS TSH Qn 0.49 m[IU]/L Normal 0.36 - 3.74 mcIU/mL AO ADM SS LABORATORYOrdered By: Deanne Lind on 06-22-2023 Adenovirus 40+41 DNA ELVIA+non-probe Ql (Stl) Not Detected *NA* (06/22/23 9:56 AM) Invalid Interpretation Code Auto Microbiology GL SS Astrovirus subtypes 1-8 RNA ELVIA+non-probe Ql (Stl) Not Detected *NA* (06/22/23 9:56 AM) Invalid Interpretation Code Auto Microbiology GL SS C. cayetanensis DNA ELVIA+non-probe Ql (Stl) Not Detected *NA* (06/22/23 9:56 AM) Invalid Interpretation Code Auto Microbiology GL SS C. coli+jejuni+upsalien sis DNA ELVIA+non-probe Ql (Stl) Not Detected *NA* (06/22/23 9:56 AM) Invalid Interpretation Code Auto Microbiology GL SS Cryptosporidium sp DNA ELVIA+non-probe Ql (Stl) Not Detected *NA* (06/22/23 9:56 AM) Invalid Interpretation Code Auto Microbiology GL SS E. coli enteroaggregative Jose Alejandro plasmid aggR+aatA genes ELVIA+non-probe Ql (Stl) Not Detected *NA* (06/22/23 9:56 AM) Invalid Interpretation Code Auto Microbiology GL SS E. coli enteropathogenic eae gene ELVIA+non-probe Ql (Stl) Not Detected *NA* (06/22/23 9:56 AM) Invalid Interpretation Code Auto Microbiology GL SS E. coli enterotoxigenic ltA+st1a+st1b genes ELVIA+non-probe Ql (Stl) Not Detected *NA* (06/22/23 9:56 AM) Invalid Interpretation Code Auto Microbiology GL SS E. coli O157 DNA ELVIA+non-probe Ql (Stl) Not Applicable (06/22/23 9:56 AM) Normal Auto Microbiology GL SS E. coli stx1+stx2 genes ELVIA+non-probe Ql (Stl) Not Detected *NA* (06/22/23 9:56 AM) Invalid Interpretation Code Auto Microbiology GL SS E. histolytica DNA ELVIA+non-probe Ql (Stl) Not Detected *NA* (06/22/23 9:56 AM) Invalid Interpretation Code Auto Microbiology GL SS G. lamblia DNA ELVIA+non-probe Ql (Stl) Not Detected *NA* (06/22/23 9:56 AM) Invalid Interpretation Code Auto Microbiology GL SS Norovirus genogroup I+II RNA ELVIA+non-probe Ql (Stl) Not Detected *NA* (06/22/23 9:56 AM) Invalid Interpretation Code Auto Microbiology GL SS Plesiomonas shigelloides Not Detected *NA* (06/22/23 9:56 AM) Invalid Interpretation Code Auto Microbiology GL SS Rotavirus A RNA ELVIA+non-probe Ql (Stl) Not Detected *NA* (06/22/23 9:56 AM) Invalid Interpretation Code Auto Microbiology GL SS S. enterica+bongori DNA ELVIA+non-probe Ql (Stl) Not Detected *NA* (06/22/23 9:56 AM) Invalid Interpretation Code Auto Microbiology GL SS Sapovirus genogroups I+II+IV+V RNA ELVIA+non-probe Ql (Stl) Not Detected *NA* (06/22/23 9:56 AM) Invalid Interpretation Code Auto Microbiology GL SS Shigella species+EIEC invasion plasmid antigen H ipaH gene ELVIA+non-probe Ql (Stl) Not Detected *NA* (06/22/23 9:56 AM) Invalid Interpretation Code Auto Microbiology GL SS Stool GI Comment See Comment 1 (06/22/23 9:56 AM) Normal Auto Microbiology GL SS Comment on above: Interpretive Data: V irus, bacteria, and parasite nucleic acid may persist in vivo independently of organism viability. Negative Film Array GI panel results in the setting of clinical illness compatible with gastroenteritis may be due to infection by pathogens that are not detected by this test. False negatives may occur due to genetic variability in the region targeted by the primers. V. cholerae DNA ELVIA+non-probe Ql (Stl) Not Detected *NA* (06/22/23 9:56 AM) Invalid Interpretation Code Auto Microbiology GL SS V. cholerae+parahaemoly ticus+vulnificus DNA ELVIA+non-probe Ql (Stl) Not Detected *NA* (06/22/23 9:56 AM) Invalid Interpretation Code Auto Microbiology GL SS Y. enterocolitica DNA ELVIA+non-probe Ql (Stl) Not Detected *NA* (06/22/23 9:56 AM) Invalid Interpretation Code Auto Microbiology SS STGIPCRon 06-22-2023 Adenovirus F 40/41 Not detected Normal Not Detected [facility] ([place]) Comment on above: Performed By: #### S TGIPCR #### [address] [address] Astrovirus Not detected Normal Not Detected [facility] ([place]) Comment on above: Performed By: #### S TGIPCR #### [place] [id number] Campy (jejuni/coli/ups) Not detected Normal Not Detected [facility] ([place]) Comment on above: Performed By: #### S TGIPCR #### [place] [address] Cryptosporidium Not detected Normal Not Detected [facility] ([place]) Comment on above: Performed By: #### S TGIPCR #### [place] [address] Cyclospora Not detected Normal Not Detected [facility] ([place]) Comment on above: Performed By: #### S TGIPCR #### [place] [address] E. coli (ETEC) Not detected Normal Not Detected [facility] ([place]) Comment on above: Performed By: #### S TGIPCR #### [place] [address] E. coli O157 Not Applicable Normal Not Detected [facility] ([place]) Comment on above: Performed By: #### S TGIPCR #### [place] [address] Entamoeba histolytica Not detected Normal Not Detected [facility] ([place]) Comment on above: Performed By: #### S TGIPCR #### [place] [address] Enteroaggregative E. coli (EAEC) Not detected Normal Not Detected [facility] ([place]) Comment on above: Performed By: #### S TGIPCR #### [place] [id number] Enteropathogenic E. coli (EPEC) Not detected Normal Not Detected [facility] ([place]) Comment on above: Performed By: #### S TGIPCR #### [place] [address] Giardia lamblia Not detected Normal Not Detected [facility] ([place]) Comment on above: Performed By: #### S TGIPCR #### [place] [address] Norovirus GI/GII Not detected Normal Not Detected [facility] ([place]) Comment on above: Performed By: #### S TGIPCR #### [place] [address] Plesiomonas shigelloides Not detected Normal Not Detected [facility] ([place]) Comment on above: Performed By: #### S TGIPCR #### [place] [address] Rotavirus A Not detected Normal Not Detected [facility] ([place]) Comment on above: Performed By: #### S TGIPCR #### [place] [address] Salmonella species, stool Not detected Normal Not Detected [facility] ([place]) Comment on above: Performed By: #### S TGIPCR #### [place] [address] Sapovirus I,II,IV,V Not detected Normal Not Detected [facility] ([place]) Comment on above: Performed By: #### S TGIPCR #### [place] [address] Shig Tox E. coli (STEC) Not detected Normal Not Detected [facility] ([place]) Comment on above: Performed By: #### S TGIPCR #### [place] [address] Shigella/Enteroinvas esau E. coli (EIEC) Not detected Normal Not Detected [facility] ([place]) Comment on above: Performed By: #### S TGIPCR #### [place] [address] Stool GI Comment See Comment Normal [facility] ([place]) Comment on above: Result Comment: Viru s, bacteria, and parasite nucleic acid may persist in vivo independently of organism viability. Negative Film Array GI panel results in the setting of clinical illness compatible with gastroenteritis may be due to infection by pathogens that are not detected by this test. False negatives may occur due to genetic variability in the region targeted by the primers. Performed By: #### S TGIPCR #### [place] [address] Vibrio cholerae Not detected Normal Not Detected [facility] ([place]) Comment on above: Performed By: #### S TGIPCR #### [place] [address] Vibrio par/vul/chol Not detected Normal Not Detected [facility] ([place]) Comment on above: Performed By: #### S TGIPCR #### [place] [address] Yersinia enterocolitica Not detected Normal Not Detected [facility] ([place]) Comment on above: Performed By: #### S TGIPCR #### [place] [address] TSHon 06-22-2023 TSH Qn 0.49 m[IU]/L Normal 0.36-3.74 [facility] ([place]) Comment on above: Order Comment: cc Dr Estela Morris Performed By: #### Sidney 12, FOL #### [place] [address] #### IBC, FERR #### [place] [address] .Auto Diffon 05-31-2023 Basophil, Absolute 0.0 10 3/mcL Normal 0.0-0.2 [facility] ([place]) Comment on above: Performed By: #### Sidney 12, FOL #### [place] [address] #### IBC, FERR #### [place] [address] Basophils/100 WBC (Bld) 0.6 % Normal 0.0-2.5 [facility] ([place]) Comment on above: Performed By: #### Sidney 12, FOL #### [place] [address] #### IBC, FERR #### [place] [address] Eosinophil, Absolute 0.3 10 3/mcL Normal 0.0-0.4 [facility] ([place]) Comment on above: Performed By: #### B 12, FOL #### [place] [address] #### IBC, FERR #### [address] [address] Eosinophils/100 WBC (Bld) 4.0 % Normal 0.0-7.0 [facility] ([place]) Comment on above: Performed By: #### B 12, FOL #### [place] [address] #### IBC, FERR #### [address] [address] Lymphocyte, Absolute 2.2 10 3/mcL Normal 0.8-3.9 [facility] ([place]) Comment on above: Performed By: #### B 12, FOL #### [place] [address] #### IBC, FERR #### [address] [address] Lymphocytes/100 WBC (Bld) 25.5 % Normal 10.0-50.0 [facility] ([place]) Comment on above: Performed By: #### B 12, FOL #### [place] [address] #### IBC, FERR #### [address] [address] Monocyte, Absolute 0.8 10 3/mcL Normal 0.2-1.0 [facility] ([place]) Comment on above: Performed By: #### B 12, FOL #### [place] [address] #### IBC, FERR #### [address] [address] Monocytes/100 WBC (Bld) 9.6 % Normal 1.7-13.0 [facility] ([place]) Comment on above: Performed By: #### B 12, FOL #### [place] [address] #### IBC, FERR #### [address] [address] Neutrophils/100 WBC (Bld) 60.3 % Normal 37.0-80.0 [facility] ([place]) Comment on above: Performed By: #### B 12, FOL #### [place] [address] #### IBC, FERR #### [address] [address] .NEUABSon 05-31-2023 Neutrophil, Absolute 5.2 10 3/mcL Normal 2.9-6.2 [facility] ([place]) Comment on above: Performed By: #### B 12, FOL #### [place] [address] #### IBC, FERR #### [address] [address] CBCon 05-31-2023 Erythrocyte distribution width (RBC) [Ratio] 14.1 % Normal 11.5-14.5 [facility] ([place]) Comment on above: Performed By: #### B 12, FOL #### [place] [address] #### IBC, FERR #### [place] [id number] Hematocrit (Bld) [Volume fraction] 35.3 % Low 37.0-47.0 [facility] ([place]) Comment on above: Performed By: #### B 12, FOL #### [place] [address] #### IBC, FERR #### [address] [address] Hgb 11.6 G/dL Low 12.0-16.0 [facility] ([place]) Comment on above: Performed By: #### B 12, FOL #### [place] [address] #### IBC, FERR #### [place] [id number] MCH (RBC) [Entitic mass] 27.9 pg Normal 27.0-31.2 [facility] ([place]) Comment on above: Performed By: #### B 12, FOL #### [place] [address] #### IBC, FERR #### [address] [address] MCHC 32.8 G/dL Low 33.0-37.0 [facility] ([place]) Comment on above: Performed By: #### B 12, FOL #### [place] [address] #### IBC, FERR #### [address] [address] MCV (RBC) [Entitic vol] 85.1 fL Normal 80.0-94.0 [facility] ([place]) Comment on above: Performed By: #### Sidney 12, FOL #### [place] [address] #### IBC, FERR #### [address] [address] Platelet 416 10 3/mcL High 130-400 [facility] ([place]) Comment on above: Performed By: #### B 12, FOL #### [place] [address] #### IBC, FERR #### [address] [address] Platelet mean volume (Bld) [Entitic vol] 7.7 fL Normal 7.4-10.4 [facility] ([place]) Comment on above: Performed By: #### B 12, FOL #### [place] [address] #### IBC, FERR #### [address] [address] RBC 4.14 10 6/mcL Low 4.20-5.40 [facility] ([place]) Comment on above: Performed By: #### B 12, FOL #### [place] [address] #### IBC, FERR #### [place] [address] [place], [place] [address] WBC 8.7 10 3/mcL Normal 4.6-10.8 [facility] ([place]) Comment on above: Performed By: #### B 12, FOL #### [facility] [address] [place] [address] #### IBC, FERR #### [place] [address] [place], [place] [address] FEon 05-31-2023 Iron [Mass/Vol] 56 ug/dL Normal 50-170 [facility] ([place]) Comment on above: Performed By: #### B 12, FOL #### [address] [address] #### IBC, FERR #### [address] [address] LABORATORYOrdered By: SYSTEM SYSTEM on 05-31-2023 Basophil, Absolute 0.0 103/mcL Invalid Interpretation Code 0.0 - 0.2 10^3/mcL AO Workflow SS Basophils/100 WBC (Bld) 0.6 % Invalid Interpretation Code 0.0 - 2.5 % AO Workflow SS Eosinophil, Absolute 0.3 103/mcL Invalid Interpretation Code 0.0 - 0.4 10^3/mcL AO Workflow SS Eosinophils/100 WBC (Bld) 4.0 % Invalid Interpretation Code 0.0 - 7.0 % AO Workflow SS Erythrocyte distribution width (RBC) [Ratio] 14.1 % Invalid Interpretation Code 11.5 - 14.5 % AO Workflow SS Hematocrit (Bld) [Volume fraction] 35.3 % Invalid Interpretation Code 37.0 - 47.0 % AO Workflow SS Hemoglobin (Bld) [Mass/Vol] 11.6 G/dL Invalid Interpretation Code 12.0 - 16.0 G/dL AO Workflow SS Iron [Mass/Vol] 56 ug/dL Invalid Interpretation Code 50 - 170 mcg/dL AO ADM SS Lymphocyte, Absolute 2.2 103/mcL Invalid Interpretation Code 0.8 - 3.9 10^3/mcL AO Workflow SS Lymphocytes/100 WBC (Bld) 25.5 % Invalid Interpretation Code 10.0 - 50.0 % AO Workflow SS MCH (RBC) [Entitic mass] 27.9 pg Invalid Interpretation Code 27.0 - 31.2 pg AO Workflow SS MCHC 32.8 G/dL Invalid Interpretation Code 33.0 - 37.0 G/dL AO Workflow SS MCV (RBC) [Entitic vol] 85.1 fL Invalid Interpretation Code 80.0 - 94.0 fL AO Workflow SS Monocyte, Absolute 0.8 103/mcL Invalid Interpretation Code 0.2 - 1.0 10^3/mcL AO Workflow SS Monocytes/100 WBC (Bld) 9.6 % Invalid Interpretation Code 1.7 - 13.0 % AO Workflow SS Neutrophil, Absolute 5.2 103/mcL Invalid Interpretation Code 2.9 - 6.2 10^3/mcL AO Workflow SS Neutrophils/100 WBC (Bld) 60.3 % Invalid Interpretation Code 37.0 - 80.0 % AO Workflow SS Platelet mean volume (Bld) [Entitic vol] 7.7 fL Invalid Interpretation Code 7.4 - 10.4 fL AO Workflow SS Platelets (Bld) [#/Vol] 416 103/mcL Invalid Interpretation Code 130 - 400 10^3/mcL AO Workflow SS RBC (Bld) [#/Vol] 4.14 106/mcL Invalid Interpretation Code 4.20 - 5.40 10^6/mcL AO Workflow SS WBC (Bld) [#/Vol] 8.7 103/mcL Invalid Interpretation Code 4.6 - 10.8 10^3/mcL AO Workflow SS LABORATORYOrdered By: Yang Benítez on 04-22-2023 Albumin DL <= 20 mg/L (U) [Mass/Vol] 407 mcg/dL Invalid Interpretation Code AO ADM SS Albumin/Creatinine DL <= 20 mg/L (U) [Mass ratio] 6 mcg/mg Invalid Interpretation Code 0 - 30 mcg/mg AO ADM SS Creatinine (U) [Mass/Vol] 68.8 mg/dL Invalid Interpretation Code 28.0 - 117.0 mg/dL AO ADM SS MALBRon 04-22-2023 U Creatinine 68.8 mg/dL Normal 28.0-117.0 [facility] ([place]) Comment on above: Performed By: #### B 12, FOL #### [address] [address] #### IBC, FERR #### [address] [address] U Microalb 407 mcg/dL Normal [facility] ([place]) Comment on above: Performed By: #### B 12, FOL #### [address] [address] #### IBC, FERR #### [address] [address] U Ratio Alb/Cre 6 mcg/mg Normal 0-30 [facility] ([place]) Comment on above: Performed By: #### B 12, FOL #### [address] [address] #### IBC, FERR #### [address] [address] .Auto Diffon 04-18-2023 Basophil, Absolute 0.0 10 3/mcL Normal 0.0-0.2 [facility] [facility] ([place]) Comment on above: Performed By: #### T SH, ADIFF, LIPID, CBC, FE, ANEU #### [address] [address] Basophils/100 WBC (Bld) 0.6 % Normal 0.0-2.5 [facility] ([place]) Comment on above: Performed By: #### T SH, ADIFF, LIPID, CBC, FE, ANEU #### [address] [address] Eosinophil, Absolute 0.2 10 3/mcL Normal 0.0-0.4 [facility] ([place]) Comment on above: Performed By: #### T SH, ADIFF, LIPID, CBC, FE, ANEU #### [address] [address] Eosinophils/100 WBC (Bld) 1.9 % Normal 0.0-7.0 [facility] ([place]) Comment on above: Performed By: #### T SH, ADIFF, LIPID, CBC, FE, ANEU #### [address] [address] Lymphocyte, Absolute 2.0 10 3/mcL Normal 0.8-3.9 [facility] ([place]) Comment on above: Performed By: #### T SH, ADIFF, LIPID, CBC, FE, ANEU #### [address] [address] Lymphocytes/100 WBC (Bld) 24.1 % Normal 10.0-50.0 [facility] ([place]) Comment on above: Performed By: #### T SH, ADIFF, LIPID, CBC, FE, ANEU #### [address] [address] Monocyte, Absolute 0.7 10 3/mcL Normal 0.2-1.0 [facility] ([place]) Comment on above: Performed By: #### T SH, ADIFF, LIPID, CBC, FE, ANEU #### [address] [address] Monocytes/100 WBC (Bld) 8.1 % Normal 1.7-13.0 [facility] ([place]) Comment on above: Performed By: #### T SH, ADIFF, LIPID, CBC, FE, ANEU #### [address] [address] Neutrophils/100 WBC (Bld) 65.3 % Normal 37.0-80.0 [facility] ([place]) Comment on above: Performed By: #### T SH, ADIFF, LIPID, CBC, FE, ANEU #### [address] [address] .NEUABSon 04-18-2023 Neutrophil, Absolute 5.4 10 3/mcL Normal 2.9-6.2 [facility] ([place]) Comment on above: Performed By: #### T SH, ADIFF, LIPID, CBC, FE, ANEU #### [address] [address] CBCon 04-18-2023 Erythrocyte distribution width (RBC) [Ratio] 14.2 % Normal 11.5-14.5 [facility] ([place]) Comment on above: Performed By: #### T SH, ADIFF, LIPID, CBC, FE, ANEU #### [address] [address] Hematocrit (Bld) [Volume fraction] 37.6 % Normal 37.0-47.0 [facility] ([place]) Comment on above: Performed By: #### T SH, ADIFF, LIPID, CBC, FE, ANEU #### [address] [address] Hgb 12.6 G/dL Normal 12.0-16.0 [facility] ([place]) Comment on above: Performed By: #### T SH, ADIFF, LIPID, CBC, FE, ANEU #### [address] [address] MCH (RBC) [Entitic mass] 28.4 pg Normal 27.0-31.2 [facility] ([place]) Comment on above: Performed By: #### T SH, ADIFF, LIPID, CBC, FE, ANEU #### [address] [address] MCHC 33.5 G/dL Normal 33.0-37.0 [facility] ([place]) Comment on above: Performed By: #### T SH, ADIFF, LIPID, CBC, FE, ANEU #### [address] [address] MCV (RBC) [Entitic vol] 84.6 fL Normal 80.0-94.0 [facility] ([place]) Comment on above: Performed By: #### T SH, ADIFF, LIPID, CBC, FE, ANEU #### [address] [address] Platelet 439 10 3/mcL High 130-400 [facility] ([place]) Comment on above: Performed By: #### T SH, ADIFF, LIPID, CBC, FE, ANEU #### [address] [address] Platelet mean volume (Bld) [Entitic vol] 7.0 fL Low 7.4-10.4 [facility] ([place]) Comment on above: Performed By: #### T SH, ADIFF, LIPID, CBC, FE, ANEU #### [address] [address] RBC 4.44 10 6/mcL Normal 4.20-5.40 [facility] ([place]) Comment on above: Performed By: #### T SH, ADIFF, LIPID, CBC, FE, ANEU #### [place] [address] [place], [place] [address] WBC 8.3 10 3/mcL Normal 4.6-10.8 [facility] ([place]) Comment on above: Performed By: #### T SH, ADIFF, LIPID, CBC, FE, ANEU #### [place] [address] [place], [place] [address] FEon 04-18-2023 Iron [Mass/Vol] 52 ug/dL Normal 50-170 [facility] ([place]) Comment on above: Performed By: #### B 12, FOL #### [address] [address] #### IBC, FERR #### [address] [address] LABORATORYOrdered By: SYSTEM SYSTEM on 04-18-2023 Basophil, Absolute 0.0 103/mcL Invalid Interpretation Code 0.0 - 0.2 10^3/mcL AO Workflow SS Basophils/100 WBC (Bld) 0.6 % Invalid Interpretation Code 0.0 - 2.5 % AO Workflow SS Eosinophil, Absolute 0.2 103/mcL Invalid Interpretation Code 0.0 - 0.4 10^3/mcL AO Workflow SS Eosinophils/100 WBC (Bld) 1.9 % Invalid Interpretation Code 0.0 - 7.0 % AO Workflow SS Erythrocyte distribution width (RBC) [Ratio] 14.2 % Invalid Interpretation Code 11.5 - 14.5 % AO Workflow SS Hematocrit (Bld) [Volume fraction] 37.6 % Invalid Interpretation Code 37.0 - 47.0 % AO Workflow SS Hemoglobin (Bld) [Mass/Vol] 12.6 G/dL Invalid Interpretation Code 12.0 - 16.0 G/dL AO Workflow SS Iron [Mass/Vol] 52 ug/dL Invalid Interpretation Code 50 - 170 mcg/dL AO ADM SS Lymphocyte, Absolute 2.0 103/mcL Invalid Interpretation Code 0.8 - 3.9 10^3/mcL AO Workflow SS Lymphocytes/100 WBC (Bld) 24.1 % Invalid Interpretation Code 10.0 - 50.0 % AO Workflow SS MCH (RBC) [Entitic mass] 28.4 pg Invalid Interpretation Code 27.0 - 31.2 pg AO Workflow SS MCHC 33.5 G/dL Invalid Interpretation Code 33.0 - 37.0 G/dL AO Workflow SS MCV (RBC) [Entitic vol] 84.6 fL Invalid Interpretation Code 80.0 - 94.0 fL AO Workflow SS Monocyte, Absolute 0.7 103/mcL Invalid Interpretation Code 0.2 - 1.0 10^3/mcL AO Workflow SS Monocytes/100 WBC (Bld) 8.1 % Invalid Interpretation Code 1.7 - 13.0 % AO Workflow SS Neutrophil, Absolute 5.4 103/mcL Invalid Interpretation Code 2.9 - 6.2 10^3/mcL AO Workflow SS Neutrophils/100 WBC (Bld) 65.3 % Invalid Interpretation Code 37.0 - 80.0 % AO Workflow SS Platelet mean volume (Bld) [Entitic vol] 7.0 fL Invalid Interpretation Code 7.4 - 10.4 fL AO Workflow SS Platelets (Bld) [#/Vol] 439 103/mcL Invalid Interpretation Code 130 - 400 10^3/mcL AO Workflow SS RBC (Bld) [#/Vol] 4.44 106/mcL Invalid Interpretation Code 4.20 - 5.40 10^6/mcL AO Workflow SS TSH Qn 0.55 m[IU]/L Invalid Interpretation Code 0.36 - 3.74 mcIU/mL AO ADM SS WBC (Bld) [#/Vol] 8.3 103/mcL Invalid Interpretation Code 4.6 - 10.8 10^3/mcL AO Workflow SS LABORATORYOrdered By: Joleen Hansen on 04-18-2023 Cholesterol [Mass/Vol] 176 mg/dL Invalid Interpretation Code 0 - 200 mg/dL AO ADM SS Comment on above: Interpretive Data: C holesterol Reference Interval: Less than 200 Desirable 200-239 Borderline high risk 240 and above High risk Cholesterol in HDL [Mass/Vol] 65 mg/dL Invalid Interpretation Code 40 - 60 mg/dL AO ADM SS Cholesterol in LDL [Mass/Vol] 101 mg/dL Invalid Interpretation Code 0 - 130 mg/dL AO ADM SS Triglyceride [Mass/Vol] 48 mg/dL Invalid Interpretation Code 0 - 150 mg/dL AO ADM SS Comment on above: Interpretive Data: T riglyceride Reference Interval: Less than 150 Normal 150-199 Borderline high risk 200-499 High risk 500 or higher Very high risk LIPIDon 04-18-2023 Cholesterol [Mass/Vol] 176 mg/dL Normal 0-200 [facility] ([place]) Comment on above: Result Comment: Chol esterol Reference Interval: Less than 200 Desirable 200-239 Borderline high risk 240 and above High risk Performed By: #### B 12, FOL #### [place] [address] #### IBC, FERR #### [address] [address] Cholesterol in HDL [Mass/Vol] 65 mg/dL High 40-60 [facility] ([place]) Comment on above: Performed By: #### B 12, FOL #### [place] [address] #### IBC, FERR #### [address] [address] Cholesterol in LDL [Mass/Vol] 101 mg/dL Normal 0-130 [facility] ([place]) Comment on above: Performed By: #### B 12, FOL #### [place] [address] #### IBC, FERR #### [address] [address] Triglyceride [Mass/Vol] 48 mg/dL Normal 0-150 [facility] ([place]) Comment on above: Result Comment: Trig lyceride Reference Interval: Less than 150 Normal 150-199 Borderline high risk 200-499 High risk 500 or higher Very high risk Performed By: #### B 12, FOL #### [place] [address] #### IBC, FERR #### [address] [address] TSHon 04-18-2023 TSH Qn 0.55 m[IU]/L Normal 0.36-3.74 [facility] ([place]) Comment on above: Performed By: #### B 12, FOL #### [place] [address] #### IBC, FERR #### [address] [address] [place], [place] [address] No Panel InformationOrdered By: Jorgito Reid on 03-09-2023 Thyroid Stimulating Hormone (TSH) 0.19 uIU/mL 0.358-3.74 [facility] Absolute lymphocyte countOrd ered By: Tevin Vargas on 02-25-2023 Lymphocytes Auto (Unsp spec) [#/Vol] 1.76 10*3/uL 0.83-4.51 [facility] Basophil percentageOrdered B y: Tevin Vargas on 02-25-2023 Basophils/100 WBC (Bld) 0.3 % 0-1 [facility] Bilirubin [Mass/Vol] 0.40 mg/dL 0.20-1.00 [facility] Comment on above: For patients on eltr ombopag therapy, use of Dimension [place] TBIL is not recommended. Chloride [Moles/Vol] 106 mmol/L 98-107 [facility] Eosinophils/100 WBC (Bld) 1.2 % 0-5 [facility] Glucose [Mass/Vol] 107 mg/dL 74-106 [facility] Comment on above: Fasting Glucose resu lt from 100 to 125 mg/dL suggests IMPAIRED HOMEOSTASIS per A.D.A. criteria. Neutrophils (Bld) [#/Vol] 3.6 10*3/uL 2.0-7.7 [facility] Neutrophils/100 WBC (Bld) 60.8 % 47-70 [facility] Potassium [Moles/Vol] 3.7 mmol/L 3.5-5.1 [facility] Protein [Mass/Vol] 7.6 g/dL 6.4-8.2 [facility] Sodium [Moles/Vol] 140 mmol/L 136-145 [facility] WBC (Bld) [#/Vol] 6.0 10*3/uL 4.4-11.0 [facility] Blood erythrocytes count (nu mber/volume)Ordered By: Tevin Vargas on 02-25-2023 RBC (Bld) [#/Vol] 4.57 10*6/uL 4.2-5.4 [facility] Blood hemoglobin measurement (mass/volume)Ordered By: Tevin Vargas on 02-25-2023 Hemoglobin (Bld) [Mass/Vol] 12.9 g/dL 12.0-15.0 [facility] Blood lymphocytes/100 leukoc ytesOrdered By: Tevin Vargas on 02-25-2023 Lymphocytes/100 WBC (Bld) 29.5 % 19-41 [facility] Blood monocytes/100 leukocyt esOrdered By: Tevin Vargas on 02-25-2023 Monocytes/100 WBC (Bld) 8.0 % 0-10 [facility] Blood platelet mean volumeOr dered By: Tevin Vargas on 02-25-2023 Platelet mean volume (Bld) [Entitic vol] 8.7 fL 6.2-12.0 [facility] Determination of erythrocyte mean corpuscular volume (MCV)Ordered By: Tevin Vargas on 02-25-2023 MCV (RBC) [Entitic vol] 85.1 fL 81-99 [facility] Hematocrit Auto (Bld) [Volum e fraction]Ordered By: Tevin Vargas on 02-25-2023 Hematocrit (Bld) [Volume fraction] 38.9 % 37-47 [facility] Laboratory - Chemistry and C hemistry - challengeOrdered By: Tevin Vargas on 02-25-2023 ALP [Catalytic activity/Vol] 101 U/L 45-117 [facility] ALT [Catalytic activity/Vol] 24 U/L 13-56 [facility] CO2 [Moles/Vol] 29.0 mmol/L 21.0-32.0 [facility] Globulin (S) [Mass/Vol] 3.9 g/dL 2.2-4.2 [facility] Urea nitrogen/Creatinine [Mass ratio] 13.0 mg/mg 10-20 [facility] Laboratory - Hematology and Cell countsOrdered By: Tevin Vargas on 02-25-2023 Erythrocyte distribution width (RBC) [Entitic vol] 42.5 fL 35.1-43.9 [facility] Erythrocyte distribution width (RBC) [Ratio] 13.7 % 11.6-14.6 [facility] Immature granulocytes/100 WBC (Bld) 0.200 % 0.0-0.9 [facility] Comment on above: IG% - Immature Granu locytes (promyelocytes, myelocytes and metamyelocytes) > 1% indicates that a LEFT SHIFT is Present. MCH (RBC) [Entitic mass] 28.2 pg 27.0-32.0 [facility] Nucleated RBC/100 WBC (Bld) [Ratio] 0 % 0-5 [facility] MCHC Auto (RBC) [Mass/Vol]Or dered By: Tevin Vargas on 02-25-2023 MCHC (RBC) [Mass/Vol] 33.2 g/dL 32-36 [facility] No Panel InformationOrdered By: Tevin Vargas on 02-25-2023 Estimated Creatinine Clearance Calc 36.53 ml/min [facility] Estimated GFR (MDRD) Amer 107 mL/min >60 [facility] Comment on above: GFR Calc Estimated GFR (MDRD) Non-Af Amer 89 mL/min >60 [facility] Comment on above: Non- GFR Calc Troponin I High Sensitivity 4 pg/mL 3.0-54.0 [facility] Comment on above: Please Note: New Jennifer t Units and Gender Specific Reference Ranges. For more information see Policy Stat Procedure [place] High Sensitivity Troponin (TNIH) and attachments. Platelets bldOrdered By: Michele Vargas on 02-25-2023 Platelets (Bld) [#/Vol] 401 10*3/uL 150-450 [facility] Serum or plasma albumin zac urement (mass/volume)Ordered By: Tevin Vargas on 02-25-2023 Albumin [Mass/Vol] 3.7 g/dL 3.2-5.0 [facility] Serum or plasma albumin/glob ulin mass ratioOrdered By: Tevin Vargas on 02-25-2023 Albumin/Globulin [Mass ratio] 0.9 {ratio} 0.9-2.4 [facility] Serum or plasma calcium zac urement (mass/volume)Ordered By: Tevin Vargas on 02-25-2023 Calcium [Mass/Vol] 9.0 mg/dL 8.5-10.1 [facility] Serum or plasma creatinine m easurement (mass/volume)Ordered By: Tevin Vargas on 02-25-2023 Creatinine [Mass/Vol] 0.69 mg/dL 0.55-1.02 [facility] Comment on above: The validity of the calculated GFR & GFRAA in patients over 70 years has not been determined. Clinical correlation is essential. Serum or plasma urea nitroge n measurement (mass/volume)Ordered By: Tevin Vargas on 02-25-2023 Urea nitrogen [Mass/Vol] 9 mg/dL 7-18 [facility] Thin prep Papanicolaou smear with manual screeningOrdered By: Tevin Vargas on 02-25-2023 Thin prep Papanicolaou smear with manual screening 19 U/L 15-37 [facility] Thin prep Papanicolaou smear with manual screening 5 5-15 [facility] Absolute lymphocyte countOrd ered By: Андрей Chang on 02-10-2023 Lymphocytes Auto (Unsp spec) [#/Vol] 4.42 10*3/uL 0.83-4.51 [facility] Basophil percentageOrdered B y: Андрей Chang on 02-10-2023 Basophils/100 WBC (Bld) 0.7 % 0-1 [facility] Chloride [Moles/Vol] 104 mmol/L 98-107 [facility] Eosinophils/100 WBC (Bld) 5.1 % 0-5 [facility] Glucose [Mass/Vol] 132 mg/dL 74-106 [facility] Comment on above: Fasting Glucose resu lt greater than or equal to 126 mg/dL suggests DIABETES MELLITUS per A.D.A. criteria. Neutrophils (Bld) [#/Vol] 4.1 10*3/uL 2.0-7.7 [facility] Neutrophils/100 WBC (Bld) 40.5 % 47-70 [facility] Potassium [Moles/Vol] 3.6 mmol/L 3.5-5.1 [facility] Sodium [Moles/Vol] 140 mmol/L 136-145 [facility] WBC (Bld) [#/Vol] 10.1 10*3/uL 4.4-11.0 [facility] Blood erythrocytes count (nu mber/volume)Ordered By: Андрей Chang on 02-10-2023 RBC (Bld) [#/Vol] 4.55 10*6/uL 4.2-5.4 [facility] Blood hemoglobin measurement (mass/volume)Ordered By: Андрей Chang on 02-10-2023 Hemoglobin (Bld) [Mass/Vol] 12.7 g/dL 12.0-15.0 [facility] Blood lymphocytes/100 leukoc ytesOrdered By: Андрей Chang on 02-10-2023 Lymphocytes/100 WBC (Bld) 43.6 % 19-41 [facility] Blood monocytes/100 leukocyt esOrdered By: Андрей Chang on 02-10-2023 Monocytes/100 WBC (Bld) 9.8 % 0-10 [facility] Blood platelet mean volumeOr dered By: Андрей Chang on 02-10-2023 Platelet mean volume (Bld) [Entitic vol] 9.3 fL 6.2-12.0 [facility] Determination of erythrocyte mean corpuscular volume (MCV)Ordered By: Андрей Chang on 02-10-2023 MCV (RBC) [Entitic vol] 89.0 fL 81-99 [facility] Hematocrit Auto (Bld) [Volum e fraction]Ordered By: Андрей Chang on 02-10-2023 Hematocrit (Bld) [Volume fraction] 40.5 % 37-47 [facility] Laboratory - Chemistry and C hemistry - challengeOrdered By: Андрей Chang on 02-10-2023 CO2 [Moles/Vol] 29.0 mmol/L 21.0-32.0 [facility] Urea nitrogen/Creatinine [Mass ratio] 11.3 mg/mg 10-20 [facility] Laboratory - Hematology and Cell countsOrdered By: Андрей Chang on 02-10-2023 Erythrocyte distribution width (RBC) [Entitic vol] 46.1 fL 35.1-43.9 [facility] Erythrocyte distribution width (RBC) [Ratio] 14.0 % 11.6-14.6 [facility] Immature granulocytes/100 WBC (Bld) 0.300 % 0.0-0.9 [facility] Comment on above: IG% - Immature Granu locytes (promyelocytes, myelocytes and metamyelocytes) > 1% indicates that a LEFT SHIFT is Present. MCH (RBC) [Entitic mass] 27.9 pg 27.0-32.0 [facility] Nucleated RBC/100 WBC (Bld) [Ratio] 0 % 0-5 [facility] MCHC Auto (RBC) [Mass/Vol]Or dered By: Андрей Chang on 02-10-2023 MCHC (RBC) [Mass/Vol] 31.4 g/dL 32-36 [facility] No Panel InformationOrdered By: Андрей Chang on 02-10-2023 Estimated Creatinine Clearance Calc 36.53 ml/min [facility] Estimated GFR (MDRD) Amer 92 mL/min >60 [facility] Comment on above: GFR Calc Estimated GFR (MDRD) Non-Af Amer 76 mL/min >60 [facility] Comment on above: Non- GFR Calc Troponin I High Sensitivity 6 pg/mL 3.0-54.0 [facility] Comment on above: Please Note: New Jennifer t Units and Gender Specific Reference Ranges. For more information see Policy Stat Procedure [place] High Sensitivity Troponin (TNIH) and attachments. Platelets bldOrdered By: Maria Esther Chang on 02-10-2023 Platelets (Bld) [#/Vol] 440 10*3/uL 150-450 [facility] Serum or plasma calcium zac urement (mass/volume)Ordered By: Андрей Chang on 02-10-2023 Calcium [Mass/Vol] 8.9 mg/dL 8.5-10.1 [facility] Serum or plasma creatinine m easurement (mass/volume)Ordered By: Андрей Chang on 02-10-2023 Creatinine [Mass/Vol] 0.79 mg/dL 0.55-1.02 [facility] Comment on above: The validity of the calculated GFR & GFRAA in patients over 70 years has not been determined. Clinical correlation is essential. Serum or plasma urea nitroge n measurement (mass/volume)Ordered By: Андрей Chang on 02-10-2023 Urea nitrogen [Mass/Vol] 9 mg/dL - [facility] Thin prep Papanicolaou smear with manual screeningOrdered By: Андрей Chang on 02-10-2023 Thin prep Papanicolaou smear with manual screening 01 26- [facility] Tressa 02-03-2023 Ferritin [Mass/Vol] 72.0 ng/mL Normal 8.0-252.0 [facility] ([place]) Comment on above: Performed By: #### F [facility] #### [address] [address] FESon 02-03-2023 Iron [Mass/Vol] 46 ug/dL Low 50-170 [facility] ([place]) Comment on above: Performed By: #### F ERR, FES #### [place] [id number] Iron Sat 13 % Normal [facility] ([place]) Comment on above: Performed By: #### F ERR, FES #### [place] [id number] TIBC 367 mcg/dL Normal 250-450 [facility] ([place]) Comment on above: Performed By: #### F ERR, FES #### [place] [address] LABORATORYOrdered By: SYSTEM SYSTEM on 02-03-2023 Ferritin [Mass/Vol] 72.0 ng/mL Invalid Interpretation Code 8.0 - 252.0 ng/mL AO ADM SS Iron [Mass/Vol] 46 ug/dL Invalid Interpretation Code 50 - 170 mcg/dL AO ADM SS Iron binding capacity [Mass/Vol] 367 mcg/dL Invalid Interpretation Code 250 - 450 mcg/dL AO ADM SS Iron Sat 13 1 Invalid Interpretation Code AO ADM SS .Auto Diffon 01-31-2023 Basophil, Absolute 0.1 10 3/mcL Normal 0.0-0.2 [facility] ([place]) Comment on above: Performed By: #### B 12, FOL #### [place] [address] #### IBC, FERR #### [address] [address] Basophils/100 WBC (Bld) 0.8 % Normal 0.0-2.5 [facility] ([place]) Comment on above: Performed By: #### B 12, FOL #### [place] [id number] #### IBC, FERR #### [address] [address] Eosinophil, Absolute 0.5 10 3/mcL High 0.0-0.4 [facility] ([place]) Comment on above: Performed By: #### B 12, FOL #### [address] [address] #### IBC, FERR #### [address] [address] Eosinophils/100 WBC (Bld) 7.0 % Normal 0.0-7.0 [facility] ([place]) Comment on above: Performed By: #### B 12, FOL #### [address] [address] #### IBC, FERR #### [address] [address] Lymphocyte, Absolute 1.7 10 3/mcL Normal 0.8-3.9 [facility] ([place]) Comment on above: Performed By: #### B 12, FOL #### [place] [address] #### IBC, FERR #### [address] [address] Lymphocytes/100 WBC (Bld) 25.2 % Normal 10.0-50.0 [facility] ([place]) Comment on above: Performed By: #### B 12, FOL #### [place] [address] #### IBC, FERR #### [address] [address] Monocyte, Absolute 0.5 10 3/mcL Normal 0.2-1.0 [facility] ([place]) Comment on above: Performed By: #### B 12, FOL #### [place] [address] #### IBC, FERR #### [address] [address] Monocytes/100 WBC (Bld) 7.9 % Normal 1.7-13.0 [facility] ([place]) Comment on above: Performed By: #### B 12, FOL #### [place] [address] #### IBC, FERR #### [address] [address] Neutrophils/100 WBC (Bld) 59.1 % Normal 37.0-80.0 [facility] ([place]) Comment on above: Performed By: #### B 12, FOL #### [place] [address] #### IBC, FERR #### [address] [address] .NEUABSon 01-31-2023 Neutrophil, Absolute 3.9 10 3/mcL Normal 2.9-6.2 [facility] ([place]) Comment on above: Performed By: #### Sidney 12, FOL #### [place] [address] #### IBC, FERR #### [place] [address] CBCon 01-31-2023 Erythrocyte distribution width (RBC) [Ratio] 14.2 % Normal 11.5-14.5 [facility] ([place]) Comment on above: Performed By: #### Sidney 12, FOL #### [place] [address] #### IBC, FERR #### [place] [address] Hematocrit (Bld) [Volume fraction] 35.5 % Low 37.0-47.0 [facility] ([place]) Comment on above: Performed By: #### [place] 12, FOL #### [place] [address] #### IBC, FERR #### [place] [address] Hgb 11.7 G/dL Low 12.0-16.0 [facility] ([place]) Comment on above: Performed By: #### B 12, FOL #### [place] [address] #### IBC, FERR #### [place] [address] MCH (RBC) [Entitic mass] 28.2 pg Normal 27.0-31.2 [facility] ([place]) Comment on above: Performed By: #### B 12, FOL #### [place] [address] #### IBC, FERR #### [address] [address] MCHC 32.9 G/dL Low 33.0-37.0 [facility] ([place]) Comment on above: Performed By: #### B 12, FOL #### [place] [address] #### IBC, FERR #### [address] [address] MCV (RBC) [Entitic vol] 85.6 fL Normal 80.0-94.0 [facility] ([place]) Comment on above: Performed By: #### B 12, FOL #### [place] [address] #### IBC, FERR #### [address] [address] Platelet 393 10 3/mcL Normal 130-400 [facility] ([place]) Comment on above: Performed By: #### [place] 12, FOL #### [place] [address] #### IBC, FERR #### [address] [address] Platelet mean volume (Bld) [Entitic vol] 7.4 fL Normal 7.4-10.4 [facility] ([place]) Comment on above: Performed By: #### B 12, FOL #### [place] [address] #### IBC, FERR #### [address] [address] RBC 4.14 10 6/mcL Low 4.20-5.40 [facility] ([place]) Comment on above: Performed By: #### B 12, FOL #### [place] [id number] #### IBC, FERR #### [address] [address] WBC 6.6 10 3/mcL Normal 4.6-10.8 [facility] ([place]) Comment on above: Performed By: #### B 12, FOL #### [address] [address] #### IBC, FERR #### [facility] [address] [place], [place] [address] LABORATORYOrdered By: SYSTEM SYSTEM on 01-31-2023 Basophil, Absolute 0.1 103/mcL Invalid Interpretation Code 0.0 - 0.2 10^3/mcL AO Workflow SS Basophils/100 WBC (Bld) 0.8 % Invalid Interpretation Code 0.0 - 2.5 % AO Workflow SS Eosinophil, Absolute 0.5 103/mcL Invalid Interpretation Code 0.0 - 0.4 10^3/mcL AO Workflow SS Eosinophils/100 WBC (Bld) 7.0 % Invalid Interpretation Code 0.0 - 7.0 % AO Workflow SS Erythrocyte distribution width (RBC) [Ratio] 14.2 % Invalid Interpretation Code 11.5 - 14.5 % AO Workflow SS Hematocrit (Bld) [Volume fraction] 35.5 % Invalid Interpretation Code 37.0 - 47.0 % AO Workflow SS Hemoglobin (Bld) [Mass/Vol] 11.7 G/dL Invalid Interpretation Code 12.0 - 16.0 G/dL AO Workflow SS Lymphocyte, Absolute 1.7 103/mcL Invalid Interpretation Code 0.8 - 3.9 10^3/mcL AO Workflow SS Lymphocytes/100 WBC (Bld) 25.2 % Invalid Interpretation Code 10.0 - 50.0 % AO Workflow SS MCH (RBC) [Entitic mass] 28.2 pg Invalid Interpretation Code 27.0 - 31.2 pg AO Workflow SS MCHC 32.9 G/dL Invalid Interpretation Code 33.0 - 37.0 G/dL AO Workflow SS MCV (RBC) [Entitic vol] 85.6 fL Invalid Interpretation Code 80.0 - 94.0 fL AO Workflow SS Monocyte, Absolute 0.5 103/mcL Invalid Interpretation Code 0.2 - 1.0 10^3/mcL AO Workflow SS Monocytes/100 WBC (Bld) 7.9 % Invalid Interpretation Code 1.7 - 13.0 % AO Workflow SS Neutrophil, Absolute 3.9 103/mcL Invalid Interpretation Code 2.9 - 6.2 10^3/mcL AO Workflow SS Neutrophils/100 WBC (Bld) 59.1 % Invalid Interpretation Code 37.0 - 80.0 % AO Workflow SS Platelet mean volume (Bld) [Entitic vol] 7.4 fL Invalid Interpretation Code 7.4 - 10.4 fL AO Workflow SS Platelets (Bld) [#/Vol] 393 103/mcL Invalid Interpretation Code 130 - 400 10^3/mcL AO Workflow SS RBC (Bld) [#/Vol] 4.14 106/mcL Invalid Interpretation Code 4.20 - 5.40 10^6/mcL AO Workflow SS WBC (Bld) [#/Vol] 6.6 103/mcL Invalid Interpretation Code 4.6 - 10.8 10^3/mcL AO Workflow SS .Auto Diffon 12-14-2022 Basophil, Absolute 0.0 10 3/mcL Normal 0.0-0.2 [facility] ([place]) Comment on above: Performed By: #### B 12, FOL #### [place] [address] #### IBC, FERR #### [address] [address] Basophils/100 WBC (Bld) 0.8 % Normal 0.0-2.5 [facility] ([place]) Comment on above: Performed By: #### B 12, FOL #### [place] [address] #### IBC, FERR #### [address] [address] Eosinophil, Absolute 0.3 10 3/mcL Normal 0.0-0.4 [facility] ([place]) Comment on above: Performed By: #### B 12, FOL #### [place] [address] #### IBC, FERR #### [address] [address] Eosinophils/100 WBC (Bld) 5.0 % Normal 0.0-7.0 [facility] ([place]) Comment on above: Performed By: #### B 12, FOL #### [place] [address] #### IBC, FERR #### [address] [address] Lymphocyte, Absolute 1.8 10 3/mcL Normal 0.8-3.9 [facility] ([place]) Comment on above: Performed By: #### B 12, FOL #### [address] [address] #### IBC, FERR #### [address] [address] Lymphocytes/100 WBC (Bld) 27.8 % Normal 10.0-50.0 [facility] ([place]) Comment on above: Performed By: #### B 12, FOL #### [place] [address] #### IBC, FERR #### [address] [address] Monocyte, Absolute 0.5 10 3/mcL Normal 0.2-1.0 [facility] ([place]) Comment on above: Performed By: #### B 12, FOL #### [place] [address] #### IBC, FERR #### [address] [address] Monocytes/100 WBC (Bld) 7.1 % Normal 1.7-13.0 [facility] ([place]) Comment on above: Performed By: #### B 12, FOL #### [place] [address] #### IBC, FERR #### [address] [address] Neutrophils/100 WBC (Bld) 59.3 % Normal 37.0-80.0 [facility] ([place]) Comment on above: Performed By: #### B 12, FOL #### [address] [address] #### IBC, FERR #### [address] [address] .GFRon 12-14-2022 GFR 109 ml/min/1.73sqm Normal [facility] ([place]) Comment on above: Result Comment: GFR Population mean for , Non- Americans Ages 20-29 = 116 mL/min/1.73 sq.m. Ages 30-39 = 107 mL/min/1.73 sq.m. Ages 40-49 = 99 mL/min/1.73 sq.m. Ages 50-59 = 93 mL/min/1.73 sq.m. Ages 60-69 = 85 mL/min/1.73 sq.m. Ages 70+ = 75 mL/min/1.73 sq.m. Chronic Kidney Disease: Less than 60 mL/min/1.73 square meters End Stage Renal Disease: Less than 15 mL/min/1.73 square meters Performed By: #### Sidney 12, FOL #### [address] [address] #### IBC, FERR #### [address] [address] GFR Non- 90 ml/min/1.73sqm Normal [facility] ([place]) Comment on above: Result Comment: GFR Population mean for , Non- Americans Ages 20-29 = 116 mL/min/1.73 sq.m. Ages 30-39 = 107 mL/min/1.73 sq.m. Ages 40-49 = 99 mL/min/1.73 sq.m. Ages 50-59 = 93 mL/min/1.73 sq.m. Ages 60-69 = 85 mL/min/1.73 sq.m. Ages 70+ = 75 mL/min/1.73 sq.m. Chronic Kidney Disease: Less than 60 mL/min/1.73 square meters End Stage Renal Disease: Less than 15 mL/min/1.73 square meters Performed By: #### Sidney 12, FOL #### [place] [id number] #### IBC, FERR #### [address] [address] .NEUABSon 12-14-2022 Neutrophil, Absolute 3.9 10 3/mcL Normal 2.9-6.2 [facility] ([place]) Comment on above: Performed By: #### Sidney 12, FOL #### [address] [address] #### IBC, FERR #### [address] [address] BMPon 12-14-2022 BUN/Creatinine Ratio 15 ratio Normal 7-27 [facility] ([place]) Comment on above: Performed By: #### B 12, FOL #### [place] [address] #### IBC, FERR #### [address] [address] Calcium [Mass/Vol] 9.1 mg/dL Normal 8.4-10.2 [facility] ([place] Comment on above: Performed By: #### B 12, FOL #### [place] [address] #### IBC, FERR #### [address] [address] Chloride [Moles/Vol] 105 mmol/L Normal 98-107 [facility] ([place]) Comment on above: Performed By: #### B 12, FOL #### [place] [address] #### IBC, FERR #### [address] [address] CO2 [Moles/Vol] 34 mmol/L High 23-31 [facility] ([place]) Comment on above: Performed By: #### B 12, FOL #### [place] [address] #### IBC, FERR #### [address] [address] Creatinine [Mass/Vol] 0.65 mg/dL Normal 0.55-1.02 [facility] ([place]) Comment on above: Performed By: #### B 12, FOL #### [place] [address] #### IBC, FERR #### [address] [address] Electrolyte Balance 4.0 mEq/L Normal 4.0-15.0 [facility] ([place]) Comment on above: Performed By: #### B 12, FOL #### [address] [address] #### IBC, FERR #### [address] [address] Glucose [Mass/Vol] 89 mg/dL Normal 83-110 [facility] [place] Comment on above: Performed By: #### B 12, FOL #### [place] [address] #### IBC, FERR #### [address] [address] Potassium [Moles/Vol] 4.7 mmol/L Normal 3.5-5.1 [facility] ([place]) Comment on above: Performed By: #### B 12, FOL #### [place] [address] #### IBC, FERR #### [address] [address] Sodium [Moles/Vol] 143 mmol/L Normal 136-145 [facility] [place] Comment on above: Performed By: #### B 12, FOL #### [place] [address] #### IBC, FERR #### [address] [address] Urea nitrogen [Mass/Vol] 10 mg/dL Normal 7-18 [facility] ([place]) Comment on above: Performed By: #### B 12, FOL #### [place] [address] #### IBC, FERR #### [address] [address] CBCon 12-14-2022 Erythrocyte distribution width (RBC) [Ratio] 14.8 % High 11.5-14.5 [facility] ([place]) Comment on above: Performed By: #### B 12, FOL #### [place] [address] #### IBC, FERR #### [address] [address] Hematocrit (Bld) [Volume fraction] 36.6 % Low 37.0-47.0 [facility] ([place]) Comment on above: Performed By: #### B 12, FOL #### [place] [address] #### IBC, FERR #### [place] [address] Hgb 12.1 G/dL Normal 12.0-16.0 [facility] ([place]) Comment on above: Performed By: #### B 12, FOL #### [place] [address] #### IBC, FERR #### [place] [address] MCH (RBC) [Entitic mass] 27.7 pg Normal 27.0-31.2 [facility] ([place]) Comment on above: Performed By: #### B 12, FOL #### [place] [address] #### IBC, FERR #### [place] [address] MCHC 33.0 G/dL Normal 33.0-37.0 [facility] ([place]) Comment on above: Performed By: #### B 12, FOL #### [place] [address] #### IBC, FERR #### [address] [address] MCV (RBC) [Entitic vol] 84.0 fL Normal 80.0-94.0 [facility] ([place]) Comment on above: Performed By: #### B 12, FOL #### [place] [address] #### IBC, FERR #### [place] [address] Platelet 445 10 3/mcL High 130-400 [facility] ([place]) Comment on above: Performed By: #### B 12, FOL #### [place] [address] #### IBC, FERR #### [address] [address] Platelet mean volume (Bld) [Entitic vol] 7.3 fL Low 7.4-10.4 [facility] ([place]) Comment on above: Performed By: #### B 12, FOL #### [place] [address] #### IBC, FERR #### [place] [address] RBC 4.36 10 6/mcL Normal 4.20-5.40 [facility] ([place]) Comment on above: Performed By: #### B 12, FOL #### [place] [address] #### IBC, FERR #### [place] [address] WBC 6.6 10 3/mcL Normal 4.6-10.8 [facility] ([place]) Comment on above: Performed By: #### B 12, FOL #### [place] [address] #### IBC, FERR #### [place] [address] FT4on 12-14-2022 Free T4 [Mass/Vol] 0.99 ng/dL Normal 0.76-1.46 [facility] [place] Comment on above: Performed By: #### B 12, FOL #### [place] [address] #### IBC, FERR #### [place] [address] LIPIDon 12-14-2022 Cholesterol [Mass/Vol] 229 mg/dL High 0-200 [facility] ([place]) Comment on above: Result Comment: Chol esterol Reference Interval: Less than 200 Desirable 200-239 Borderline high risk 240 and above High risk Performed By: #### B 12, FOL #### [address] [address] #### IBC, FERR #### [address] [address] Cholesterol in HDL [Mass/Vol] 78 mg/dL High 40-60 [facility] ([place]) Comment on above: Performed By: #### B 12, FOL #### [place] [address] #### IBC, FERR #### [address] [address] Cholesterol in LDL [Mass/Vol] 139 mg/dL High 0-130 [facility] ([place]) Comment on above: Performed By: #### B 12, FOL #### [place] [address] #### IBC, FERR #### [address] [address] Triglyceride [Mass/Vol] 61 mg/dL Normal 0-150 [facility] ([place]) Comment on above: Result Comment: Trig lyceride Reference Interval: Less than 150 Normal 150-199 Borderline high risk 200-499 High risk 500 or higher Very high risk Performed By: #### B 12, FOL #### [place] [address] #### IBC, FERR #### [address] [address] T3on 12-14-2022 Total T3 100 ng/dL Normal 60-181 [facility] ([place]) Comment on above: Performed By: #### B 12, FOL #### [place] [address] #### IBC, FERR #### [address] [address] THYABon 12-14-2022 anti-Thyroid Peroxidase <28 Normal 0-60 [facility] ([place]) Comment on above: Result Comment: No te - New Reference Range in effect 20 Performed By: #### B 12, FOL #### [place] [address] #### IBC, FERR #### [address] [address] Thyroglobulin Ab Qn [IU]/mL Normal 15-60 [facility] ([place]) Comment on above: Result Comment: No te - New Reference Range in effect 20 Performed By: #### B 12, FOL #### [place] [address] #### IBC, FERR #### [address] [address] TSHon 12-14-2022 TSH Qn 0.49 m[IU]/L Normal 0.36-3.74 [facility] ([place]) Comment on above: Performed By: #### B 12, FOL #### [place] [address] #### IBC, FERR #### [address] [address] LABORATORYOrdered By: SYSTEM SYSTEM on 11-03-2022 TSH Qn 0.32 m[IU]/L Invalid Interpretation Code 0.36 - 3.74 mcIU/mL AO ADM SS LABORATORYOrdered By: SYSTEM SYSTEM on 10-20-2022 Calcium [Mass/Vol] 9.5 mg/dL Invalid Interpretation Code 8.4 - 10.2 mg/dL AO ADM SS Chloride [Moles/Vol] 104 mmol/L Invalid Interpretation Code 98 - 107 mmol/L AO ADM SS CO2 [Moles/Vol] 32 mmol/L Invalid Interpretation Code 23 - 31 mmol/L AO ADM SS Creatinine [Mass/Vol] 0.63 mg/dL Invalid Interpretation Code 0.55 - 1.02 mg/dL AO ADM SS Electrolyte Balance 8.0 mEq/L Invalid Interpretation Code 4.0 - 15.0 mEq/L AO ADM SS GFR 113 ml/min/1.73sqm Invalid Interpretation Code AO Chemistry S GFR Non- 93 ml/min/1.73sqm Invalid Interpretation Code AO Chemistry S Glucose [Mass/Vol] 94 mg/dL Invalid Interpretation Code 83 - 110 mg/dL AO ADM SS Potassium [Moles/Vol] 3.9 mmol/L Invalid Interpretation Code 3.5 - 5.1 mmol/L AO ADM SS Sodium [Moles/Vol] 144 mmol/L Invalid Interpretation Code 136 - 145 mmol/L AO ADM SS TSH Qn 0.29 m[IU]/L Invalid Interpretation Code 0.36 - 3.74 mcIU/mL AO ADM SS Urea nitrogen [Mass/Vol] 9 mg/dL Invalid Interpretation Code 7 - 18 mg/dL AO ADM SS Urea nitrogen/Creatinine [Mass ratio] 14 ratio Invalid Interpretation Code 7 - 27 ratio AO ADM SS LABORATORYOrdered By: Tariq Batista on 11-06-2021 Cholesterol [Mass/Vol] 211 mg/dL Invalid Interpretation Code 0 - 200 mg/dL AO ADM SS Cholesterol in HDL [Mass/Vol] 73 mg/dL Invalid Interpretation Code 40 - 60 mg/dL AO ADM SS Cholesterol in LDL [Mass/Vol] 126 mg/dL Invalid Interpretation Code 0 - 130 mg/dL AO ADM SS Glucose [Mass/Vol] 87 mg/dL Invalid Interpretation Code 83 - 110 mg/dL AO ADM SS Triglyceride [Mass/Vol] 61 mg/dL Invalid Interpretation Code 0 - 150 mg/dL AO ADM SS TSH Qn 0.27 m[IU]/L Invalid Interpretation Code 0.36 - 3.74 mcIU/mL AO ADM SS Vit. D 25-Hydroxy 35.8 ng/mL Invalid Interpretation Code AO ADM SS Vital Signs Date Time Vital Sign Value Performing Clinician Jaiden mosley 12-06-2024 09:21-0400 Body height 152.[address] Yaakov Morris DO Work Phone: [facility] 12-06-2024 09:21-0400 Body mass index (BMI) [Ratio] 33.8 kg/m2 Dr. Yaakov Morris DO Work Phone: [facility] 12-06-2024 09:21-0400 Body weight 78.[address] Yaakov Morris DO Work Phone: [facility] 12-06-2024 09:21-0400 Diastolic blood pressure 76 mm[Hg] Dr. Yaakov Morris DO Work Phone: [facility] 12-06-2024 09:21-0400 Heart rate 61 /min Dr. Yaakov Morris DO Work Phone: [facility] 12-06-2024 09:21-0400 SaO2% (BldA) [Mass fraction] 96 % Dr. Yaakov Morris DO Work Phone: [facility] 12-06-2024 09:21-0400 Systolic blood pressure 126 mm[Hg] Dr. Yaakov Morris DO Work Phone: [facility] 12-03-2024 14:21-0400 Diastolic blood pressure 75 mm[Hg] Dr. Yaakov Morris DO Work Phone: [facility] 12-03-2024 14:21-0400 Heart rate 67 /min Dr. Yaakov Morris DO Work Phone: [facility] 12-03-2024 14:21-0400 Respiratory rate 18 /min Dr. Yaakov Morris DO Work Phone: [facility] 12-03-2024 14:21-0400 Systolic blood pressure 137 mm[Hg] Dr. Yaakov Morris DO Work Phone: [facility] 11-22-2024 08:19-0400 Body mass index (BMI) [Ratio] 33.5 kg/m2 Dr. Yaakov Morris DO Work Phone: [facility] 11-22-2024 08:19-0400 Body weight 78.[address] Yaakov Morris DO Work Phone: [facility] 11-22-2024 08:19-0400 Diastolic blood pressure 75 mm[Hg] Dr. Yaakov Morris DO Work Phone: [facility] 11-22-2024 08:19-0400 Heart rate 66 /min Dr. Yaakov Morris DO Work Phone: [facility] 11-22-2024 08:19-0400 Respiratory rate 18 /min Dr. Yaakov Morris DO Work Phone: [facility] 11-22-2024 08:19-0400 Systolic blood pressure 125 mm[Hg] Dr. Yaakov Morris DO Work Phone: [facility] 06-25-2023 06:04-0500 Body temperature 98 [degF] Dr. Yaakov Morris Work Phone: [facility] 06-25-2023 06:04-0500 Heart rate 89 /min Dr. Yaakov Morris Work Phone: [facility] 06-25-2023 06:04-0500 Respiratory rate 16 /min Dr. Yaakov Morris Work Phone: [facility] 06-25-2023 06:04-0500 SaO2% (BldA) [Mass fraction] 98 % Dr. Yaakov Morris Work Phone: [facility] 06-25-2023 03:03-0500 Body height 152.[address] Yaakov Morris Work Phone: [facility] 06-25-2023 03:03-0500 Body mass index (BMI) [Ratio] 29.3 kg/m2 Dr. Yaakov Morris Work Phone: [facility] 06-25-2023 03:03-0500 Body weight 68.[address] Yaakov Morris Work Phone: [facility] 06-25-2023 03:03-0500 Diastolic blood pressure 94 mm[Hg] Dr. Yaakov Morris Work Phone: [facility] 06-25-2023 03:03-0500 Systolic blood pressure 168 mm[Hg] Dr. Yaakov Morris Work Phone: [facility] 06-07-2023 13:29-0500 Body mass index (BMI) [Ratio] 27.7 kg/m2 Dr. Yaakov Morris Work Phone: [facility] 06-07-2023 13:29-0500 Body weight 64.[address] Yaakov Morris Work Phone: [facility] 06-07-2023 13:29-0500 Diastolic blood pressure 88 mm[Hg] Dr. Yaakov Morris Work Phone: [facility] 06-07-2023 13:29-0500 Heart rate 67 /min Dr. Yaakov Morris Work Phone: [facility] 06-07-2023 13:29-0500 Respiratory rate 16 /min Dr. Yaakov Morris Work Phone: [facility] 06-07-2023 13:29-0500 Systolic blood pressure 157 mm[Hg] Dr. Yaakov Morris Work Phone: [facility] 06-06-2023 10:33-0500 Body mass index (BMI) [Ratio] 27.9 kg/m2 Dr. Yaakov Morris Work Phone: [facility] 06-06-2023 10:33-0500 Body temperature 97.8 [degF] Dr. Yaakov Morris Work Phone: [facility] 06-06-2023 10:33-0500 Body weight 64.[address] Yaakov Morris Work Phone: [facility] 06-06-2023 10:33-0500 Diastolic blood pressure 69 mm[Hg] Dr. Yaakov Morris Work Phone: [facility] 06-06-2023 10:33-0500 Heart rate 58 /min Dr. Yaakov Morris Work Phone: [facility] 06-06-2023 10:33-0500 Respiratory rate 15 /min Dr. Yaakov Morris Work Phone: [facility] 06-06-2023 10:33-0500 SaO2% (BldA) [Mass fraction] 98 % Dr. Yaakov Morris Work Phone: [facility] 06-06-2023 10:33-0500 Systolic blood pressure 116 mm[Hg] Dr. Yaakov Morris Work Phone: [facility] 03-09-2023 10:01-0400 Body height 152.[address] Yaakov Morris Work Phone: [facility] 03-09-2023 10:01-0400 Body mass index (BMI) [Ratio] 28.1 kg/m2 Dr. Yaakov Morris Work Phone: [facility] 03-09-2023 10:01-0400 Body weight 65.[address] Yaakov Morris Work Phone: [facility] 03-09-2023 10:01-0400 Diastolic blood pressure 79 mm[Hg] Dr. Yaakov Morris Work Phone: [facility] 03-09-2023 10:01-0400 Heart rate 65 /min Dr. Yaakov Morris Work Phone: [facility] 03-09-2023 10:01-0400 Respiratory rate 16 /min Dr. Yaakov Morris Work Phone: [facility] 03-09-2023 10:01-0400 Systolic blood pressure 131 mm[Hg] Dr. Yaakov Morris Work Phone: [facility] 02-25-2023 13:10-0400 Diastolic blood pressure 107 mm[Hg] Dr. Yaakov Morris Work Phone: [facility] 02-25-2023 13:10-0400 Heart rate 77 /min Dr. Yaakov Morris Work Phone: [facility] 02-25-2023 13:10-0400 Respiratory rate 17 /min Dr. Yaakov Morris Work Phone: [facility] 02-25-2023 13:10-0400 Systolic blood pressure 160 mm[Hg] Dr. Yaakov Morris Work Phone: [facility] 02-25-2023 11:11-0400 SaO2% (BldA) [Mass fraction] 100 % Dr. Yaakov Morris Work Phone: [facility] 02-25-2023 10:46-0400 Body mass index (BMI) [Ratio] 28.3 kg/m2 Dr. Yaakov Morris Work Phone: [facility] 02-25-2023 10:46-0400 Body temperature 96.8 [degF] Dr. Yaakov Morris Work Phone: [facility] 02-25-2023 10:46-0400 Body weight 65.[address] Yaakov Morris Work Phone: [facility] 02-10-2023 05:57-0400 Diastolic blood pressure 75 mm[Hg] [facility] 02-10-2023 05:57-0400 Heart rate 98 /min [facility] 02-10-2023 05:57-0400 Respiratory rate 17 /min [facility] 02-10-2023 05:57-0400 SaO2% (BldA) [Mass fraction] 100 % [facility] 02-10-2023 05:57-0400 Systolic blood pressure 120 mm[Hg] [facility] 02-10-2023 04:28-0400 Body height 152.4 cm [facility] 02-10-2023 04:28-0400 Body mass index (BMI) [Ratio] 29.5 kg/m2 [facility] 02-10-2023 04:28-0400 Body temperature 98.2 [degF] [facility] 02-10-2023 04:28-0400 Body weight 68.6 kg [facility] 06-23-2022 09:16-0500 Body height 157.[address] Yaakov Morris Work Phone: [facility] Work Phone: 05-28-2022 09:42-0400 Body mass index (BMI) [Ratio] 28 kg/m2 Dr. Yaakov Morris Work Phone: [facility] Work Phone: 05-28-2022 09:42-0400 Body temperature 96.3 [degF] Dr. Yaakov Morris Work Phone: [facility] Work Phone: 05-28-2022 09:42-0400 Body weight 69.[address] Yaakov Morris Work Phone: [facility] Work Phone: 05-28-2022 09:42-0400 Diastolic blood pressure 96 mm[Hg] Dr. Yaakov Morris Work Phone: [facility] Work Phone: 05-28-2022 09:42-0400 Heart rate 79 /min Dr. Yaakov Morris Work Phone: [facility] Work Phone: 05-28-2022 09:42-0400 Respiratory rate 18 /min Dr. Yaakov Morris Work Phone: [facility] Work Phone: 05-28-2022 09:42-0400 SaO2% (BldA) [Mass fraction] 95 % Dr. Yaakov Morris Work Phone: [facility] Work Phone: 05-28-2022 09:42-0400 Systolic blood pressure 178 mm[Hg] Dr. Yaakov Morris Work Phone: [facility] Work Phone: Encounters Encounter Date Encounter Type Care Provider Facility Start: 05-24-2025 End: 05-24-2025 ambulatory Yaakov Replaced By [facility] Facility:[facility] Start: 05-16-2025 End: 05-16-2025 ambulatory YAAKOV MORRIS Facility:[facility] [place] Start: 05-16-2025 End: 05-16-[address] YAAKOV MORRIS DO [facility] Start: 04-09-2025 End: 04-09-[address] Yaakov Morris DO Work Phone: -Laboratory Start: 04-09-2025 End: 04-09-2025 Patient encounter procedure Megan Hernandez RESIDENTIAL SALES REPRESENTATIVE-C -Laboratory Work Phone: Start: 04-09-2025 End: 04-09-2025 ambulatory Megan Hernandez Facility:[facility] Start: 03-21-2025 End: 03-21-[address] Yaakov Morris DO Work Phone: -Physical Therapy Start: 03-21-2025 End: 03-21-[address] Yaakov Morris DO -Physical Therapy Work Phone: Start: 03-21-[address] Yaakov Morris DO -Physical Therapy Work Phone: Start: 01-23-2025 End: 01-23-[address] Yaakov Morris DO Work Phone: -Cardiovascular Services Start: 01-23-2025 End: 01-23-[address] Yaakov Morris DO -Cardiovascular Services Work Phone: Start: 01-23-2025 End: 01-23-2025 ambulatory Yaakov Morris Facility:[facility] Start: 01-11-2025 End: 01-15-2025 ambulatory YAAKOV MORRIS Facility:[facility] [place] Start: 01-11-2025 End: 01-15-[address] YAAKOV MORRIS DO [facility] Start: 01-11-2025 End: 01-11-2025 ambulatory YAAKOV MORRIS Facility:[facility] Start: 01-11-2025 End: 01-11-[address] YAAKOV MORRIS DO [facility] Start: 12-10-2024 End: 12-10-[address] Bruce Castro MD -Laboratory [facility] Start: 12-10-2024 End: 12-10-2024 ambulatory Yaakov Morris Facility:[facility] Start: 12-06-2024 End: 12-06-[address] Bruce Castro MD -[facility] Work Phone: Start: 12-06-2024 End: 12-06-[address] Yaakov Morris DO Work Phone: [facility] Work Phone: Start: 12-03-2024 End: 12-03-[address] Jorgito Reid MD -[facility] Work Phone: Start: 12-03-2024 End: 12-03-2024 ambulatory Yaakov Morris Facility:[facility] Start: 11-22-2024 End: 11-22-[address] Jorgito Reid MD -[facility] Work Phone: Start: 11-22-2024 End: 11-22-2024 ambulatory Yaakov Morris Facility:[facility] Start: 09-13-2024 End: 09-13-[address] Bruce Castro MD -Laboratory Work Phone: Start: 09-13-2024 End: 09-13-2024 ambulatory Bruce Castro Facility:[facility] Start: 08-02-2024 End: 08-02-2024 ambulatory Bruce Facility:[facility] Start: 06-14-2024 End: 06-14-2024 ambulatory Yaakov Morris Facility:[facility] Start: 06-04-2024 End: 06-04-2024 ambulatory Bruce Castro Facility:[facility] Start: 05-21-2024 End: 05-21-2024 ambulatory YAAKOV MORRIS Facility:[facility] [place] Start: 05-21-2024 End: 05-21-[address] YAAKOV MORRIS DO [facility] Start: 2023 End: 12-04-[address] YAAKOV MORRIS DO Facility:[facility] Start: 2023 End: 12-03-[address] YAAKOV MORRIS DO [facility] Start: 10-19-2023 End: 10-19-2023 ambulatory [facility] Work Phone: Start: 10-19-2023 End: 10-19-2023 Patient encounter procedure [facility]-Laboratory Work Phone: Start: 07-05-2023 End: 07-10-2023 ambulatory YUMIKO MAST STOCK ASSOCIATE-CONTENT PRODUCTION SPECIALIST Facility:[facility] Start: 06-25-2023 End: 06-30-[address] HARSHA KARIMI DO Facility:[facility] Start: 06-25-2023 End: 06-29-[address] HARSHA KARIMI DO [facility] Start: 06-25-2023 End: 06-25-2023 Emergency department patient visit Dr. Yaakov Morris Work Phone: [facility]-Emergency Department Work Phone: Start: 06-22-2023 End: 06-27-2023 ambulatory YUMIKO MAST STOCK ASSOCIATE-CONTENT PRODUCTION SPECIALIST Facility:[facility] Start: 06-22-2023 End: 06-26-2023 Outreach Lab YUMIKO MAST STOCK ASSOCIATE-CONTENT PRODUCTION SPECIALIST [facility] Start: 06-22-2023 End: 06-22-[address] YAAKOV MORRIS DO [facility] Start: 06-07-2023 End: 06-07-[address] Yaakov Morris Work Phone: [facility] Work Phone: Start: 06-06-2023 End: 06-06-[address] Yaakov Morris Work Phone: [facility] Work Phone: Start: 05-31-2023 End: 06-05-[address] YAAKOV MORRIS DO Facility:[facility] Start: 05-31-2023 End: 06-04-[address] YAAKOV MORRIS DO [facility] Start: 05-12-2023 End: 05-12-[address] Yaakov Morris Work Phone: [facility] Work Phone: Start: 05-12-2023 End: 05-12-[address] Yaakov Morris Work Phone: [facility]-Outpatient Breast Imaging Work Phone: Start: 04-22-2023 End: 04-27-[address] YAAKOV MORRIS DO Facility:[facility] Start: 04-22-2023 End: 04-26-[address] YAAKOV MORRIS DO [facility] Start: 04-18-2023 End: 04-19-[address] YAAKOV MORRIS DO Facility:[facility] Start: 04-18-2023 End: 04-18-[address] YAAKOV MORRIS DO [facility] Start: 04-08-2023 Non-patient / Non-visit Dr. Yaakov Morris Work Phone: [facility] Work Phone: Start: 04-06-2023 Non-patient / Non-visit Dr. Yaakov Morris Work Phone: [facility] Work Phone: Start: 04-06-2023 End: 04-06-[address] Yaakov Morris Work Phone: [facility] Work Phone: Start: 04-06-2023 End: 04-06-[address] Yaakov Morris Work Phone: [facility]-Cardiovascular Services Work Phone: Start: 03-09-2023 End: 03-09-[address] Yaakov Morris Work Phone: [facility] Work Phone: Start: 03-09-2023 End: 03-09-[address] Yaakov Morris Work Phone: [facility]-Laboratory Work Phone: Start: 03-09-2023 End: 03-09-[address] Yaakov Morris Work Phone: [facility] Work Phone: Start: 02-25-2023 End: 02-25-2023 Emergency department patient visit Dr. Yaakov Morris Work Phone: [facility]-Emergency Department Work Phone: Start: 02-10-2023 End: 02-10-2023 Emergency department patient visit [facility]-Emergency Department Work Phone: Start: 02-03-2023 End: 02-04-[address] YAAKOV MORRIS DO Facility:[facility] Start: 02-03-2023 End: 02-03-[address] YAAKOV MORRIS DO [facility] Start: 01-31-2023 End: 02-01-[address] YAAKOV MORRIS DO Facility:[facility] Start: 01-31-2023 End: 01-31-[address] YAAKOV MORRIS DO [facility] Start: 12-14-2022 End: 12-15-[address] YAAKOV MORRIS DO Facility:[facility] Start: 11-03-2022 End: 11-03-2022 Patient encounter procedure YUMIKO MAST STOCK ASSOCIATE-CONTENT PRODUCTION SPECIALIST [facility] Start: 10-20-2022 End: 10-20-2022 Patient encounter procedure YUMIKO MAST STOCK ASSOCIATE-CONTENT PRODUCTION SPECIALIST [facility] Start: 06-23-2022 End: 06-23-[address] Yaakov Morris Work Phone: [facility] Work Phone: Start: 06-23-2022 End: 06-23-[address] Yaakov Morris Work Phone: [facility]-Outpatient Bone Densitometry Start: 05-28-2022 End: 05-28-[address] Yaakov Morris Work Phone: [facility] Start: 04-23-2022 End: 04-23-[address] Yaakov Morris Work Phone: [facility]-Outpatient Breast Imaging Start: 11-18-2021 End: 11-18-2021 Patient encounter procedure [facility]-Ultrasound, [facility] Start: 11-06-2021 End: 11-06-[address] YAAKOV MORRIS DO [facility] Procedures Date Procedure Procedure Detail Performing Clinician Start: 12-10-2024 Vitamin D, 25-hydrox y measurement Dr. aYakov Morris DO Work Phone: Comment on above: Vitamin D StatusDefi ciency: <20 ng/mL (50nmol/L)Insufficiency: 20-30 ng/mL (50-75 nmol/L)Sufficiency: 30-100 ng/mL (75-250 nmol/L)Toxicity: >100 ng/mL (>250 nmol/L) Start: 05-12-2023 Screening mammography Mechelle Morris Work Phone: Start: 04-06-2023 Cardiovascular stres s test using pharmacologic stress agent Dr. Yaakov Morris Work Phone: Start: 02-25-2023 Plain chest X-ray Dr. Nolan Morris Work Phone: Start: 06-23-2022 Dual energy X-ray absorptiometry Dr. Yaakov Morris Work Phone: Start: 04-23-2022 Screening mammography Mechelle Morris Work Phone: Start: 11-18-2021 US scan of thyroid Start: 09-06-[address] EUGENIE MORRIS DO Comment on above: [facility] History of subtotal thyroidectomy DR YAAKOV MORRIS DO Plan of Treatment Date Care Activity Detail Author Start: 06-25-2023 [facility] Start: 02-25-2023 [facility] Start: 02-10-2023 Blood chemistry [facility] Start: 02-10-2023 End: 02-10-[address] [facility] metabo lic 2000 panel - Serum or Plasma [facility] NM Heart Views W str ess and W radionuclide IV [facility] Patient Education [facility] Work Phone: Patient referral [facility] Work Phone: T4 free measurement [facility] T4 free measurement [facility] Thyroid stimulating hormone measurement [facility] Thyroid stimulating hormone measurement [facility] Triiodothyronine, fr ee measurement [facility] Triiodothyronine, fr ee measurement [facility] US Heart [facility] Vitamin D, 25-hydrox y measurement [facility] Immunizations Immunization Date Immunization Notes Care Provider [facility] 05-07-2025 influenza, high dose seasonal, preservative-free; Translations: [Fluzone High-Dose PF Prefilled Syringe ] DR YAAKOV MORRIS DO [facility] 02-07-[address] YAAKOV MORRIS DO [facility] 10-25-2024 tetanus toxoid, redu chrissy diphtheria toxoid, and acellular pertussis vaccine, adsorbed DR YAAKOV MORRIS DO [facility] 05-23-2024 SARS-CoV-2 (COVID-19 ) [id number] DR YAAKOV MORRIS DO [facility] 05-01-2024 influenza, high dose seasonal, preservative-free; Translations: [Fluad PF Prefilled Syringe ] DR YAAKOV MORRIS DO [facility] 11-01-2023 SARS-CoV-2 (COVID-19 ) [id number].[id number] DR YAAKOV MORRIS DO [facility] 05-31-2023 Pneumococcal conjuga te PCV20, polysaccharide USG110 conjugate, adjuvant, PF; Translations: [Prevnar 20] DR YAAKOV MORRIS DO [facility] 04-28-2023 influenza, high dose seasonal, preservative-free; Translations: [Fluad Quadrivalent PF ] DR YAAKOV MORRIS DO [facility] 07-06-2021 SARS-CoV-2 mRNA (tozinameran) vaccine DR YAAKOV MORRIS DO [facility] 11-01-2020 SARS-CoV-2 mRNA (tozinameran) vaccine DR YAAKOV MORRIS DO [facility] 10-11-2020 SARS-CoV-2 mRNA (tozinameran) vaccine DR YAAKOV MORRIS DO [facility] 07-04-2020 influenza virus vacc ine, unspecified formulation DR YAAKOV MORRIS DO [facility] 04-07-[address] YAAKOV MORRIS DO [facility] Comment on above: Result Comment: Pt s tates that she received Shingrix vaccine at [facility] [place] 09-05-2019 pneumococcal polysaccharide vaccine, 23 valent; Translations: [Pneumovax 23] DR YAAKOV MORRIS DO [facility] 07-02-2019 influenza virus vacc ine, unspecified formulation DR YAAKOV MORRIS DO [facility] 07-03-2018 influenza virus vacc ine, unspecified formulation DR YAAKOV MORRIS DO [facility] 05-30-2017 influenza virus vacc ine, unspecified formulation DR YAAKOV MORRIS DO [facility] Payers Date Payer Category Payer Private Health Insurance [id number] 2024 Self-pay [id number] 2017 Medicare [id number] 1950 Unknown [id number] .1.548051.3.579.2 1950 Unknown [id number] 840.1.231405.3.579.2 1950 Unknown [id number] .0.1.052104.3.579.2 1950 Unknown [id number] .0.1.020889.3.579.2. 1950 Unknown [id number] .0.1.890971.3.579.2 1950 Unknown [id number] 2.16.840.1.736137.3.579.2. 1950 Unknown [id number] 2.16.840.1.528724.3.579.2. 1950 Unknown [id number] 2.16.840.1.433267.3.579.2. 1950 Unknown [id number] 2.840.1.341639.3.579.2. 1950 Unknown [id number] 2..840.1.449842.3.579.2. 1950 Unknown [id number] 2.840.1.599131.3.579.2. 1950 Unknown [id number] 2.840.1.371059.3.579.2. 1950 Unknown [id number] 2.840.1.709892.3.579.2. 1950 Unknown [id number] 2.840.1.638390.3.579.2. 1950 Unknown [id number] 2.840.1.502635.3.579.2. 1950 Unknown [id number] 2.840.1.814513.3.579.2.627 Unknown SELF PAY INSURANCE [id number] Unknown [id number] 2.16.840.1.100503.3.579.2.462 Unknown [id number] 2.16.840.1.454568.3.579.2.462 Unknown [id number] 2.16.840.1.872015.3.579.2.462 Unknown [id number] 2.16.840.1.415248.3.579.2.462 Unknown [id number] 2.16.840.1.574237.3.579.2.462 Unknown [id number] 2.16.840.1.465621.3.579.2.462 Unknown [id number] 2.16.840.1.391840.3.579.2.462 Unknown [id number] 2.16.840.1.668782.3.579.2.462 Unknown [id number] 2.16.840.1.358670.3.579.2.462 Unknown [id number] 2.16.840.1.731660.3.579.2.462 Unknown [id number] 2.16.840.1.946708.3.579.2.462 Unknown [id number] 2.16.840.1.099556.3.579.2.462 Social History Date Type Detail Facility Start: 09-04-2019 End: 06-25-2023 Tobacco smoking status Never smoked tobacco (finding) [facility] Comment on above: no smoke exposure Sex Assigned At [facility] Start: 06-19-2013 End: 06-25-2023 Tobacco smoking status UTIS Unknown if ever smoked [facility] Start: 1950 Sex Assigned At Female [facility] Start: 10-08-2013 Sex Female (finding) [facility] Sex Female [facility] Mental Status Date Assessment Result Facility 06-25-2023 Cognitive function Level Of Cons ciousness Awake;Alert [facility] Work Phone: 02-25-2023 Cognitive function Awake;Alert;Appropriat e [facility] Work Phone: 02-10-2023 Cognitive function Voice/Name [facility] Work Phone: Clinical Notes 11-22-2024 to 04-30-2025 Note Date & Type Note Facility 04-30-2025 Discharge summary Note Date/Time April 30, 2025 11:26am [facility] Physical Therapy [facility] [address] [place] [address] / REHABILITATION SERVICES DISCHARGE SUMMARY MR#: [id number] Acct: [id number] Name: LEXUS CONTRERAS Rep #: [id number] : 1950 74 From: Imtiaz Hammond PT, ATC Referring Dr.: Dr. Yaakov Morris, DO Status: REG RCR Insurance: [employer]MO MEDICARE SELF PAY INSURANCE Patient Information Patient Information: LEXUS CONTRERAS was seen in my office for initial evaluation on 03/06/25. The following Plan of Care was established for this patient: POC Established Initial Frequency: 1x/Week Initial Duration: 2 Weeks Anticipated Interventions Patient/Client Instruction: Educate patient on: Condition and Plan of Care For the Purpose of:: To improve self management Therapeutic Exercise to Include: Strength training, Endurance training, Active ROM and Dynamic Lumbar Stabilization For the Purpose of:: To decrease pain, To improve muscle performance and motor function and To increase tolerance to activity/condition/position Last Seen Last Seen: This patient was last seen in our office . Pertinent comments regarding their Physical therapy will appear below: Pt phoned the clinic to report she is doing well and doesnt need any further PT. At this point I will be discontinuing this patient from physical therapy. I would be happy to see this patient again in the future if found appropriate by the physician. Thank you! Imtiaz Hammond, PT, ATC Balance/Gait/Functional tests Balance/Special Test Scores Lower Extremity Functional Score: 48 <Electronically signed by Imtiaz Hammond PT, ATC> 04/30/25 1126 CC: Dr. Yaakov Morris, DO ~ [facility] Signed [facility] Work Phone: [phone]) 474-220310-07-2025 Discharge summary [facility] Physical Therapy [place] [facility] [address] [place] [address] / REHABILITATION SERVICES DISCHARGE SUMMARY MR#: [id number] Acct: [id number] Name: LEXUS CONTRERAS Rep #: [id number] : 1950 74 From: Imitaz Hammond PT, ATC Referring Dr.: Dr. Yaakov Morris, Status: REG RCR Insurance: O MEDICARE SELF PAY INSURANCE Patient Information Patient Information: LEXUS CONTRERAS was seen in my office for initial evaluation on 03/06/25. The following Plan of Care was established for this patient: POC Established Initial Frequency: 1x/Week Initial Duration: 2 Weeks Anticipated Interventions Patient/Client Instruction: Educate patient on: Condition and Plan of Care For the Purpose of:: To improve self management Therapeutic Exercise to Include: Strength training, Endurance training, Active ROM and Dynamic Lumbar Stabilization For the Purpose of:: To decrease pain, To improve muscle performance and motor function and To increase tolerance to activity/condition/position Last Seen Last Seen: This patient was last seen in our office . Pertinent comments regarding their Physical therapy willappear below: Pt phoned the clinic to report she is doing well and doesnt need any further PT. At this point I will be discontinuing this patient from physical therapy. I would be happy to see this patient again in the future if found appropriate by the physician. Thank you! Imtiaz Hammond, PT, ATC Balance/Gait/Functional tests Balance/Special Test Scores Lower Extremity Functional Score: 48 04/30/25 1126 CC: Dr. Yaakvo Morris, DO ~ [facility] Signed [facility]05-01-2025 Evaluation note* Diagnosis Onset Date Resolution Status Admit Date Essential hypertension chronic Ma y 2024 2:27pm History of paroxysmal supraventricular tachycardia chronic November 22, 2024 2:27pm Mitral regurgitation chronic November 22, 2024 2:27pm Toxic nodular goiter chronic November 22, 2024 2:27pm Palpitations resolved November 22 2:27pm Osteopenia determined by x-ray chron ic December 06, 2024 9:20am Toxic nodular goiter chronic December 06, 2024 9:20am [facility] Work Phone: Discharge summary Author Андрей Chang [facility] February 10, 2023 5:50am Note Date/Time February 10, 2023 4:42 am [facility] Medical Records Department [address] [place] [address] Emergency Department Summary 02/10/23 MR#: [id number] Acct: [id number] Name: LEXUS CONTRERAS Rep #:[id number] : 1950 72 From: Андрей Chang MD PCP: Dr. Yaakov Morris, Status:REG ER Location: ED HPI History of Present Illness Chief Complaint: Palpitations Informant: patient Narrative Narrative: Patient presents with racing heartbeat that woke her up about an hour ago at about 3 AM. Maybe she has had this once before but it was brief, she followed up with her doctor and was put on medication for high blood pressure, that was several months ago. No known history of heart problems otherwise. She denies any chest discomfort tonight, dyspnea, syncope or near syncope. No other systemic symptoms. No recent illness, no long travel or immobilization/hospitalization recently, no history of leg pain or swelling, no history of venous thromboembolic disease. States that she usually does not drink caffeine, yesterday she did have a couple caffeinated beverages. No whpf-bfg-dlxpivd medications recently. No drug use. [facility] Medical History Arthritis Atrophy of vagina Goiter History of blood clots History of blood transfusion History of bone fractures History of cyst of breast mitral valve prolaspe Osteopenia Weight loss Home Medications aspirin 81 mg tablet,delayed release 81 mg PO DAILY@0800 06/11/13 [History Last Taken Unknown] calcium carbonate 600 mg-vitamin D3 20 mcg (800 unit) tablet 1 tab PO DAILY@109251 [History Last Taken Unknown] xewavpey-nuv-dgaxw acid 0.4 mg-lycopene 300 mcg-lutein 250 mcg tablet 1 ea PO DAILY 06/11/13 [History Last Taken Unknown] lisinopril 10 mg tablet 10 mg PO DAILY 02/10/23 [History Last Taken Unknown] Allergy/AdvReac Type Severity Reaction Status Date / Time chlorhexidine [From Aaliyah-Hex] Allergy Intermediate Hives Verified 02/10/23 04:42 minocycline Allergy unknown Verified 02/10/23 04:42 pneumococcal vaccine Allergy unknown Verified 02/10/23 04:42 [From Prevnar 13 (PF)] loratadine [From Claritin] AdvReac Other Verified 02/10/23 04:42 Family History Father Heart disease Kidney disease Mother Heart disease Uncle Heart disease Sister Hypertension Surgical History H/O thyroidectomy Social History Smoking Status: Never smoker alcohol intake: current alcohol intake frequency: holidays/special occasions only Alcohol type: wine substance use type: does not use what type of physical activity do you participate in: walking frequency: 3-4 times per week ROS ROS ED Constitutional Constitutional ED: Denies chills or fever(s) Eyes Eyes: Denies change in vision or diplopia ENT ENT ED: Denies rhinorrhea or sore throat Cardiovascular Cardiovascular: Reports palpitations and racing heartbeat; Denies chest pain Respiratory/Chest Respiratory/Chest: Denies cough or dyspnea Gastrointestinal Gastrointestinal: Denies abdominal pain, diarrhea, nausea or vomiting Genitourinary Genitourinary ED: Denies dysuria or hematuria Musculoskeletal Musculoskeletal: Denies back pain or neck pain Integumentary Denies abscess or rash Neurologic Neurologic: Denies headache(s), paresthesias or weakness Psychiatric Psychiatric: Denies anxiety or suicidal thoughts EXAM Physical Exam Const Vital Signs: 02/10/23 04:28 02/10/23 04:30 02/10/23 04:39 Temperature 98.2 F Temperature Source Temporal Pulse Rate 170 H Respiratory Rate 16 Respiratory Effort Normal Blood Pressure 115/86 H Blood Pressure Mean 95 Pulse Ox 100 Oxygen Delivery Method Room Air Room Air 02/10/23 04:52 02/10/23 05:35 Temperature Temperature Source Pulse Rate 88 85 Respiratory Rate 18 15 Respiratory Effort Blood Pressure 117/68 119/75 Blood Pressure Mean 84 89 Pulse Ox 100 95 Oxygen Delivery Method Room Air Room Air Positive well nourished and well developed General Appearance ED: well developed and NAD HEENT Reports moist mucous membranes normocephalic and atraumatic Eyes PERRL and EOMs intact bilaterally Neck full ROM and supple Resp normal respiratory effort and clear to auscultation bilaterally Cardio regular rate, regular rhythm and no murmurs Rate: tachycardic GI non-tender and non-distended Auscultation: normoactive bowel sounds Palpation: soft Back/Spine no CVA tenderness General Back: other FROM Extremity normal to inspection General Extremety ED: Negative for edema, pulses abnormal or tenderness General Extremity: Negative for edema or pulses abnormal Neuro oriented x3, CN's II-XII intact bilaterally and no sensory deficits noted Sensorium / Orientation: awake and alert Motor Exam: strength 5/5 throughout Psych mental status grossly normal Mood & Affect: anxious Skin no rashes or lesions noted and no wounds MDM MDM MDM Narrative Medical decision making narrative: Patient appears to be in SVT. It is faster than a flutter typically is, so she was given adenosine 6 mg IV push, this did not result in any change in her rhythm or ectopy/pauses, so this was repeated with 12 mg which resulted in breaking the rhythm to sinus tachycardia, the patient did feel better with resolution of symptoms. She had no recurrence of SVT or other dysrhythmias while being monitored. Blood work unremarkable, including troponin. With 1 episode I do not think we need to change any of her medications right now, and Luis not think we need any other emergent studies or admission since she had no symptoms of angina. I advised close outpatient follow-up with cardiology returnto the ER if she has recurrent symptoms/episodes. She is comfortable with that plan. Lab Data Attestation: I reviewed the patient's lab results. Labs: Laboratory Results - last 24 hr 02/10/23 04:30 WBC 10.1 RBC 4.55 Hgb 12.7 Hct 40.5 MCV 89.0 MCH 27.9 MCHC 31.4 L RDW Std Deviation 46.1 H RDW Coeff of Stephenie 14.0 Plt Count 440 MPV 9.3 Immature Gran % (Auto) 0.300 Neut % (Auto) 40.5 L Lymph % (Auto) 43.6 H Pierce % (Auto) 9.8 Eos % (Auto) 5.1 H Baso % (Auto) 0.7 Absolute Neuts (auto) 4.1 Absolute Lymphs (auto) 4.42 Nucleated RBC % 0 Sodium 140 Potassium 3.6 Chloride 104 Carbon Dioxide 29.0 Anion Gap 7 BUN 9 Creatinine 0.79 Estim Creat Clear Calc 36.53 Est GFR (MDRD) Af Amer 92 Est GFR (MDRD) Non-Af 76 BUN/Creatinine Ratio 11.3 Glucose 132 H Calcium 8.9 Troponin I High Sens 6 Rhythm Strip Rhythm Strip: SVT Rate: 175 Ectopy: None EKG Initial EKG: Attestation: I personally reviewed and interpreted this EKG as follows: Interpretation: No Acute Injury Pattern, Non-Specific ST Changes and - (Narrow complex supraventricular tachycardia) Prior: Changed (rhythm) Follow-up EKG: Attestation: I personally reviewed and interpreted this EKG as follows: Interpretation: Sinus Rhythm and No Acute Injury Pattern Prior EKG tracings: available for review (old, 101) Prior: Changed Procedures Other Procedures Procedure(s): Pharmacologic cardioversion with IV adenosine Critical Care Time Critical Care Time: Yes Critical care time (excluding procedures): 30-74 minutes (33 min, not including procedure time), Including time spent:, Discussing w/Patient &/or Family/Engineering Designer, Discussing w/Consultants, Arranging Admission or Transfer and Performing Direct Patient Care at Bedside Discharge Plan Triage Chief Complaint: Palpitations ED Provider: Андрей Chang Dx/Rx/DC Orders Clinical Impression: Supraventricular tachycardia Instructions: ED Understanding Supraventricular Tachycardia (SVT) Prescriptions: No Action aspirin 81 MG tablet 81 mg PO DAILY@0800 [id number]-[id number]-lycopen-lutein 1 EACH tablet 1 ea PO DAILY calcium carbonate-vitamin D3 1 TAB tablet 1 tab PO DAILY@0800 lisinopril 10 mg tablet 10 mg PO DAILY Patient Comments: TAKE 1 TABLET BY MOUTH EVERY DAY Primary Care Provider: Yaakov Morris Referrals: Jaleel Wolfe MD [Med Staff - Active Staff] - As soon as possible Yaakov Morris DO [Primary Care Provider] - Disposition Disposition: Home, Self Care What to do if you have Problems For any increased pain, shortness of breath, bleeding, nausea or vomiting, chestpain, or any unexpected problems, contact your Primary Care Provider. Call [facility] ([phone]) or report to the closest Emergency Room. Call 911 if necessary. 02/10/23 0550 <Electronically signed by Андрей Chang MD> Cosigner Signature (if applicable): CC: Dr. Yaakov Morris DO ~ Signed [facility] Work Phone: Evaluation + Plan note Future Appointments Appointment Date:12/16/2021 10:00:00 AM Scheduled Provider:BERNICE BASILIO Location:[facility] Appointment Type:CV OV Future Scheduled Tests Radiology* US Thyroid 10/30/21 [facility] evaluation + Plan note Future Appointments Appointment Date:11/05/2022 10:30:00 AM Scheduled Provider:YUMIKO ASTORGA Location:[facility] Appointment Type:PC OV Appointment Date:12/08/2022 02:30:00 PM Scheduled Provider:YAAKOV MORRIS DO Location:[facility] Appointment Type: Wellness Medicare Future Scheduled Tests Radiology* MA Mammo Screening Bilateral w/ Brigido 04/09/22 [facility] Evaluation + Plan note Future Appointments Appointment Date:02/04/2023 10:00:00 AM Scheduled Provider:YAAKOV MORRIS DO Location:[facility] Appointment Type:PC OV Appointment Date:05/06/2023 10:00:00 AM Scheduled Provider:YUMIKO ASTORGA Location:[facility] Appointment Type:PC OV Future Scheduled Tests Laboratory* Ferritin 01/31/23 * Iron Studies 01/31/23 Radiology* MA Mammo Screening Bilateral w/ Brigido 04/09/22 [facility] My Digital Shieldaluation + Plan note Future Appointments Appointment Date:02/04/2023 10:00:00 AM Scheduled Provider:YAAKOV MORRIS DO Location:[facility] Appointment Type:PC OV Appointment Date:05/06/2023 10:00:00 AM Scheduled Provider:YUMIKO ASTORGA Location:[facility] Appointment Type:PC OV Future Scheduled Tests Radiology* MA Mammo Screening Bilateral w/ Brigido 04/09/22 [facility] Evaluation + Plan note Future Appointments Appointment Date:04/21/2023 09:30:00 AM Scheduled Provider:YAAKOV MORRIS DO Location:[facility] Appointment Type:PC OV Appointment Date:04/28/2023 10:00:00 AM Scheduled Provider:YAAKOV MORRIS DO Location:[facility] Appointment Type: Wellness Medicare Appointment Date:05/05/2023 11:30:00 AM Scheduled Provider:YAAKOV MORRIS DO Location:[facility] Appointment Type:PC OV Appointment Date:05/06/2023 10:00:00 AM Scheduled Provider:YUMIKO ASTORGA Location:[facility] Appointment Type:PC OV Future Scheduled Tests Laboratory* Stool for Occult Blood (Lab) 02/04/23 Radiology* MA Mammo Screening Bilateral w/ Brigido 05/07/23 [facility] My Digital Shieldaluation + Plan note Future Appointments Appointment Date:04/28/2023 10:00:00 AM Scheduled Provider:YAAKOV MORRIS DO Location:[facility] Appointment Type:PC Wellness Medicare Appointment Date:05/03/2023 09:45:00 AM Scheduled Provider: Location:[facility] Appointment Type:PC Nurse BP Check Appointment Date:05/05/2023 11:30:00 AM Scheduled Provider:YAAKOV MORRIS DO Location:[facility] Appointment Type:PC OV Appointment Date:05/31/2023 10:30:00 AM Scheduled Provider:YAAKOV MORRIS DO Location:[facility] Appointment Type:PC OV Future Scheduled Tests Laboratory* Stool for Occult Blood (Lab) 02/04/23 Radiology* MA Mammo Screening Bilateral w/ Brigido 05/07/23 [facility] evaluation + Plan note Future Appointments Appointment Date:2023 09:30:00 AM Scheduled Provider:YAAKOV MORRIS DO Location:[facility] Appointment Type:PC OV Future Scheduled Tests Laboratory* Ferritin 06/01/23 * Folate Level 06/01/23 * Stool for Occult Blood (Lab) 02/04/23 * Vitamin B12 Level 06/01/23 * TIBC 06/01/23 [facility] evaluation + Plan note Future Appointments Appointment Date:2023 09:30:00 AM Scheduled Provider:YAAKOV MORRIS DO Location:[facility] Appointment Type:PC OV Future Scheduled Tests Laboratory* Stool for Occult Blood (Lab) 02/04/23 [facility] Evaluation + Plan note Future Appointments Appointment Date:05/01/2024 09:30:00 AM Scheduled Provider:YAAKOV MORRIS DO Location:[facility] Appointment Type:PC Wellness Medicare Future Scheduled Tests Laboratory* Stool for Occult Blood (Lab) 02/04/23 [facility] Evaluation + Plan note Future Appointments Appointment Date:10/30/2024 09:30:00 AM Scheduled Provider:YAAKOV MORRIS DO Location:[facility] Appointment Type:PC OV [facility] Evaluation + Plan note Future Appointments Appointment Date:02/21/2025 09:30:00 AM Scheduled Provider:YAAKOV MORRIS DO Location[facility] Appointment Type:PC OV Follow Up [facility] Evaluation + Plan note Future Appointments Appointment Date:10/29/2025 10:00:00 AM Scheduled Provider:YAAKOV MORRIS DO Location:[facility] Appointment Type: OV Future Scheduled Tests Radiology* MA Mammo Screening Bilateral w/ Brigido 05/17/25 [facility] evaluation noteNo assessment information available [facility] Work Phone: Evaluation note* Diagnosis Onset Date Resolution Status Multinodular goiter (nontoxic) chronic Osteopenia determined by x-ray chronic [facility] Work Phone: Evaluation note* Diagnosis Onset Date Resolution Status History of paroxysmal supraventricular tachycardia acute Palpitations acute Essential hypertension chron ic [facility] Work Phone: Evaluation note* Diagnosis Onset Date Resolution Status Essential hypertension chron ic History of paroxysmal supraventricular tachycardia resolved Palpitations resolved Toxic nodular goiter chronic Essential hypertension chron ic Toxic nodular goiter chronic History of paroxysmal supraventricular tachycardia resolved Palpitations resolved [facility] Work Phone: Hospital course Narrative No data available for this section [facility] Hospital Discharge instructions No data available for this section [facility] Progress note No data available for this section [facility] Reason for referral (narrative)No reason for [facility] Chief Complaint and Reason for Visit Chief Complaint THYROID NODULES Chief Complaint SCREENING FU OSTEOPENIA DETERMINED BY XRAY Reason for Visit Multinodular goiter (nontoxic) Osteopenia determined by x-ray Chief Complaint Palpitations Chief Complaint Palpitations PALPITATIONS PALP / [facility] 02/09/23 ([facility] ED) E ORDER Reason for Visit History of paroxysma l supraventricular tachycardia Palpitations Essential hypertension Chief Complaint Palpitations PALPITATIONS PALP / [facility] 02/09/23 ([facility] ED) E ORDER Palpitations Palpitations Amb Documentation Amb Documentation Reason for Visit History of paroxysma l supraventricular tachycardia Palpitations Essential hypertension Chief Complaint Palpitations PALPITATIONS PALP / [facility] 02/09/23 ([facility] ED) E ORDER Palpitations Palpitations Amb Documentation Amb Documentation SCREENING Reason for Visit History of paroxysma l supraventricular tachycardia Palpitations Essential hypertension Chief Complaint PALPITATIONS PALP / [facility] 02/09/23 ([facility] ED) E ORDER Palpitations Palpitations Amb Documentation Amb Documentation SCREENING 1 Y FU 3 M FU palpitations Reason for Visit Essential hypertensi on History of paroxysmal supraventricular tachycardia Palpitations Toxic nodular goiter Essential hypertension Toxic nodular goiter History of paroxysmal supraventricular tachycardia Palpitations Chief Complaint INT LABS Chief Complaint Admit Date 6 M FU November 22, 2024 2:27pm BP CHECK December 03, 2024 2:02p m 6 M FU December 06, 2024 9:20a m Reason for Visit Admit Date Essential hypertension November 22, 2024 2:2 7pm History of paroxysmal supraventricular t achycardia November 22, 2024 2:27pm Mitral regurgitation November 22, 2024 2:27p m Toxic nodular goiter November 22, 2024 2:27p m Palpitations November 22, 2024 2:27pm Osteopenia determined by x-ray December 06, 2024 9:20am Toxic nodular goiter December 06, 2024 9:20 am Chief Complaint Admit Date 6 M FU November 22, 2024 2:27pm BP CHECK December 03, 2024 2:02p m 6 M FU December 06, 2024 9:20a m EDEMA January 23, 2025 10:44 am Chief Complaint Admit Date EDEMA January 23, 2025 10:44 am BILATERAL LEG EDEMA January 23, 2025 10:58 am R HIP PAIN. RX HERE March 21, 2025 12 :30pm INT LABS April 09, 2025 8:52am Family History No Family History Records Found Relationship Condition Age at Onset Recorded Date/T radha father Cardiac disease Unknown Kidney disorder Unknown mother Cardiac disease Unknown uncle Cardiac disease Unknown sister Hypertension Unknown Relationship Condition Age at Onset Recorded Date/T radha father Cardiac disease Unknown Kidney disorder Unknown Myocardial infarction Unknown mother Cardiac disease Unknown uncle Cardiac disease Unknown sister Hypertension Unknown Coronary artery disease Unknown brother Coronary artery disease Unknown Hypertension Unknown Advance Directives No Advanced Directives Records Found Advance Directive Response Recorded Date/ Time Advance Directives No May 3:00pm Living Will No June 11 013 3:00pm Power of Gluing Crew Leader No June 11, 2013 3:00pm Advance Directive Response Recorded Date/ Time Advance Directives No May 2:00pm Living Will No June 11 013 2:00pm Power of Gluing Crew Leader No June 11, 2013 2:00pm Advance Directive Response Recorded Date/ Time Advance Directives No October 02 3:50pm Living Will No February 10, 2023 4:30am Power of Gluing Crew Leader No February 10 4:30am Advance Directive Response Recorded Date/ Time Advance Directives No October 02 3:50pm Living Will No February 25, 2023 10:47am Power of Gluing Crew Leader No February 25 10:47am Advance Directive Response Recorded Date/ Time Advance Directives No October 02 2:50pm Living Will No June 25 3:03am Power of Gluing Crew Leader No June 25, 2023 3:03am Advance Directive Response Recorded Date/ Time Advance Directives No October 02 3:50pm Living Will No June 25 4:03am Power of Gluing Crew Leader No June 25, 2023 4:03am Advance Directive Response Recorded Date/ Time Advance Directives No October 02 3:50pm Summary Purpose Additional Source Comments Care Team (unrecognized sect ion and content) Team Status: Active Member Role Status Dates Dr. Giacomo Martinez DO Family Provider Active Dr. Yaakov Morris DO Primary Care Provider Active Team Status: Inactive Member Role Status Dates Dr. Yaakov Morris DO Primary Care Provider Active Dr. Андрей Chang MD Emergency Provider Active Team Status: Inactive Member Role Status Dates Dr. Yaakov Morris DO Primary Care Provider, Referring P rovider Active Dr. Jorgito Reid MD Attending Provider Active Team Status: Inactive Member Role Status Dates Dr. Yaakov Morris DO Primary Care Provider Active Dr. Андрей Chang MD Attending Provider, Emergency Provider Active Team Status: Inactive Member Role Status Dates Dr. Yaakov Morris DO Primary Care Provider Active Dr. Tevin Vargas , Attending Provider, Emergency Provider Active Team Status: Inactive Member Role Status Dates Dr. Yaakov Morris DO Primary Care Provider Active Dr. Jorgito Reid MD Attending Provider, Referring Pr ovider Active Team Status: Active Member Role Status Dates Dr. Yaakov Morris DO Primary Care Provider Active Dr. Jorgito Reid MD Attending Provider , Referring Provider, Other Provider Active Team Status: Active Member Role Status Dates Dr. Yaakov Morris DO Primary Care Provider Active Cheryl Osman RESIDENTIAL SALES REPRESENTATIVE, RESIDENTIAL SALES REPRESENTATIVE-C Attending Provider Active Team Status: Inactive Member Role Status Dates Dr. Yaakov Morris DO Primary Care Provide r, Attending Provider, Referring Provider Active Team Status: Inactive Member Role Status Dates Dr. Yaakov Morris DO Primary Care Provider, Referring P rovider Active Dr. Bruce Castro MD Attending Provider Active Team Status: Inactive Member Role Status Dates Dr. Yaakov Morris DO Primary Care Provider Active Dr. Bruce Castro MD Attending Provider, Referring Provi ritu Active Team Status: Active Member Role Status Dates Dr. Yaakov Morris DO Primary Care Provider Active Team Status: Inactive Member Role Status Dates Dr. Yaakov Morris DO Primary Care Provider Active Start: September 13, 2024 End: September 13, 2024 Dr. Bruce Castro MD Attending Provider Active Sta rt: September 13, 2024 End: September 13, 2024 Dr. Bruce Castro MD Referring Provider Active Sta rt: September 13, 2024 End: September 13, 2024 Team Status: Inactive Member Role Status Dates Dr. Yaakov Morris DO Primary Care Provider Active Start: November 22, 2024 End: November 22, 2024 Dr. Yaakov Morris DO Referring Provider Active St art: November 22, 2024 End: November 22, 2024 Dr. Jorgito Reid MD Attending Provider Active Start: November 22, 2024 End: November 22, 2024 Team Status: Inactive Member Role Status Dates Dr. Yaakov Morris DO Primary Care Provider Active Start: December 03, 2024 End: December 03, 2024 Dr. Yaakov Morris DO Referring Provider Active St art: December 03, 2024 End: December 03, 2024 Dr. Jorgito Reid MD Attending Provider Active Start: December 03, 2024 End: December 03, 2024 Team Status: Inactive Member Role Status Dates Dr. Yaakov Morris DO Primary Care Provider Active Start: December 06, 2024 End: December 06, 2024 Dr. Yaakov Morris DO Referring Provider Active St art: December 06, 2024 End: December 06, 2024 Dr. Bruce Castro MD Attending Provider Active Sta rt: December 06, 2024 End: December 06, 2024 Team Status: Active Member Role/Relationship Status Dates Dr. Yaakov Morris DO Primary Care Provider Active Team Status: Inactive Member Role/Relationship Status Dates Dr. Yaakov Morris DO Primary Care Provider Active Start: November 22, 2024 End: November 22, 2024 Dr. Yaakov Morris DO Referring Provider Active St art: November 22, 2024 End: November 22, 2024 Dr. Jorgito Reid MD Attending Provider Active Start: November 22, 2024 End: November 22, 2024 Team Status: Inactive Member Role/Relationship Status Dates Dr. Yaakov Morris DO Primary Care Provider Active Start: December 03, 2024 End: December 03, 2024 Dr. Yaakov Morris DO Referring Provider Active St art: December 03, 2024 End: December 03, 2024 Dr. Jorgito Reid MD Attending Provider Active Start: December 03, 2024 End: December 03, 2024 Team Status: Inactive Member Role/Relationship Status Dates Dr. Yaakov Morris DO Primary Care Provider Active Start: December 06, 2024 End: December 06, 2024 Dr. Yaakov Morris DO Referring Provider Active St art: December 06, 2024 End: December 06, 2024 Dr. Bruce Castro MD Attending Provider Active Sta rt: December 06, 2024 End: December 06, 2024 Team Status: Inactive Member Role/Relationship Status Dates Dr. Yaakov Morris DO Primary Care Provider Active Start: December 10, 2024 End: December 10, 2024 Dr. Bruce Castro MD Attending Provider Active Sta rt: December 10, 2024 End: December 10, 2024 Dr. Bruce Castro MD Referring Provider Active Sta rt: December 10, 2024 End: December 10, 2024 Team Status: Inactive Member Role/Relationship Status Dates Dr. Yaakov Morris DO Primary Care Provider Active Start: January 23, 2025 End: January 23, 2025 Dr. Yaakov Morris DO Attending Provider Active St art: January 23, 2025 End: January 23, 2025 Dr. Yaakov Morris DO Referring Provider Active St art: January 23, 2025 End: January 23, 2025 Team Status: Active Member Role/Relationship Status Dates Dr. Yaakov Morris DO Primary care physician Active Team Status: Inactive Member Role/Relationship Status Dates Dr. Yaakov Morris DO Primary care physician Active Start: January 23, 2025 End: January 23, 2025 Dr. Yaakov Morris DO Attending physician Active S tart: January 23, 2025 End: January 23, 2025 Dr. Yaakov Morris DO Referring Provider Active St art: January 23, 2025 End: January 23, 2025 Team Status: Active Member Role/Relationship Status Dates Dr. Tony Meneses MD Attending physician Active Start: January 23, 2025 Dr. Yaakov Morris DO Referring Provider Active St art: January 23, 2025 Team Status: Active Member Role/Relationship Status Dates Dr. Yaakov Morris DO Primary care physician Active Start: March 21, 2025 Dr. Yaakov Morris DO Attending physician Active S tart: March 21, 2025 Dr. Yaakov Morris DO Referring Provider Active St art: March 21, 2025 Team Status: Inactive Member Role/Relationship Status Dates Dr. Yaakov Morris DO Primary care physician Active Start: April 09, 2025 End: April 09, 2025 RANDAL Solares Attending physician Active Start: April 09, 2025 End: April 09, 2025 David , RESIDENTIAL SALES REPRESENTATIVE-C Referring Provider Active Start: April 09, 2025 End: April 09, 2025 Team Status: Inactive Member Role/Relationship Status Dates Dr. Yaakov Morris DO Primary care physician Active Start: March 21, 2025 End: March 21, 2025 Dr. Yaakov Morris DO Attending physician Active S tart: March 21, 2025 End: March 21, 2025 Dr. Yaakov Morris DO Referring Provider Active St art: March 21, 2025 End: March 21, 2025 Goals (unrecognized section and content) Goals may be documented in a n alternate section INFORMATION SOURCE (unrecogn ized section and content) DATE CREATED AUTHOR 12/07/2023 [facility] ([place] DATE CREATED AUTHOR AUTHOR'S ORGANIZ ATION 05/17/2025 [facility] DATE CREATED AUTHOR AUTHOR'S ORGANIZ ATION 06/02/2025 [facility] FOR RECORDS PERTAINING TO PATIENTS WHO ARE OR HAVE BEEN ENROLLED IN A CHEMICAL DEPENDENCY/SUBSTANCEABUSE PROGRAM, SOME INFORMATION MAY BE OMITTED. This clinical summary was aggregated from multiple sources. Caution should be exercised in using it in the provision of clinical care. This summary normalizes information from multiple sources, and as a consequence, information in this document may materially change the coding, format and clinical context of patient data. In addition, data may be omitted in some cases. CLINICAL DECISIONS SHOULD BE BASED ON THE PRIMARY CLINICAL RECORDS. [facility]. provides no warranty or guarantee of the accuracy or completeness of information in this document.
== END | disposition home or self-care (01) ==
LOC: US 12:35
PROVIDERS: PCP Student in an Organized Health Care Education/Training Program; Referring Provider Internal Medicine Endocrinology, Diabetes & Metabolism; Visit Provider Internal Medicine Endocrinology, Diabetes & Metabolism
DX: E05.20 Thyrotoxicosis with toxic multinodular goiter without thyrotoxic crisis or storm (principal)
CPT/HCPCS: 76536

== ENCOUNTER → 2025-06-24 | Outpatient (CLI) | payer MEDICARE, SELFPAY ==
[2025-06-24 11:16] LABS: Anion Gap 9 (5-15); BUN 8 mg/dL (4-19); BUN/Creat Ratio 11.9 RATIO (10-20); Calcium,Total 9.1 mg/dL (7.6-11.0); Carbon Dioxide 28.0 mmol/L (21.0-32.0); Chloride 104 mmol/L (98-108); Glucose 82 mg/dL (70-99); Potassium 4.4 mmol/L (3.3-5.1)
[2025-06-24 11:27] LABS: Free T3 2.8 pg/mL (2.18-3.98)
== END | disposition home or self-care (01) ==
LOC: LAB 08:30
PROVIDERS: Internal Medicine Endocrinology, Diabetes & Metabolism; PCP Student in an Organized Health Care Education/Training Program; Referring Provider Internal Medicine Cardiovascular Disease; Visit Provider Internal Medicine Cardiovascular Disease
DX: I10 Essential (primary) hypertension (principal); E05.20 Thyrotoxicosis with toxic multinodular goiter without thyrotoxic crisis or storm
CPT/HCPCS: 36415; 80048; 84439; 84443; 84481

== ENCOUNTER → 2025-07-16 | Outpatient (CLI) | payer MEDICARE, SELFPAY ==
--- NOTE | 2025-07-16 09:00 | CYSPIN_PTH ---
PATIENT: LEXUS CONTRERAS LOC: [facility] U#:[id number] AGE/SX: 74/F ROOM: RE07/16/[address]: Dr. Nikita Mayers MD : 1950 BED: DIS: 07/16/2025 SPEC #: [id number] RECD: 07/16/25 10:37 STATUS: MAXIMILIANO RERoger #: [id number] LUIS: 07/16/25 09:[address]: Nikita Mayers DEPT: CYTOLOGY RECD BY: China Garcia ENTERED: 07/16/25 13:44 SP TYPE: CYSPIN FL OTHR DR: Dr. Yaakov Morris DO Tissues: Thyroid gland, NOS Procedures: Pap Stain (control) Special Stain Group II Diff Quik Stain (control) Cytospin Fluid HEADER OPERATION: Fine needle aspiration of left inferior thyroid nodule PRE-OP DIAGNOSIS: Left thyroid nodule TISSUE SUBMITTED: A. Left inferior thyroid nodule DIAGNOSIS CYTOLOGY A. Left inferior thyroid, nodule, FNA (cytospin, smear x4): - Benign (TBS II). MS 07/17/2025 CYTOLOGY STUDY Slides are reviewed. CYTOLOGY GROSS A. Received is 30 ml of pink cytolyt with particles and 4 slides labeled with the patient's name and and designated per the requisition as Left inferior thyroid nodule. Submitted for cytology and cytospin. MR 07/16/2025 CPT: 43622
== END | disposition home or self-care (01) ==
LOC: LABSPEC 10:44
PROVIDERS: PCP Student in an Organized Health Care Education/Training Program; Referring Provider Surgery; Visit Provider Surgery
DX: E04.1 Nontoxic single thyroid nodule (principal)
CPT/HCPCS: 88108; 88313